=== PATIENT | male | born 1950 | race Caucasian/White ===

== ENCOUNTER 2022-09-16 09:51 | Outpatient (CLI) | payer MEDICARE, OTHER, SELFPAY ==
--- NOTE | ~2022-09-16 | CT_ITS ---
EXAMINATION: CT abdomen pelvis w con DATE: 09/16/2022 10:43 INDICATION: Abdominal pain. TECHNIQUE: Computed tomography (CT) of the abdomen and pelvis was performed with 100 mL Omnipaque 350 intravenous contrast. Automated exposure control and iterative reconstruction technique were employe d. The dose-length product was 586.18 mGy-cm. COMPARISON: None. FINDINGS: The visualized portions of the lung bases demonstrate mild atelectasis. There is mild eleva tion of right hemidiaphragm. No pleural effusion. The heart size is normal. No pericardial effusion. There are coronary artery calcifications. The liver demonstrates focal steatosis adjacent to the falc iform ligament. The gallbladder, spleen, pancreas, and adrenal glands are normal. There is cortical t hinning of the kidneys. There is a 9 mm cyst in right kidney. There is a 1 mm stone in right kidney. There is a 1 mm stone in left kidney. There is a cluster of stones in the bladder. The prostate is mo derately enlarged. There are no dilated loops of bowel. The appendix is normal. There are no patholog ically enlarged lymph nodes. There is no free intraperitoneal fluid. There is old fat necrosis in the inferior anterior peritoneum. There is a right inguinal hernia containing fat. There is severe lumba r spondylosis. There are changes of anterior fusion procedure from L4 to S1. Lumbar dextroscoliosis i s noted. IMPRESSION: 1. Stones in the kidneys and bladder. 2. Right inguinal hernia containing fat. Reviewed, dictated and finalized at location A. 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
[2022-09-16 10:35] LABS: Estimated Glomerular Filt Rate > 60
[2022-09-16 11:30] LABS: Basophils Percent Auto 0.5 % (0.2-1.2); Eosinophils Percent Auto 0.3 % (0-4.4); Hematocrit 50.1 % (42.0-52.0); Hemoglobin 16.7 g/dL (14.0-18.0); Immature Granulocyte Absolute 0.03 K/mm3 (0.00-0.031); Immature Granulocyte Percent A 0.5 % (0-0.5); Lymphocytes Absolute Auto 1.13 K/mm3 (0.9-3.2); Lymphocytes Percent Auto 18.9 % (18.3-44.2); Mean Corpuscular HGB Conc 33.3 g/dl (32-36); Mean Corpuscular Hemoglobin 30.1 pg (26-34); Mean Corpuscular Volume 90.4 fl (80-100); Mean Platelet Volume 9.8 fl (7.4-10.4); Monocytes Absolute Auto 0.6 K/mm3 (0.1-0.6); Monocytes Percent Auto 10.4 % (2.6-8.5); Neutrophils Absolute Auto 4.2 K/mm3 (1.3-6.7); Neutrophils Percent Auto 69.4 % (45.5-73.1); Platelet Count Result 200 k/mm3 (150-375); Red Blood Count 5.54 M/mm3 (4.6-6.20); Red Cell Distribution Width 16.3 % (11.5-14.5)
[2022-09-16 11:41] LABS: Alanine Aminotransferase 30 U/L (6-50); Albumin Level 4.6 g/dL (3.5-5.1); Alkaline Phosphatase 53 U/L (38-126); Amylase 70 U/L (30-110); Anion Gap 6 mmol/L (8-16); Aspartate Amino Transferase 31 U/L (17-59); Bilirubin,Total 0.8 mg/dL (0.2-1.3); Blood Urea Nitrogen 24 mg/dL (9-20); Calcium 10.4 mg/dL (8.4-10.2); Carbon Dioxide 32 mmol/L (22-30); Chloride 99 mmol/L (98-107); Estimated Glomerular Filt Rate > 60; Glucose 99 mg/dL (65-110); Lipase 63 U/L (23-300); Potassium 4.4 mmol/L (3.4-5.0); Sodium 137 mmol/L (137-145)
[2022-09-16 12:04] LABS: Appearance Urine Clear (Clear); Bilirubin Urine Negative (Negative); Blood Urine 1+ (Negative); Color Urine Yellow (Yellow); Glucose Urine UA Negative (Negative); Ketones Urine Negative (Negative); Leukocyte Esterase Ur Negative LEU/UL (Negative); Nitrate Urine Negative (Negative); Protein Urine Negative (Negative); Specific Grav Ur <= 1.005 (1.001-1.035); Urobilinogen Urine 0.2 mg/dL (<2.0)
[2022-09-16 13:57] LABS: Add Urine Microscopic? YES
== END 2022-09-16 09:52 | disposition home or self-care (01) ==
PROVIDERS: PCP Family Medicine; Visit Provider Family Medicine
DX: R10.9 Unspecified abdominal pain (principal); N20.0 Calculus of kidney; K40.90 Unilateral inguinal hernia, without obstruction or gangrene, not specified as recurrent
CPT/HCPCS: 74177; 80048; 80076; 81001; 82150; 83690; 85025; Q9967

== ENCOUNTER 2023-01-18 09:53 | Outpatient (CLI) | payer MEDICARE, OTHER, SELFPAY ==
--- NOTE | ~2023-01-18 | XR_ITS ---
EXAMINATION: XR abdomen/kub 1V DATE: 01/18/2023 10:10 INDICATION: Benign prostatic hypertrophy with urinary obstruction. TECHNIQUE: A supine view of the abdomen on 2 radiographs was obtained. COMPARISON: CT abdomen and pelvis 09/16/2020 FINDINGS: There are no dilated loops of bowel. There are phleboliths in the pelvis. There are stones in the bladder measuring up to 4 mm. IMPRESSION: 1. Small bladder stones. Reviewed, dictated and finalized at location A. IMPRESSION: 1. Small bladder stones.
== END 2023-01-18 09:54 | disposition home or self-care (01) ==
PROVIDERS: PCP Family Medicine; Visit Provider Urology
DX: N40.1 Benign prostatic hyperplasia with lower urinary tract symptoms (principal); N21.0 Calculus in bladder
CPT/HCPCS: 74018

== ENCOUNTER 2024-01-25 09:53 | Outpatient (CLI) | payer MEDICARE, OTHER, SELFPAY ==
--- NOTE | ~2024-01-25 | XR_ITS ---
EXAMINATION: XR abdomen/kub 1V DATE: 01/25/2024 10:07 INDICATION: Bilateral kidney stones. TECHNIQUE: A supine view of the abdomen on 2 radiographs was obtained. COMPARISON: None. FINDINGS: There are no dilated loops of bowel. The kidneys are obscured by bowel. There are calcifica tions overlying the pelvis measuring up to 5 mm. There are changes of anterior fusion procedure at L4 -L5 and L5-S1. There is a total left hip arthroplasty. IMPRESSION: 1. Calcifications measuring up to 5 mm overlying the pelvis, which may be phleboliths or bladder ston es. Reviewed, dictated and finalized at location E. IMPRESSION: 1. Calcifications measuring up to 5 mm overlying the pelvis, which may be phleb oliths or bladder stones.
== END 2024-01-25 09:54 | disposition home or self-care (01) ==
PROVIDERS: PCP Family Medicine; Visit Provider Urology
DX: N20.0 Calculus of kidney (principal)
CPT/HCPCS: 74018

== ENCOUNTER 2024-03-03 10:48 | Inpatient (IN) | payer MEDICARE, OTHER, SELFPAY ==
[2024-03-03] VITALS (19 sets, daily range): BP systolic 116–167; BP diastolic 96–130; PULSE 52–126; RESP 13–22; TEMP 35.6–36.6; O2SAT 95–98; BMI 29.8
--- NOTE | 2024-03-03 | ECHO_ITS ---
Patient Info Name: Marko Lyons Age: 73 years : 1950 Gender: Male Ht: 67 in Wt: 190 lbs BSA: 2.04 m2 HR: 112 bpm Technical Quality: Fair Exam Date: 03/03/2024 3:59 PM Exam Location: Echo Lab Patient Status: Outpatient Admit Date: 03/03/2024 Staff Ordering Physician: Lizbeth Cancino APRN Cyber Ops Planner: Sara Brumfield RDCS Attending Provider: Olga Carrillo MD Referring Physician: Julita CALHOUN; Exam Type: CA echo doppler color flow Study Info Indications I48.1 - Persistent atrial fibrillation Complete two-dimensional, color flow and Doppler transthoracic echocardiogram is performed. Summary 1. Complete two-dimensional, color flow and Doppler transthoracic echocardiogram is performed. 2. Left ventricular systolic function is severely reduced, estimated at 25-30%. 3. Right ventricular systolic function is reduced. 4. Left atrial chamber dimension is moderately enlarged. 5. Right atrial chamber dimension is moderately enlarged. 6. There is moderate mitral valve regurgitation. Left Ventricle Left ventricular chamber dimension is mildly enlarged. Left ventricular systolic function is severely reduced, estimated at 25-30%. There is no increased left ventricular wall thickness. Right Ventricle Right ventricular chamber dimension is mildly enlarged. Right ventricular systolic function is reduced. Left Atria Left atrial chamber dimension is moderately enlarged. Right Atria Right atrial chamber dimension is moderately enlarged. Aortic Valve The aortic valve is trileaflet. There is no aortic valve sclerosis. There is no aortic valve stenosis. There is no aortic valve regurgitation. Pulmonic Valve The pulmonic valve is not well visualized. Mitral Valve The mitral valve has normal leaflets. There is no mitral valve stenosis. There is moderate mitral valve regurgitation. Tricuspid Valve The tricuspid valve leaflets are normal. There is mild tricuspid valve stenosis. There is no tricuspid valve regurgitation. Mild pulmonary hypertension, estimated pulmonary arterial systolic pressure is 39 mmHg. Pericardium/Pleural The pericardium appears normal. There is no pericardial effusion. Inferior Vena Cava Inferior vena cava is not well visualized. Aorta The aortic root size at the sinus of Valsalva is normal. The prox ascending aorta size is normal. Left Ventricular Outflow Tract Name Value Normal LVOT 2D LVOT Diameter 2.0 cm LVOT Doppler LVOT Peak Gradient 2 mmHg LVOT Mean Gradient 1 mmHg LVOT VTI 11 cm LVOT VTI/AV VTI Ratio 0.7 LVOT Stroke Volume 36 ml LVOT CO 9.0 l/min LVOT CI 4.4 l/min/m2 Pulmonic Valve Name Value Normal RVOT Doppler RVOT Peak Gradient 0 mmHg PV Doppler
--- NOTE | ~2024-03-03 | XR_ITS ---
Portable chest x-ray Comparison: None Clinical History: Weakness Findings: Lungs are clear, without focal consolidation or pleural effusion. Cardiomediastinal silho uette is enlarged. Bones and soft tissues are unremarkable. Impression: Clear lungs. Cardiomegaly. Reviewed, dictated and finalized at location . Impression: Clear lungs. Cardiomegaly.
--- NOTE | 2024-03-03 11:12 | ECG_ITS ---
SEE SCANNED COPY FOR CONFIRMED REPORT MTDD
[2024-03-03 11:22] LABS: Basophils Absolute Auto 0.1 K/mm3 (0.0-0.1); Eosinophils Absolute Auto 0.1 K/mm3 (0-0.3); Eosinophils Percent Auto 1.8 % (0-4.4); Hematocrit 50.7 % (42.0-52.0); Hemoglobin 16.9 g/dL (14.0-18.0); Immature Granulocyte Absolute 0.03 K/mm3 (0.00-0.031); Immature Granulocyte Percent A 0.6 % (0-0.5); Lymphocytes Absolute Auto 1.27 K/mm3 (0.9-3.2); Lymphocytes Percent Auto 24.8 % (18.3-44.2); Mean Corpuscular HGB Conc 33.3 g/dl (32-36); Mean Corpuscular Hemoglobin 29.5 pg (26-34); Mean Corpuscular Volume 88.6 fl (80-100); Mean Platelet Volume 9.7 fl (7.4-10.4); Monocytes Absolute Auto 0.4 K/mm3 (0.1-0.6); Monocytes Percent Auto 7.2 % (2.6-8.5); Neutrophils Absolute Auto 3.3 K/mm3 (1.3-6.7); Neutrophils Percent Auto 64.6 % (45.5-73.1); Platelet Count Result 150 k/mm3 (150-375); Red Blood Count 5.72 M/mm3 (4.6-6.20); Red Cell Distribution Width 17.5 % (11.5-14.5); White Blood Count 5.1 K/mm3 (4.5-10.0)
[2024-03-03 11:32] LABS: Alanine Aminotransferase 30 U/L (6-50); Albumin Level 4.9 g/dL (3.5-5.1); Alkaline Phosphatase 59 U/L (38-126); Anion Gap 8 mmol/L (4-12); Aspartate Amino Transferase 41 U/L (17-59); Bilirubin,Total 1.1 mg/dL (0.2-1.3); Blood Urea Nitrogen 16 mg/dL (9-20); Calcium 10.5 mg/dL (8.4-10.2); Carbon Dioxide 26 mmol/L (22-30); Chloride 105 mmol/L (98-107); Estimated CRCL calculation 76 ml/min; Estimated Glomerular Filt Rate > 60; Glucose 101 mg/dL (65-110); Potassium 4.4 mmol/L (3.4-5.0); Sodium 139 mmol/L (137-145)
[2024-03-03] MEDS: MAGNESIUM SULF 2 GM/WATER 50ML 2 GM/50 ML BAG IVPB (11:33)
[2024-03-03] MEDS: LACTATED RINGERS 1,000 ML 999 ML IV CONT (11:33)
[2024-03-03 11:41] LABS: NT Pro B Type Natriuretic Pept 803 pg/mL (19.9-100)
[2024-03-03 11:46] LABS: D Dimer 0.44 ug/mL (<0.48)
[2024-03-03] MEDS: METOPROLOL TARTRATE 50 MG TAB 25 MG PO (11:50)
[2024-03-03] MEDS: METOPROLOL TARTRATE INJ 5 MG/5 ML VIAL IV PUSH (11:50)
[2024-03-03 12:57] LABS: Troponin I < 0.012 ng/mL (0.000-0.034)
--- NOTE | 2024-03-03 13:09 | ED.WEAKNESS ---
HPI - Weakness General Chief complaint: Weakness Stated complaint: weakness, htn Time Seen by Provider: 03/03/24 11:14 History of Present Illness HPI Narrative: Patient presenting with generalized weakness, ongoing for last 2 days, no nausea vomiting or diarrhea, no fevers or chills, did have a very slight cough about a week ago but none now, no dysuria. Has never had cardiac issues in the past and was told that he has strong heart by his doctor. Related Data Allergies Allergy/AdvReac Type Severity Reaction Status Date / Time No Known Allergies Allergy Verified 03/03/24 10:49 Review of Systems Review of Systems: All systems reviewed & are unremarkable except as noted in HPI and below Exam Narrative: EXAMINATION OF ORGAN SYSTEMS/BODY AREAS: Constitutional: Vital signs per nursing GENERAL:[No acute distress, non-toxic appearing.] Does appear tired. HEAD: Normal with no signs of head trauma. EYES: EOMI, conjunctiva normal ENT: Hearing grossly intact LUNGS: Nonlabored breathing. HEART: Irregularly irregular, tachycardic ABD: [Soft], [nontender to palpation] EXT: Normal range of motion, no lower extremity edema or tenderness, neg Sil's sign SKIN: [No rashes or lesions.] NEURO: [Alert and oriented x 3. No gross focal sensory or strength deficits.] PSYCH: Normal affect Course Vital Signs Vital signs: Vital Signs Temperature 97.6 F 03/03/24 11:02 Pulse Rate 86 03/03/24 11:02 Respiratory Rate 18 03/03/24 11:02 Blood Pressure 135/98 H 03/03/24 11:02 Pulse Oximetry 97 03/03/24 11:02 Oxygen Delivery Room Air 03/03/24 11:02 Temperature 97.6 F 03/03/24 11:02 Pulse Rate 92 03/03/24 13:59 Respiratory Rate 16 03/03/24 13:59 Blood Pressure 121/109 H 03/03/24 13:01 Pulse Oximetry 95 03/03/24 13:01 Oxygen Delivery Room Air 03/03/24 11:02 MDM - Weakness MDM Narrative Medical decision making narrative: 73M p/w generalized weakness, on exam has irregularly tachycardic rhythm, EKG on my independent interpretation showing afib with RVR and PVCs rate 121 and RBBB, QRS 146, [address] elevations or depressions. I a.m. concerned for possible new onset CHF, atrial fibrillation, possible PE, electrolyte abnormality. Labs and imaging obtained, he does have on my own independent interpretation enlarged cardiac silhouette, he does have elevated BNP, negative troponin and D-dimer. I did therefore give him a small dose of metoprolol and IV fluids and I do feel he warrants admission at this time for further workup. On re-evaluation I did clean the plan and findings with the patient and at bedside who are agreeable to this, he states that he is feeling better, his heart rate has improved to the 80s now, on telemetry does continue to be in atrial fibrillation. Discussed with developer relations manager Dr. Elliott who will consult, discussed with hospitalist to admit. Lab Data 03/03/24 11:15 03/03/24 11:15 Labs: Lab Results 03/03/24 03/03/24 03/03/24 Range/Units 11:13 11:15 13:43 WBC 5.1 (4.5-10.0) K/mm3 RBC 5.72 (4.6-6.20) M/mm3 Hgb 16.9 (14.0-18.0) g/dL Hct 50.7 (42.0-52.0) % MCV 88.6 (80-100) fl MCH 29.5 (26-34) pg MCHC 33.3 (32-36) g/dl RDW 17.5 H (11.5-14.5) % Plt Count 150 (150-375) k/mm3 MPV 9.7 (7.4-10.4) fl Immature Gran % (Auto) 0.6 H (0-0.5) % Neut % (Auto) 64.6 (45.5-73.1) % Lymph % (Auto) 24.8 (18.3-44.2) % Fajardo % (Auto) 7.2 (2.6-8.5) % Eos % (Auto) 1.8 (0-4.4) % Baso % (Auto) 1.0 (0.2-1.2) % Lymph # (Auto) 1.27 (0.9-3.2) K/mm3 Fajardo # (Auto) 0.4 (0.1-0.6) K/mm3 Eos # (Auto) 0.1 (0-0.3) K/mm3 Baso # (Auto) 0.1 (0.0-0.1) K/mm3 Abs Immat Gran (auto) 0.03 (0.00-0.031) K/mm3 Absolute Neuts (auto) 3.3 (1.3-6.7) K/mm3 Absolute Nucleated RBC 0.000 (0.0-0.012) K/mm3 Nucleated RBC % 0.0 (0.0-0.2) % D-Dimer 0.44 (<0.48) ug/mL Sod
[2024-03-03 13:57] LABS: Appearance Urine Clear (Clear); Bilirubin Urine Negative (Negative); Blood Urine Negative (Negative); Color Urine Yellow (Yellow); Glucose Urine UA Negative (Negative); Ketones Urine Negative (Negative); Leukocyte Esterase Ur Negative LEU/UL (Negative); Nitrate Urine Negative (Negative); Protein Urine Negative (Negative); Specific Grav Ur 1.009 (1.001-1.035); Urobilinogen Urine 0.2 mg/dL (<2.0); pH Urine 6.5 (5.0-9.0)
[2024-03-03 14:01] LABS: Add Urine Microscopic? NO
--- NOTE | 2024-03-03 15:00 | ADMGEN ---
This patient, Marko Lyons, was admitted to Medical Room 245-. Patient/family oriented to hospital policies and general routines including ID bracelet, bed and alarms, visiting hours, pain management, procedures, bathroom and other care routines, personal items, smoking policy, room service/diet, and visiting hours. Information on how to activate the Rapid Response Team has been discussed. Patient/Family are encouraged to report perceived risks to care and to ask questions if they do not understand what they are told or what they should do.
--- NOTE | 2024-03-03 15:25 | PM.CNCAR ---
Assessment and Plan Assessment and plan (1) Atrial fibrillation with rapid ventricular response: Code(s): I48.91 - Unspecified atrial fibrillation Status: Acute Assessment and Plan: New diagnosis of atrial fibrillation. By history, sounds like he has probably been in atrial fibrillation for about a month. I discussed the pathophysiology of atrial fibrillation as well as potential complications/risks and management strategies. For now, will proceed with rate control strategy. Give 1 dose of metoprolol 25 mg now and will order metoprolol 25 mg q.12 hours going forward. He has a CHADS2 Vasc score 3 for his age and hypertension. Anticoagulation is indicated. Will start Xarelto tonight. TSH ordered Will check an ApneaLink tonight Continue to monitor on telemetry Echo has been ordered and is pending (2) Hypertension: Code(s): I10 - Essential (primary) hypertension Status: Acute Assessment and Plan: Will see how his blood pressure response with metoprolol. History of Present Illness History of Present Illness Consult date/time: 03/03/24 15:25 Requesting physician: Gaby Dodson MD Consult reason: atrial fibrillation Reason For Visit: New Afib with RVR/New CHF Narrative: Marko Lyons is a 73-year-old male with no significant medical history. This is a patient who presented to the emergency department with a complaint of shortness of breath, weakness, and fatigue. He began experiencing the symptoms about 1 month ago. He denies any chest pain, palpitations, swelling, syncope, presyncope. The emergency department, he was found to be in atrial fibrillation with rapid ventricular response. He was given IV and oral metoprolol which transiently improved his heart rate. His symptoms also improved with heart rate control. Currently, he is resting comfortably in bed and does not have any complaints. Review of Systems Review of Systems: All systems reviewed & are unremarkable except as noted in HPI and below Meds Home Medications and Allergies Allergies Allergy/AdvReac Type Severity Reaction Status Date / Time No Known Allergies Allergy Verified 03/03/24 10:49 Vital Signs Vital Signs - 24 hr 03/03/24 11:02 03/03/24 11:16 03/03/24 11:32 Temperature 36.4 C Pulse Rate 86 126 H 122 H Respiratory Rate 18 20 14 Blood Pressure 135/98 H 141/104 H 167/130 H Pulse Oximetry 97 97 97 Oxygen Delivery Room Air 03/03/24 11:50 03/03/24 11:50 03/03/24 12:01 Temperature Pulse Rate 114 H 123 H 108 H Respiratory Rate 16 Blood Pressure 122/104 H Pulse Oximetry 96 Oxygen Delivery 03/03/24 12:31 03/03/24 13:01 03/03/24 13:59 Temperature Pulse Rate 87 112 H 92 Respiratory Rate 13 16 16 Blood Pressure 125/101 H 121/109 H Pulse Oximetry 98 95 Oxygen Delivery 03/03/24 13:31 03/03/24 14:01 03/03/24 15:10 Temperature 36.1 C L Pulse Rate 94 94 113 H Respiratory Rate 18 19 18 Blood Pressure 125/101 H 117/103 H 133/96 H Pulse Oximetry 97 97 97 Oxygen Delivery Exam Const: General: comfortable, no acute distress, alert and awake Orientation/consciousness: patient oriented x3 HENMT: Head: normal to inspection Eyes: General: appearance normal, both eyes and all related structures Pupils: Equal, round and reactive pupils present Neck: Neck: normal visual inspection, supple and no JVD Carotids: normal carotid upstroke Resp: Effort & Inspection: normal respiratory effort Auscultation: clear to auscultation bilaterally Cardio: Rate: tachycardic Rhythm: abnormal rhythm irregularly irregular Heart sounds: S1 normal heart sound present, S2 normal heart sound present and no murmurs GI: Auscultation: normal bowel sounds Skin: General skin exam: normal color Neuro: General: patient oriented x3 Cranial nerves: Yes Equal, round and reactive pupils present Extrem: General: normal to inspection Psych: Appearance: grossly normal Mental Status: menta
[2024-03-03 16:07] LABS: Troponin I < 0.012 ng/mL (0.000-0.034)
--- NOTE | 2024-03-03 17:34 | PM.IMHP ---
H&P: HPI History of Present Illness Date/Time: 03/03/24 23:29 Chief Complaint: Generalized Weakness Narrative: 73 y/o M presents here with generalized weakness with PMH of anxiety, DDD, kidney stones, and chronic pain. Patient presents here with generalized weakness, shortness of breath, and fatigue that has been ongoing for the past 2 weeks. Symptoms started intermittently but have progressed to constant. Denies any accompanied chest pain, chest tightness, palpitations, presyncope, syncope, lower extremity edema, or recent illness. Does report that he has been monitoring his blood pressure at home which has been elevated around 140/106 on average for the past week. Denies history of hypertension, dysrhythmia, or heart disease. Fatigue and weakness have improved since HR has decreased. Initial VS at presentation: 97.6? F, HR 86, RR 18, 135/98, and 97% on RA. ED workup showed: No leukocytosis, no anemia, D-dimer 0.44, no significant electrolyte derangements, creatinine 0.8 and GFR >60, BNP 803, troponin negative x2, and UA not suspicious for UTI. CXR shows clear lungs and cardiomegaly. EKG shows AFib RVR with rate of 121. Review of Systems Review of Systems: All systems reviewed & are unremarkable except as noted in HPI and below PMFSH Past Medical History Medical History (Updated 03/03/24 @ 17:42 by Lizbeth Cancino APRN) Anxiety Cataracts, bilateral Chronic pain DDD (degenerative disc disease) Eczema Kidney stones Skin cancer Surgical History Surgical History History of hernia repair History of spinal surgery Social History Social History Smoking packs per day: 0.25 Smoking cigarettes per day: 5.0 Years smoked: 4 Smoking pack-years: 1.00 Smoking status: Light tobacco smoker Tobacco type: cigarettes Second hand tobacco smoke exposure: Yes Alcohol intake: current Drinks per week: 12 Substance use: never Other substance usage details: 12 beers per week Do You Feel Safe in your Home?: Yes Lack of Transportation: No Lack of Food: Never True Current Housing: I Have Housing Concerned About Future Housing: No Difficulty Paying Gas/Electric Bills: No Difficulty Paying for Meds: No Currently Unemployed: No Education: Associate Degree Difficulty w/ Childcare or Family Care: No Spiritual care concerns: No Meds Home Medications and Allergies Home Medications Medication Instructions Recorded Confirmed Type alprazolam 0.5 mg tablet 0.5 mg PO TID 03/03/24 03/03/24 History finasteride 5 mg tablet 5 mg PO DAILY 03/03/24 03/03/24 History oxycodone-acetaminophen 10 mg-325 1 tablet PO BID 03/03/24 03/03/24 History mg tablet Allergies Allergy/AdvReac Type Severity Reaction Status Date / Time No Known Allergies Allergy Verified 03/03/24 10:49 Vital Signs Vital Signs - 24 hr 03/03/24 11:02 03/03/24 11:16 03/03/24 11:32 Temperature 97.6 F Pulse Rate 86 126 H 122 H Respiratory Rate 18 20 14 Blood Pressure 135/98 H 141/104 H 167/130 H Pulse Oximetry 97 97 97 Oxygen Delivery Room Air 03/03/24 11:50 03/03/24 11:50 03/03/24 12:01 Temperature Pulse Rate 114 H 123 H 108 H Respiratory Rate 16 Blood Pressure 122/104 H Pulse Oximetry 96 Oxygen Delivery 03/03/24 12:31 03/03/24 13:01 03/03/24 13:59 Temperature Pulse Rate 87 112 H 92 Respiratory Rate 13 16 16 Blood Pressure 125/101 H 121/109 H Pulse Oximetry 98 95 Oxygen Delivery 03/03/24 13:31 03/03/24 14:01 03/03/24 15:10 Temperature 97 F L Pulse Rate 94 94 113 H Respiratory Rate 18 19 18 Blood Pressure 125/101 H 117/103 H 133/96 H Pulse Oximetry 97 97 97 Oxygen Delivery Exam Const: General: comfortable and no acute distress Other: , male, nontoxic appearance HENMT: Face/Nose/Sinus: Normal nares present Mouth: Yes m
[2024-03-03] MEDS: RIVAROXABAN 20 MG TABLET PO (18:14)
[2024-03-03] MEDS: METOPROLOL TARTRATE 25 MG TABLET PO ×2 (18:14→22:19)
[2024-03-03] MEDS: ALPRAZolam (*CRX) 0.5 MG TABLET PO (18:15)
[2024-03-03] MEDS: oxyCODONE/ACETAMINOPHEN (*CRX) 10-325 MG TABLET 1 TAB PO (19:30)
[2024-03-03 19:37] LABS: Thyroid Stimulating Hormone Reflex 0.338 uIU/mL (0.465-4.68)
[2024-03-03 21:33] LABS: Free T4 Free Thyroxine Reflex 1.05 ng/dL (0.78-2.19)
[2024-03-03 22:26] LABS: Total Triiodothyronine (T3) 1.41 NG/ML (0.97-1.69)
[2024-03-04] VITALS (20 sets, daily range): BP systolic 107–141; BP diastolic 68–96; PULSE 70–151; RESP 16–22; TEMP 35.9–37; O2SAT 82–98
[2024-03-04 07:56] LABS: Hematocrit 51.6 % (42.0-52.0); Hemoglobin 17.1 g/dL (14.0-18.0); Mean Corpuscular HGB Conc 33.1 g/dl (32-36); Mean Corpuscular Hemoglobin 29.7 pg (26-34); Mean Corpuscular Volume 89.7 fl (80-100); Mean Platelet Volume 9.6 fl (7.4-10.4); Platelet Count Result 147 k/mm3 (150-375); Red Blood Count 5.75 M/mm3 (4.6-6.20); Red Cell Distribution Width 17.8 % (11.5-14.5); White Blood Count 5.7 K/mm3 (4.5-10.0)
[2024-03-04] MEDS: FINASTERIDE 5 MG TABLET PO (07:58)
[2024-03-04] MEDS: METOPROLOL TARTRATE 25 MG TABLET PO ×3 (07:58→21:39)
[2024-03-04] MEDS: oxyCODONE/ACETAMINOPHEN (*CRX) 10-325 MG TABLET 1 TAB PO ×2 (07:59→16:51)
[2024-03-04 08:08] LABS: Anion Gap 4 mmol/L (4-12); Blood Urea Nitrogen 15 mg/dL (9-20); Calcium 10.1 mg/dL (8.4-10.2); Carbon Dioxide 28 mmol/L (22-30); Chloride 106 mmol/L (98-107); Estimated CRCL calculation 86 ml/min; Estimated Glomerular Filt Rate > 60; Glucose 108 mg/dL (65-110); Magnesium 2.1 mg/dL (1.6-2.3); Potassium 4.2 mmol/L (3.4-5.0); Sodium 138 mmol/L (137-145)
[2024-03-04 09:04] LABS: INR 1.5; Prothrombin Time 19.2 Seconds (11.1-14.7)
[2024-03-04 09:05] LABS: Partial Thromboplastin Time 41.9 Seconds (22.3-36.8)
[2024-03-04] MEDS: ALPRAZolam (*CRX) 0.5 MG TABLET PO ×3 (10:35→18:42)
--- NOTE | 2024-03-04 10:50 | PM.IMPN ---
Progress Note: A&P Assessment and Plan (1) Atrial fibrillation with rapid ventricular response: Code(s): I48.91 - Unspecified atrial fibrillation Status: Acute Assessment and Plan: 03/03/24: - EKG, initial: Afib with RVR and PVCs, rate 121, RBBB, QRS 146, [address] QTc[address] elevations or depressions. - metoprolol 25 mg PO x1 and metoprolol 5 mg IVP given ED with great response, HR now in the 90s. - CXR: clear lungs and cardiomegaly - Troponin: <0.012 x2 - cardiology consulted, Tamra ALAMO Provided the following recs: start metoprolol 25 mg p.o. b.i.d. [id number] score 3 (age, new HTN) -> start Xarelto TSH and echo apnea link - check echo and TSH - telemetry monitoring 03/04/24: Currently rate controlled AFib Cardiology following Patient started on Xarelto and metoprolol 25 mg b.i.d. Continue tele monitoring Echo results pending ApneaLink showing an AHI of 25 with 34 minutes of his oxygen saturation below 88% 10 minutes where his oxygen saturation was below 85%, NAKUL is 28.1. He will need outpatient sleep study. Repeat ApneaLink on 2 L nasal cannula tonight Nursing reporting that his heart rate goes up into the 140s 150s with activity. He is currently on metoprolol 25 mg b.i.d. instructed nursing to call Cardiology for med adjustments. (2) Hypertension: Code(s): I10 - Essential (primary) hypertension Status: Acute Assessment and Plan: 03/03/24: - new, elevated BP vs HTN - monitor response with metoprolol - BP range since initial eval/admit: 133/96 - 167/130 03/04/24: Blood pressure ranging 116/96 to 147/96 Patient started on Spironolactone and Jardiance by Cardiology Time Spent With Patient Time with patient: 25 - 35 minutes Subjective Date/time seen: 03/04/24 10:50 Interval history: This is a 73-year-old male who presented to the hospital on 03/03/2024 with generalized weakness, shortness of breath, and fatigue which has been going on for the past 2 weeks.Patient also was monitoring his blood pressures at home which elevated to 140/106 without a history of hypertension or heart disease. Workup in the hospital included a chest x-ray which was negative for any cardiopulmonary disease, shown cardiomegaly. Initial labs showed a normal white blood cell count of 5.1, D-dimer 0.44, calcium 10.5, troponin negative x2, BNP 803, TSH 0.338, free T4 1.05, total T3 1.41. A UA was obtained and was negative. EKG shows AFib RVR with a rate of 121. Patient was given 2 g of Mag, 1 L of LR, and metoprolol while in the ED. Cardiology was consulted. On examination today patient is alert and oriented x3, lying in the bed. Family is at the bedside. Patient denies any fever, chills, nausea, vomiting, diarrhea, abdominal pain, chest pain, shortness a breath, lightheadedness, dizziness, headache. Labs today are unremarkable. His AFib is rate controlled in the 70s to 80s. Nursing reports whenever he gets up his heart rate goes to the 140s 150s and sustains. He also has had small runs of V-tach and multiple PVCs. His magnesium is 2.1, potassium was 4.2. He was started on metoprolol 25 mg b.i.d. and Xarelto 20 mg daily. Cardiology following. He will likely need adjustments to his metoprolol. They did talk to him about cardioversion on an outpatient basis. Review of Systems Review of Systems: All systems reviewed & are unremarkable except as noted in HPI and below Constitutional: Constitutional: Reports as per HPI and Reports no additional constitutional complaints Eyes: Eyes: Reports as per HPI and Reports no additional eye complaints ENT: Reports system reviewed and no additional complaints, except as documented and Reports as per HPI Cardiovascular: Cardiovascular: Reports as per HPI and Reports no additional cardiovascular complaints Respiratory: Respiratory: Reports as per HPI and Reports no additional respiratory complaints Gastrointestinal: Gastrointestinal: Reports as per HPI and Report
--- NOTE | 2024-03-04 13:17 | PM.PNCARD ---
Progress Note: A&P Assessment and Plan (1) Atrial fibrillation with rapid ventricular response: Code(s): I48.91 - Unspecified atrial fibrillation Status: Acute Plan Acute on chronic systolic heart failure New onset cardiomyopathy New diagnosis of atrial fibrillation persistent with RVR Plan Lasix 40 mg daily Start Entresto 24-26 p.o. b.i.d. Change metoprolol to 25 mg t.i.d. with a goal to change to metoprolol XL for discharge Start spironolactone 12.5 mg daily Start Jardiance 10 mg daily TSH Workup for cardiomyopathy Subjective Date/time seen: 03/04/24 13:17 Interval history: no acute events Cont to have SOB overnight Review of Systems Review of Systems: All systems reviewed & are unremarkable except as noted in HPI and below Exam Const: General: comfortable and no acute distress Other: Able to lie flat Resp: Auscultation: rales bilateral (basal) and lung sounds not diminished Other: No chest wall tenderness Cardio: Rate: regular rate Rhythm: regular rhythm Heart sounds: no gallops, no murmurs and no rubs GI: GI Palp: Yes Soft to palpation and No Tenderness to palpation present (GI) Auscultation: normal bowel sounds Objective Data Vital Signs Vital Signs: Vital Signs - 24 hr 03/03/24 13:59 03/03/24 13:31 03/03/24 14:01 Temperature Pulse Rate 92 94 94 Respiratory Rate 16 18 19 Blood Pressure 125/101 H 117/103 H Pulse Oximetry 97 97 Oxygen Delivery Oxygen Flow Rate Fraction of Inspired Oxygen 03/03/24 15:10 03/03/24 18:14 03/03/24 18:14 Temperature 36.1 C L 36.6 C Pulse Rate 113 H 98 98 Respiratory Rate 18 16 Blood Pressure 133/96 H 116/96 H Pulse Oximetry 97 Oxygen Delivery Oxygen Flow Rate Fraction of Inspired Oxygen 03/03/24 17:20 03/03/24 15:23 03/03/24 16:00 Temperature Pulse Rate 102 H 97 Respiratory Rate Blood Pressure Pulse Oximetry 95 Oxygen Delivery Room Air Oxygen Flow Rate Fraction of Inspired Oxygen 03/03/24 20:15 03/03/24 20:00 03/03/24 22:19 Temperature 35.6 C L Pulse Rate 52 L 88 90 Respiratory Rate 22 H Blood Pressure 147/96 H Pulse Oximetry 96 Oxygen Delivery Room Air Oxygen Flow Rate Fraction of Inspired Oxygen 05/17/24 23:41 03/04/24 04:00 03/04/24 06:00 Temperature 35.9 C L Pulse Rate 111 H 89 92 Respiratory Rate 20 Blood Pressure 120/96 H Pulse Oximetry 95 Oxygen Delivery Oxygen Flow Rate Fraction of Inspired Oxygen 03/04/24 07:03 03/04/24 07:05 03/04/24 07:07 Temperature 36.1 C L Pulse Rate 70 88 Respiratory Rate 18 Blood Pressure 141/79 H Pulse Oximetry 82 L 82 L 98 Oxygen Delivery Nasal Cannula Oxygen Flow Rate 2 Fraction of Inspired Oxygen 03/04/24 07:08 03/04/24 07:58 03/04/24 09:17 Temperature Pulse Rate 88 146 H Respiratory Rate 18 Blood Pressure Pulse Oximetry 98 98 Oxygen Delivery Nasal Cannula Nasal Cannula Oxygen Flow Rate 1 1 Fraction of Inspired Oxygen 03/04/24 08:00 Temperature Pulse Rate Respiratory Rate Blood Pressure Pulse Oximetry 98 Oxygen Delivery Oxygen Flow Rate 1 Fraction of Inspired Oxygen Intake/Output Intake/Output: Intake & Output 03/01/24 03/02/24 03/03/24 03/04/24 23:59 23:59 23:59 23:59 Intake Total 1370 90 Balance 1370 90 Meds/Results Medications: Active Medications Generic Name Dose Route Start Last Admin Trade Name Freq PRN Reason Stop Dose Admin Alprazolam 0.5 mg 03/03/24 18:05 03/04/24 10:35 Alprazolam (*Crx) 0.5 Mg Tablet PO 0.5 mg TID KATTY Administration Amlodipine Besylate 5 mg 03/05/24 09:00 Amlodipine Besylate 5 Mg Tablet PO QAM KATTY Finasteride 5 mg 03/04/24 09:00 03/04/24 07:58 Finasteride 5 Mg Tablet PO 5 mg DAILY KATTY Administration Metoprolol Tartrate 25 mg 03/03/24 21:00 03/04/24 07:58 Metoprolol Tartrate 25 Mg Tablet PO 25 mg Q12HR KATTY A
[2024-03-04] MEDS: FUROSEMIDE 40 MG TABLET PO (16:08)
[2024-03-04] MEDS: RIVAROXABAN 20 MG TABLET PO (16:51)
[2024-03-04] MEDS: SACUBITRIL/VALSARTAN 24-26 MG TABLET 1 TAB PO (21:40)
[2024-03-05] VITALS (12 sets, daily range): BP systolic 103–109; BP diastolic 63–88; PULSE 84–126; RESP 18–22; TEMP 36.2–37; O2SAT 94–101
[2024-03-05 05:18] LABS: Eosinophils Absolute Auto 0.1 K/mm3 (0-0.3); Eosinophils Percent Auto 3.1 % (0-4.4); Hematocrit 48.8 % (42.0-52.0); Hemoglobin 16.1 g/dL (14.0-18.0); Immature Granulocyte Absolute 0.02 K/mm3 (0.00-0.031); Immature Granulocyte Percent A 0.5 % (0-0.5); Immature Platelet Fraction Pct 5.5 % (0.9-11.2); Lymphocytes Absolute Auto 1.21 K/mm3 (0.9-3.2); Lymphocytes Percent Auto 31.3 % (18.3-44.2); Mean Corpuscular Hemoglobin 29.4 pg (26-34); Mean Corpuscular Volume 89.2 fl (80-100); Mean Platelet Volume 9.8 fl (7.4-10.4); Monocytes Absolute Auto 0.3 K/mm3 (0.1-0.6); Monocytes Percent Auto 8.5 % (2.6-8.5); Neutrophils Absolute Auto 2.2 K/mm3 (1.3-6.7); Neutrophils Percent Auto 55.6 % (45.5-73.1); Platelet Count Result 146 k/mm3 (150-375); Red Blood Count 5.47 M/mm3 (4.6-6.20); White Blood Count 3.9 K/mm3 (4.5-10.0)
[2024-03-05 06:16] LABS: Alanine Aminotransferase 38 U/L (6-50); Albumin Level 4.1 g/dL (3.5-5.1); Alkaline Phosphatase 49 U/L (38-126); Anion Gap 5 mmol/L (4-12); Aspartate Amino Transferase 40 U/L (17-59); Blood Urea Nitrogen 17 mg/dL (9-20); Calcium 9.7 mg/dL (8.4-10.2); Carbon Dioxide 29 mmol/L (22-30); Chloride 105 mmol/L (98-107); Estimated CRCL calculation 76 ml/min; Estimated Glomerular Filt Rate > 60; Glucose 104 mg/dL (65-110); Magnesium 2.1 mg/dL (1.6-2.3); Potassium 4.1 mmol/L (3.4-5.0); Sodium 139 mmol/L (137-145)
--- NOTE | 2024-03-05 08:14 | P.PNIM_ITS ---
Progress Note: A&P Assessment and Plan (1) Atrial fibrillation with rapid ventricular response: Code(s): I48.91 - Unspecified atrial fibrillation Status: Acute (2) Hypertension: Code(s): I10 - Essential (primary) hypertension Status: Acute (3) Cardiomyopathy: Code(s): I42.9 - Cardiomyopathy, unspecified Status: Acute (4) Acute on chronic systolic congestive heart failure: Code(s): I50.23 - Acute on chronic systolic (congestive) heart failure Status: Acute Plan AFIB w/RVR * EKG, initial: Afib with RVR and PVCs, rate 121, RBBB, QRS 146, [address] elevations or depressions. * metoprolol 25 mg PO x1 and metoprolol 5 mg IVP given ED with great response, HR now in the 90s. * CXR: clear lungs and cardiomegaly * Troponin: <0.012 x2 * cardiology consulted * start metoprolol 25 mg p.o. b.i.d. * [id number] score 3 (age, new HTN) * Xarelto started * TSH and echo * apnea link * Echo pending * telemetry monitoring 03/04/24: * Currently rate controlled AFib * Cardiology following * Patient started on Xarelto and metoprolol 25 mg b.i.d. * Continue tele monitoring * Echo results pending * ApneaLink showing an AHI of 25 with 34 minutes of his oxygen saturation below 88% 10 minutes where his oxygen saturation was below 85%, NAKUL is 28.1.? He will need outpatient sleep study. * Repeat ApneaLink on 2 L nasal cannula tonight 03/05/24: * Echo shows systolic dysfunction LVEF 25-30 * HR in the low 100's * cardiology adjusting medications as BP tolerates BP 109/88 today * Metoprolol changed to 100 mg XL * NPO * Possible cardioversion 03/06 Acute chronic systolic heart failure * cardiology consulted * PO Lasix daily, spironolactone 12.5 * monitor renal function during diuresis * echocardiogram: Echo shows systolic dysfunction LVEF 25-30 * EKG: AFIB RVR POA * chest x-ray: Cardiomegaly * Lipid panel, TSH, liver function test. * Optimize Tirso inhibitors, beta-blockers, ARNI * Antiplatelet therapy, statin therapy, loop diuretics as indicated,. * Optimize blood pressure less than 130/80. New onset cardiomyopathy * Echo reviewed LVEF 25-30 * Cardiology consulted * started on entresto 24-26 PO BID * Per Cardiology: Change metoprolol to 25 mg t.i.d. with a goal to change to metoprolol XL for discharge HTN * new, elevated BP vs HTN * monitor response with metoprolol * BP range since initial eval/admit: 133/96 - 167/130 03/04/24: * Blood pressure ranging 116/96 to 147/96 * Patient started on Spironolactone and Jardiance by Cardiology 03/05: * BP well controlled 109/88 * BB changed to 100MG XL, entresto increased and stopped amlodipine HX BPH: Resumed finasteride Code status: Full code per patient DVT prophylaxis: Xarelto Stress ulcer prophylaxis: Protonix 40 daily PT/OT notes: Ambulatory Disposition: Patient was admitted to the cardiac unit due to new onset AFib RVR, acute on chronic systolic heart failure, new onset cardiomyopathy. Patient's heart rate continues to be in the low 100s is following and adjusting meds as BP tolerates possible cardioversion tomorrow HR as high as 160's with activity may need lifevest at discharge. Time Spent With Patient Time with patient: 15 - 25 minutes Subjective Date/time seen: 03/05/24 08:14 Interval history: Admission: MEDICAL CHART This is a 73-year-old male who presented to the hospital on 03/03/2024 with generali
--- NOTE | 2024-03-05 08:14 | PM.IMPN ---
Progress Note: A&P Assessment and Plan (1) Atrial fibrillation with rapid ventricular response: Code(s): I48.91 - Unspecified atrial fibrillation Status: Acute (2) Hypertension: Code(s): I10 - Essential (primary) hypertension Status: Acute (3) Cardiomyopathy: Code(s): I42.9 - Cardiomyopathy, unspecified Status: Acute (4) Acute on chronic systolic congestive heart failure: Code(s): I50.23 - Acute on chronic systolic (congestive) heart failure Status: Acute Plan AFIB w/RVR EKG, initial: Afib with RVR and PVCs, rate 121, RBBB, QRS 146, [address] elevations or depressions. metoprolol 25 mg PO x1 and metoprolol 5 mg IVP given ED with great response, HR now in the 90s. CXR: clear lungs and cardiomegaly Troponin: <0.012 x2 cardiology consulted start metoprolol 25 mg p.o. b.i.d. [id number] score 3 (age, new HTN) Xarelto started TSH and echo apnea link Echo pending telemetry monitoring 03/04/24: Currently rate controlled AFib Cardiology following Patient started on Xarelto and metoprolol 25 mg b.i.d. Continue tele monitoring Echo results pending ApneaLink showing an AHI of 25 with 34 minutes of his oxygen saturation below 88% 10 minutes where his oxygen saturation was below 85%, NAKUL is 28.1.? He will need outpatient sleep study. Repeat ApneaLink on 2 L nasal cannula tonight 03/05/24: Echo shows systolic dysfunction LVEF 25-30 HR in the low 100's cardiology adjusting medications as BP tolerates BP 109/88 today Metoprolol changed to 100 mg XL NPO Possible cardioversion 03/06 Acute chronic systolic heart failure cardiology consulted PO Lasix daily, spironolactone 12.5 monitor renal function during diuresis echocardiogram: Echo shows systolic dysfunction LVEF 25-30 EKG: AFIB RVR POA chest x-ray: Cardiomegaly Lipid panel, TSH, liver function test. Optimize Tirso inhibitors, beta-blockers, ARNI Antiplatelet therapy, statin therapy, loop diuretics as indicated,. Optimize blood pressure less than 130/80. New onset cardiomyopathy Echo reviewed LVEF 25-30 Cardiology consulted started on entresto 24-26 PO BID Per Cardiology: Change metoprolol to 25 mg t.i.d. with a goal to change to metoprolol XL for discharge HTN new, elevated BP vs HTN monitor response with metoprolol BP range since initial eval/admit: 133/96 - 167/130 03/04/24: Blood pressure ranging 116/96 to 147/96 Patient started on Spironolactone and Jardiance by Cardiology 03/05: BP well controlled 109/88 BB changed to 100MG XL, entresto increased and stopped amlodipine HX BPH: Resumed finasteride Code status: Full code per patient DVT prophylaxis: Xarelto Stress ulcer prophylaxis: Protonix 40 daily PT/OT notes: Ambulatory Disposition: Patient was admitted to the cardiac unit due to new onset AFib RVR, acute on chronic systolic heart failure, new onset cardiomyopathy. Patient's heart rate continues to be in the low 100s is following and adjusting meds as BP tolerates possible cardioversion tomorrow HR as high as 160's with activity may need lifevest at discharge. Time Spent With Patient Time with patient: 15 - 25 minutes Subjective Date/time seen: 03/05/24 08:14 Interval history: Admission: MEDICAL CHART This is a 73-year-old male who presented to the hospital on 03/03/2024 with generalized weakness, shortness of breath, and fatigue which has been going on for the past 2 weeks.Patient also was monitoring his blood pressures at home which elevated to 140/106 without a history of hypertension or heart disease. Workup in the hospital included a chest x-ray which was negative for any cardiopulmonary disease, shown cardiomegaly. Initial labs showed a normal white blood cell count of 5.1, D-dimer 0.44, calcium 10.5, troponin negative x2, BNP 803, TSH 0.338, free T4 1.05, total T3 1.41. A UA was obtained and was negative. EK
[2024-03-05] MEDS: FINASTERIDE 5 MG TABLET PO (08:22)
[2024-03-05] MEDS: SACUBITRIL/VALSARTAN 24-26 MG TABLET 1 TAB PO ×2 (08:22→21:07)
[2024-03-05] MEDS: ALPRAZolam (*CRX) 0.5 MG TABLET PO ×3 (08:22→16:45)
[2024-03-05] MEDS: SPIRONOLACTONE 12.5 MG TABLET PO (08:23)
[2024-03-05] MEDS: oxyCODONE/ACETAMINOPHEN (*CRX) 10-325 MG TABLET 1 TAB PO ×2 (08:23→16:45)
[2024-03-05] MEDS: FUROSEMIDE 40 MG TABLET PO (08:23)
[2024-03-05] MEDS: METOPROLOL TARTRATE 25 MG TABLET PO (08:23)
[2024-03-05 09:02] LABS: Cholesterol 151 mg/dL (0-200); HDL Direct 43 mg/dL; Triglycerides 67 mg/dL (<150)
[2024-03-05 09:18] LABS: LDL Cholesterol Direct 103 mg/dL
--- NOTE | 2024-03-05 12:07 | PM.PNCARD ---
Progress Note: A&P Assessment and Plan (1) Cardiomyopathy: Code(s): I42.9 - Cardiomyopathy, unspecified Status: Acute Plan Cardiomyopathy ejection fraction 25-30%, continue Lasix, change beta-munir metoprolol to XL, continue Entresto and add Jardiance may need a LifeVest on discharge Atrial fibrillation with intermittent RVR, changed to metoprolol XL 100 mg daily, keep NPO for possible EDWIN cardioversion and continue Xarelto Hypertension controlled, replace amlodipine with higher doses of Entresto and beta-blockers Subjective Date/time seen: 03/05/24 12:07 Interval history: no acute events Tele: AF rate controlled most of time and intermittently > 140 with activity Review of Systems Review of Systems: All systems reviewed & are unremarkable except as noted in HPI and below Exam Const: General: comfortable and no acute distress Other: Able to lie flat Resp: Auscultation: clear to auscultation bilaterally and lung sounds not diminished Other: No chest wall tenderness Cardio: Rate: regular rate Rhythm: regular rhythm Heart sounds: no gallops, no murmurs and no rubs GI: GI Palp: Yes Soft to palpation and No Tenderness to palpation present (GI) Auscultation: normal bowel sounds Skin: General skin exam: normal color, rashes and/or lesions noted and no erythema Other: Warm Objective Data Vital Signs Vital Signs: Vital Signs - 24 hr 03/04/24 13:56 03/04/24 13:57 03/04/24 13:59 Temperature 36.6 C Pulse Rate 99 98 Respiratory Rate 16 Blood Pressure 109/68 Pulse Oximetry 95 96 Oxygen Delivery Room Air Oxygen Flow Rate Fraction of Inspired Oxygen 03/04/24 16:07 03/04/24 16:00 03/04/24 20:27 Temperature 37.0 C Pulse Rate 95 89 Respiratory Rate 22 H Blood Pressure 115/73 107/79 Pulse Oximetry 95 Oxygen Delivery Oxygen Flow Rate Fraction of Inspired Oxygen 03/04/24 21:26 03/04/24 21:39 03/04/24 20:00 Temperature Pulse Rate 108 H 108 H Respiratory Rate Blood Pressure Pulse Oximetry 95 95 Oxygen Delivery Nasal Cannula Nasal Cannula Oxygen Flow Rate 1 2 Fraction of Inspired Oxygen 03/04/24 20:00 03/05/24 00:00 03/05/24 05:01 Temperature 36.2 C L Pulse Rate 85 108 H 96 Respiratory Rate 20 Blood Pressure 109/88 Pulse Oximetry 101 H Oxygen Delivery Oxygen Flow Rate Fraction of Inspired Oxygen 03/05/24 04:00 03/05/24 08:23 03/05/24 08:00 Temperature Pulse Rate 95 110 H 122 H Respiratory Rate Blood Pressure Pulse Oximetry Oxygen Delivery Oxygen Flow Rate Fraction of Inspired Oxygen Intake/Output Intake/Output: Intake & Output 03/02/24 03/03/24 03/04/24 03/05/24 23:59 23:59 23:59 23:59 Intake Total 1370 880 120 Balance 1370 880 120 Meds/Results Medications: Active Medications Generic Name Dose Route Start Last Admin Trade Name Freq PRN Reason Stop Dose Admin Alprazolam 0.5 mg 03/03/24 18:05 03/05/24 08:22 Alprazolam (*Crx) 0.5 Mg Tablet PO 0.5 mg TID KATTY Administration Finasteride 5 mg 03/04/24 09:00 03/05/24 08:22 Finasteride 5 Mg Tablet PO 5 mg DAILY AKTTY Administration Furosemide 40 mg 03/04/24 14:40 03/05/24 08:23 Furosemide 40 Mg Tablet PO 40 mg DAILY KATTY Administration Metoprolol Tartrate 25 mg 03/05/24 09:00 03/05/24 08:23 Metoprolol Tartrate 25 Mg Tablet PO 25 mg TID KATTY Administration Oxycodone/Acetaminophen 1 tab 03/03/24 18:05 03/05/24 08:23 Oxycodone/Acetaminophen (*Crx) 10-325 Mg Tablet PO 1 tab BID KATTY Administration Perflutren Lipid Microsphere 0 ml 03/03/24 13:26 Perflutren Lipid Microspheres 1.5 Ml Vial Diluted To 10 Ml Total Volume IV PUSH 03/06/24 13:26 ONCE PRN adequate visualization Protocol Rivaroxaban 20 mg 03/03/24 17:00 03/04/24 16:51 Rivaroxaban 20 Mg Tablet PO 20 mg DAILY@1700 KATTY Administration Sacubitril/Valsartan
[2024-03-05] MEDS: METOPROLOL SUCCINATE EXT REL 100 MG TABCR PO (13:13)
[2024-03-05] MEDS: RIVAROXABAN 20 MG TABLET PO (16:45)
[2024-03-06] VITALS (17 sets, daily range): BP systolic 95–152; BP diastolic 62–98; PULSE 51–142; RESP 16–20; TEMP 36.4–36.7; O2SAT 96–99
--- NOTE | 2024-03-06 | ECHO_ITS ---
Patient Info Name: Mrako Lyons Age: 73 years : 1950 Gender: Male Ht: 67 in Wt: 190 lbs BSA: 2.04 m2 Heart Rhythm: Atrial Fibrillation Exam Date: 03/06/2024 10:48 AM Exam Location: Echo Lab Patient Status: Inpatient Admit Date: 03/03/2024 Staff Ordering Physician: Aura Barboza Patrol Agent: RON Attending Provider: Olga Carrillo MD Referring Physician: Tamra FLORIAN; Exam Type: CA echo transesophageal Study Info Indications - cv Complete two-dimensional, color flow and Doppler transesophageal study is performed. Summary 1. Esophageal ECHO done prior to cardioversion demonstrating no evidence of left atrial thrombus. 2. Severe left ventricular systolic dysfunction. 3. Moderate MR. 4. Atrial fib. Left Ventricle Left ventricular chamber dimension is moderately enlarged. Left ventricular systolic function is severely reduced with an ejection fraction by Biplane Method of Discs of Empty. Right Ventricle Right ventricular chamber dimension is normal. Right ventricular systolic function is reduced. Left Atria Left atrial chamber dimension is moderately enlarged. Right Atria Right atrial chamber dimension is mildly enlarged. Atrial Appendage There is no thrombus visualized in the left atrial appendage. Aortic Valve The aortic valve is normal. Pulmonic Valve The pulmonic valve is not well visualized. Mitral Valve The mitral valve has normal leaflets. There is moderate mitral valve regurgitation. Pericardium/Pleural The pericardium appears normal. Inferior Vena Cava Not well visualized inferior vena cava with Empty collapse upon inspiration consistent with Empty right atrial pressure, Empty. Aorta The aortic root size at the sinus of Valsalva is not well visualized. Report Signatures
[2024-03-06 05:56] LABS: Basophils Absolute Auto 0.1 K/mm3 (0.0-0.1); Basophils Percent Auto 1.1 % (0.2-1.2); Eosinophils Absolute Auto 0.1 K/mm3 (0-0.3); Eosinophils Percent Auto 2.4 % (0-4.4); Hematocrit 53.8 % (42.0-52.0); Hemoglobin 18.2 g/dL (14.0-18.0); Immature Granulocyte Absolute 0.02 K/mm3 (0.00-0.031); Immature Granulocyte Percent A 0.4 % (0-0.5); Immature Platelet Fraction Pct 6.2 % (0.9-11.2); Lymphocytes Absolute Auto 1.23 K/mm3 (0.9-3.2); Lymphocytes Percent Auto 26.5 % (18.3-44.2); Mean Corpuscular HGB Conc 33.8 g/dl (32-36); Mean Corpuscular Hemoglobin 29.8 pg (26-34); Mean Corpuscular Volume 88.2 fl (80-100); Mean Platelet Volume 9.8 fl (7.4-10.4); Monocytes Absolute Auto 0.4 K/mm3 (0.1-0.6); Neutrophils Absolute Auto 2.8 K/mm3 (1.3-6.7); Neutrophils Percent Auto 60.6 % (45.5-73.1); Platelet Count Result 140 k/mm3 (150-375); Red Cell Distribution Width 17.7 % (11.5-14.5); White Blood Count 4.7 K/mm3 (4.5-10.0)
[2024-03-06 06:12] LABS: Alanine Aminotransferase 37 U/L (6-50); Albumin Level 4.5 g/dL (3.5-5.1); Alkaline Phosphatase 55 U/L (38-126); Anion Gap 7 mmol/L (4-12); Aspartate Amino Transferase 34 U/L (17-59); Bilirubin,Total 1.1 mg/dL (0.2-1.3); Blood Urea Nitrogen 14 mg/dL (9-20); Calcium 9.9 mg/dL (8.4-10.2); Carbon Dioxide 26 mmol/L (22-30); Chloride 105 mmol/L (98-107); Estimated CRCL calculation 86 ml/min; Estimated Glomerular Filt Rate > 60; Glucose 111 mg/dL (65-110); Sodium 138 mmol/L (137-145)
--- NOTE | 2024-03-06 09:15 | PM.PNCARD ---
Progress Note: A&P Assessment and Plan (1) Atrial fibrillation with rapid ventricular response: Code(s): I48.91 - Unspecified atrial fibrillation Status: Acute (2) Cardiomyopathy: Code(s): I42.9 - Cardiomyopathy, unspecified Status: Acute Plan continue current guideline directed medical therapy for his cardiomyopathy and AFib. The patient is having a difficult time making a decision whether he would desire /choose EDWIN cardioversion at this time verses dealing this for 4-6 weeks to ensure adequate anticoagulation. Will come back and see him again later today to see what he decides regarding this. Indicated to the patient that the safest option of course is to cardiovert him after he has been anticoagulated for 4-6 weeks. He is used to being very active and is not happy about the prospect of being limited regarding his activities for that long. Gonzalez Santizo MD [facility] Subjective Date/time seen: Date of service:03/06/24 09:15 Interval history: no acute events Tele: AF rate controlled most of time and intermittently > 140 with activity 03/06/2024: Patient is resting comfortably in bed heart rate in the 90s at rest. He does accelerate with modest activity. No symptomatic heart failure at this time. Long conversation with the patient and his about the strategy of EDWIN/cardioversion today verses delaying that procedure until he has been anticoagulated for 4-6 weeks. Exam Const: General: comfortable, no acute distress, alert and awake Orientation/consciousness: patient oriented x3 Other: Able to lie flat HENMT: Head: normal to inspection Eyes: General: appearance normal, both eyes and all related structures Pupils: Equal, round and reactive pupils present Neck: Neck: normal visual inspection, supple and no JVD Carotids: normal carotid upstroke Resp: Effort & Inspection: normal respiratory effort Auscultation: clear to auscultation bilaterally, rales bilateral (basal) and lung sounds not diminished Other: No chest wall tenderness Cardio: Rate: regular rate and tachycardic Rhythm: regular rhythm and abnormal rhythm irregularly irregular Heart sounds: S1 normal heart sound present, S2 normal heart sound present, no gallops, no murmurs and no rubs GI: Auscultation: normal bowel sounds Skin: General skin exam: normal color, rashes and/or lesions noted and no erythema Other: Warm Neuro: General: patient oriented x3 Cranial nerves: Yes Equal, round and reactive pupils present Extrem: General: normal to inspection Psych: Appearance: grossly normal Mental Status: mental status grossly normal Objective Data Vital Signs Vital Signs: Vital Signs - 24 hr 03/05/24 12:00 03/05/24 10:00 03/05/24 13:12 Temperature 36.2 C L Pulse Rate 126 H 97 Respiratory Rate 18 Blood Pressure 103/67 Pulse Oximetry 94 95 Oxygen Delivery Room Air Oxygen Flow Rate 03/05/24 13:13 03/05/24 16:00 03/05/24 20:13 Temperature 37.0 C Pulse Rate 98 85 84 Respiratory Rate 22 H Blood Pressure 107/63 Pulse Oximetry 98 Oxygen Delivery Oxygen Flow Rate 03/05/24 20:00 03/05/24 20:00 03/06/24 00:00 Temperature Pulse Rate 107 H 107 H 86 Respiratory Rate Blood Pressure Pulse Oximetry 98 Oxygen Delivery Nasal Cannula Oxygen Flow Rate 2 03/06/24 04:00 03/06/24 05:23 03/06/24 08:00 Temperature 36.4 C L Pulse Rate 86 51 L 90 Respiratory Rate 18 Blood Pressure 115/88 Pulse Oximetry 98 Oxygen Delivery Oxygen Flow Rate Intake/Output Intake/Output: Intake & Output 03/03/24 03/04/24 03/05/24 03/06/24 23:59 23:59 23:59 23:59 Intake Total 1370 880 360 0 Output Total 1 Balance 1370 880 360 -1 Meds/Results Medications: Active Medications Generic Name Dose Route Start Last Admin Trade Name Freq PRN Reason Stop Dose Admin Alprazolam 0.5 mg 03/03/24 18:05 03/05/24 16:45 Alprazolam (
[2024-03-06] MEDS: FINASTERIDE 5 MG TABLET PO (09:53)
[2024-03-06] MEDS: ALPRAZolam (*CRX) 0.5 MG TABLET PO (09:53)
[2024-03-06] MEDS: SACUBITRIL/VALSARTAN 24-26 MG TABLET 1 TAB PO ×2 (09:53→20:39)
[2024-03-06] MEDS: SPIRONOLACTONE 12.5 MG TABLET PO (09:53)
[2024-03-06] MEDS: oxyCODONE/ACETAMINOPHEN (*CRX) 10-325 MG TABLET 1 TAB PO (09:53)
[2024-03-06] MEDS: FUROSEMIDE 40 MG TABLET PO (09:53)
[2024-03-06] MEDS: METOPROLOL SUCCINATE EXT REL 100 MG TABCR PO (09:53)
--- NOTE | 2024-03-06 10:00 | ECG_ITS ---
SEE SCANNED COPY FOR CONFIRMED REPORT. MTDD
--- NOTE | 2024-03-06 10:36 | PC.NURSE ---
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
--- NOTE | 2024-03-06 10:57 | WPDMODSED ---
Moderate Sedation Note-Pt Data Patient Data Diagnosis: atrial fibrillation cardiomyopathy Present Complaint: this is a 73-year-old man who presented to the hospital several days ago with complaints of dyspnea was found to have atrial fibrillation felt to be of about 3-4 weeks in duration also found to have significant left ventricular systolic dysfunction. An attempt at ARIEL/ cardioversion is now being performed to consider restoring sinus rhythm earlier Procedure to be performed/Plan: ariel/cardioversion Allergies Allergy/AdvReac Type Severity Reaction Status Date / Time No Known Allergies Allergy Verified 03/03/24 10:49 Home Medications Medication Instructions Recorded Confirmed Type alprazolam 0.5 mg tablet 0.5 mg PO TID 03/03/24 03/03/24 History finasteride 5 mg tablet 5 mg PO DAILY 03/03/24 03/03/24 History oxycodone-acetaminophen 10 mg-325 1 tablet PO BID 03/03/24 03/03/24 History mg tablet Current Medications: Active Medications Alprazolam (Alprazolam (*Crx) 0.5 Mg Tablet) 0.5 mg PO TID [facility] Last Admin: 03/06/24 09:53 Dose: 0.5 mg Finasteride (Finasteride 5 Mg Tablet) 5 mg PO DAILY [facility] Last Admin: 03/06/24 09:53 Dose: 5 mg Furosemide (Furosemide 40 Mg Tablet) 40 mg PO DAILY [facility] Last Admin: 03/06/24 09:53 Dose: 40 mg Metoprolol Succinate (Metoprolol Succinate Ext Rel 100 Mg Tabcr) 100 mg PO QAM [facility] Last Admin: 03/06/24 09:53 Dose: 100 mg Oxycodone/Acetaminophen (Oxycodone/Acetaminophen (*Crx) 10-325 Mg Tablet) 1 tab PO BID [facility] Last Admin: 03/06/24 09:53 Dose: 1 tab Perflutren Lipid Microsphere (Perflutren Lipid Microspheres 1.5 Ml Vial Diluted To 10 Ml Total Volume) 0 ml IV PUSH ONCE PRN; Protocol PRN Reason: adequate visualization Stop: 03/06/24 13:26 Rivaroxaban (Rivaroxaban 20 Mg Tablet) 20 mg PO DAILY@1700 [facility] Last Admin: 03/05/24 16:45 Dose: 20 mg Sacubitril/Valsartan (Sacubitril/Valsartan 24-26 Mg Tablet) 1 tab PO Q12HR [facility] Last Admin: 03/06/24 09:53 Dose: 1 tab Spironolactone (Spironolactone 12.5 Mg Tablet) 12.5 mg PO QAM [facility] Last Admin: 03/06/24 09:53 Dose: 12.5 mg Sedation/Anesthesia: No previous sedation/anesthesia problems (including family history). [facility] Past Medical History Medical History (Updated 03/05/24 @ 08:25 by Maria Eugenia Cruz APRN) Anxiety Cataracts, bilateral Chronic pain DDD (degenerative disc disease) Eczema Kidney stones Skin cancer Surgical History Surgical History History of hernia repair History of spinal surgery Social History Social History Smoking packs per day: 0.25 Smoking cigarettes per day: 5.0 Years smoked: 4 Smoking pack-years: 1.00 Smoking status: Light tobacco smoker Tobacco type: cigarettes Second hand tobacco smoke exposure: Yes Alcohol intake: current Drinks per week: 12 Substance use: never Other substance usage details: 12 beers per week Do You Feel Safe in your Home?: Yes Lack of Transportation: No Lack of Food: Never True Current Housing: I Have Housing Concerned About Future Housing: No Difficulty Paying Gas/Electric Bills: No Difficulty Paying for Meds: No Currently Unemployed: No Education: Associate Degree Difficulty w/ Childcare or Family Care: No Spiritual care concerns: No Mod Sed Physical Exam Physical Exam Pre Procedural Exam: Normal: Appearance, Neck, Throat, Airway, Lungs, Heart Rate, Neuro Exam and Extremities and Variation: Heart Size ( PMI laterally displaced) and Heart Rhythm ( irregularly irregular) Hours since solid foods: 12 Hours since liquid intake: 12 Mallampati Classification: class II Internal Medicine - PN: Obj Da Vital Signs Vital Signs: Vital Signs - 24 hr 03/05/24 12:00 03/05/24 13:12 03/05/24 13:13 Temperature 36.2 C L Pulse Rate 126 H 97 98 Respiratory Rate 18 Blood Pressure 103/6
--- NOTE | 2024-03-06 11:21 | WPDCARDPROC ---
Cardiac Cath Procedure Note Date of procedure:: 03/06/24 Performing physician:: Gonzalez Santizo MD Indication:: Recently diagnosed atrial fibrillation Newly diagnosed cardiomyopathy Brief clinical history:: This is a 73-year-old man who presented to the hospital several days ago with shortness of breath he was found to be in AF with RVR. He was also found by echo to have poor left ventricular systolic function. He has been placed on guideline directed medical therapy. An attempt at restoring sinus rhythm during this admission has been recommended and is scheduled for this morning. Procedure Procedure performed:: Too/cardioversion Sedation/Medication given:: Intravenous propofol in aliquots total dosage of 60 mg Estimated blood loss:: 0 Procedure note:: Patient was brought to the cardiac photographic laboratory technician holding area for sedation he was in the supine position with defibrillator patches in the AP position defibrillator was set at 200 joule output synchronized mode. He was then given 40 mg of IV propofol which provided good sedation for TOO. The TOO probe was advanced into the hypopharynx and into the esophagus easily with the left atrium was visualized in detail. There was no visible clot in the left atrium or the left atrial appendage. The TOO probe was then removed. He was given an additional 20 mg of propofol and then cardioverted with 200 joules in synchronized fashion restoring normal sinus rhythm. Findings:: As above Conclusion:: Successful too/cardioversion terminating atrial fib, restoring sinus rhythm using 200 joules x1 shock after TOO demonstrated no evidence of thrombus in the left atrial appendage Gonzalez Santizo MD [facility]
--- NOTE | 2024-03-06 11:50 | PC.NURSE ---
Patient returned from label drier report received from Aruna BYRNE
[2024-03-06] MEDS: AMIODARONE HCL 200 MG TABLET 400 MG PO (12:03)
--- NOTE | 2024-03-06 16:31 | PM.IMPN ---
Progress Note: A&P Assessment and Plan (1) Atrial fibrillation with rapid ventricular response: Code(s): I48.91 - Unspecified atrial fibrillation Status: Acute Assessment and Plan: Cardioverted today to NSR Continue Amiodarone and Xarelto (2) Hypertension: Code(s): I10 - Essential (primary) hypertension Status: Acute Assessment and Plan: continue home medications (3) Cardiomyopathy: Code(s): I42.9 - Cardiomyopathy, unspecified Status: Acute Assessment and Plan: Cardiology following Continue Entresto, Metoprolol, Spironolactone, Lasix (4) Acute on chronic systolic congestive heart failure: Code(s): I50.23 - Acute on chronic systolic (congestive) heart failure Status: Acute Assessment and Plan: see above (5) Hypoxia: Code(s): R09.02 - Hypoxemia Status: Acute Assessment and Plan: hypoxia at night on room air with desaturation less than 88% Will do Nocturnal apnealink with oximetry only to determine if there is a nocturnal O2 need Time Spent With Patient Time with patient: 25 - 35 minutes Subjective Date/time seen: 03/06/24 16:31 Interval history: Patient denies any new complaints today. Cardiology took patient to the solar lab technician today for cardioversion which was successful in terminating the AFib. He is now in a normal sinus rhythm with rate in the 70s to 80s. He states he feels much better. Plan is to do a nocturnal oximetry to assess for nocturnal O2 needs. Plan is to discharge him in the morning following this test. Review of Systems Review of Systems: All systems reviewed & are unremarkable except as noted in HPI and below Constitutional: Constitutional: Reports as per HPI and Reports no additional constitutional complaints Eyes: Eyes: Reports as per HPI and Reports no additional eye complaints ENT: Reports system reviewed and no additional complaints, except as documented and Reports as per HPI Cardiovascular: Cardiovascular: Reports as per HPI and Reports no additional cardiovascular complaints Respiratory: Respiratory: Reports as per HPI and Reports no additional respiratory complaints Gastrointestinal: Gastrointestinal: Reports as per HPI and Reports no additional gastrointestinal complaints Genitourinary: Genitourinary: Reports no additional male genitourinary complaints and Reports as per HPI Musculoskeletal: Musculoskeletal: Reports no additional musculoskeletal complaints and Reports as per HPI Integumentary/Breasts: Skin/Breast: Reports system reviewed and no additional complaints, except as docu and Reports as per HPI Neurologic: Reports system reviewed and no additional complaints, except as documented and Reports as per HPI Psychiatric: Psychiatric: Reports no additional psychiatric complaints and Reports as per HPI Exam Narrative: General: In no acute distress, well nourished Head: atraumatic, no encephalopathy Eyes: EOMI, PERRLA, sclera clear ENT: moist mucous membranes, nasal passages clear Neck: supple, no JVD, no adenopathy, trachea midline Cardiac: Normal S1 and S2. RRR, No murmur, gallops or friction rubs, peripheral pulses intact. Respiratory: Lungs clear to auscultation, no adventitious lung sounds, currently on room air Gastrointestinal: soft, non-distended, non-tender, normoactive bowel sounds. : voiding without difficulty. Extremities: moves all extremities well, no edema, good ROM, strength 5/5 Skin: clean, dry, intact. No wounds or lesions. Neuro: Alert and oriented x4, cranial nerves intact, no neuro deficits. Psych: normal mood, normal affect, interactive, agitated today Objective Data Vital Signs Vital Signs: Vital Signs - 24 hr 03/05/24 20:13 03/05/24 20:00 03/05/24 20:00 Temperature 98.6 F Pulse Rate 84 107 H 107 H Respiratory Rate 22 H Blood Pressure 107/63 Pulse Oximetry 98 98 Oxygen Delivery Nasal Cannula Oxygen Flow Rate 2
[2024-03-06] MEDS: RIVAROXABAN 20 MG TABLET PO (17:50)
[2024-03-07 00:01] VITALS: PULSE 63
[2024-03-07 00:08] VITALS: O2SAT 98
[2024-03-07 04:00] VITALS: BP 110/78; PULSE 64; RESP 22; TEMP 36.7; O2SAT 98
[2024-03-07 04:03] VITALS: PULSE 63
[2024-03-07 05:50] LABS: Basophils Percent Auto 0.8 % (0.2-1.2); Eosinophils Absolute Auto 0.1 K/mm3 (0-0.3); Eosinophils Percent Auto 1.8 % (0-4.4); Hematocrit 49.2 % (42.0-52.0); Hemoglobin 16.6 g/dL (14.0-18.0); Immature Granulocyte Absolute 0.04 K/mm3 (0.00-0.031); Immature Granulocyte Percent A 0.8 % (0-0.5); Lymphocytes Absolute Auto 1.37 K/mm3 (0.9-3.2); Lymphocytes Percent Auto 26.9 % (18.3-44.2); Mean Corpuscular HGB Conc 33.7 g/dl (32-36); Mean Corpuscular Hemoglobin 29.8 pg (26-34); Mean Corpuscular Volume 88.3 fl (80-100); Mean Platelet Volume 9.7 fl (7.4-10.4); Monocytes Absolute Auto 0.5 K/mm3 (0.1-0.6); Neutrophils Absolute Auto 3.1 K/mm3 (1.3-6.7); Neutrophils Percent Auto 60.7 % (45.5-73.1); Platelet Count Result 141 k/mm3 (150-375); Red Blood Count 5.57 M/mm3 (4.6-6.20); Red Cell Distribution Width 17.2 % (11.5-14.5); White Blood Count 5.1 K/mm3 (4.5-10.0)
[2024-03-07 05:55] LABS: Alanine Aminotransferase 33 U/L (6-50); Albumin Level 4.2 g/dL (3.5-5.1); Alkaline Phosphatase 50 U/L (38-126); Anion Gap 4 mmol/L (4-12); Aspartate Amino Transferase 32 U/L (17-59); Bilirubin,Total 1.1 mg/dL (0.2-1.3); Blood Urea Nitrogen 18 mg/dL (9-20); Calcium 9.6 mg/dL (8.4-10.2); Carbon Dioxide 27 mmol/L (22-30); Chloride 105 mmol/L (98-107); Estimated CRCL calculation 86 ml/min; Estimated Glomerular Filt Rate > 60; Glucose 106 mg/dL (65-110); Potassium 3.9 mmol/L (3.4-5.0); Sodium 136 mmol/L (137-145)
[2024-03-07 08:00] VITALS: PULSE 60
--- NOTE | 2024-03-07 08:48 | PM.DS ---
DS: Admitting Diagnosis Discharge Date 03/07/24 Admitting Diagnosis AFib with RVR Hypertension DS: Discharge Diagnosis Discharge Diagnosis (1) Atrial fibrillation with rapid ventricular response: Code(s): I48.91 - Unspecified atrial fibrillation Status: Acute (2) Hypertension: Code(s): I10 - Essential (primary) hypertension Status: Acute (3) Cardiomyopathy: Code(s): I42.9 - Cardiomyopathy, unspecified Status: Acute (4) Acute on chronic systolic congestive heart failure: Code(s): I50.23 - Acute on chronic systolic (congestive) heart failure Status: Acute (5) Hypoxia: Code(s): R09.02 - Hypoxemia Status: Acute DS: Summary Hospital Course Reason for hospitalization: AFib with RVR Hypertension Hospital Course: Admission: MEDICAL CHART This is a 73-year-old male who presented to the hospital on 03/03/2024 with generalized weakness, shortness of breath, and fatigue which has been going on for the past 2 weeks.Patient also was monitoring his blood pressures at home which elevated to 140/106 without a history of hypertension or heart disease.? Workup in the hospital included a chest x-ray which was negative for any cardiopulmonary disease, shown cardiomegaly.? Initial labs showed a normal white blood cell count of 5.1, D-dimer 0.44, calcium 10.5, troponin negative x2, BNP 803, TSH 0.338, free T4 1.05, total T3 1.41.? A UA was obtained and was negative.? EKG shows AFib RVR with a rate of 121.? Patient was given 2 g of Mag, 1 L of LR, and metoprolol while in the ED.? Cardiology was consulted. On examination today patient is alert and oriented x3, lying in the bed.? Family is at the bedside.? Patient denies any fever, chills, nausea, vomiting, diarrhea, abdominal pain, chest pain, shortness a breath, lightheadedness, dizziness, headache.? Labs today are unremarkable.? His AFib is rate controlled in the 70s to 80s.? Nursing reports whenever he gets up his heart rate goes to the 140s 150s and sustains.? He also has had small runs of V-tach and multiple PVCs.? His magnesium is 2.1, potassium was 4.2.? He was started on metoprolol 25 mg b.i.d. and Xarelto 20 mg daily.? Cardiology following.? He will likely need adjustments to his metoprolol.? They did talk to him about cardioversion on an outpatient basis. 03/05: ASSUMED CARE HR 100's cardiology is adjusting medications as BP tolerates 109/88.? Patient denied SP but continues to have dyspnea and activity intolerance HR as high as 160's with activity.? Plan to adjust medications per cardiology recommendations and keep NPO for possible cardioversion in the am. 03/06: Patient denies any new complaints today.? Cardiology took patient to the cathode builder today for cardioversion which was successful in terminating the AFib.? He is now in a normal sinus rhythm with rate in the 70s to 80s.? He states he feels much better.? Plan is to do a nocturnal oximetry to assess for nocturnal O2 needs.? Plan is to discharge him in the morning following this test. 03/07: No events overnight. Patient had an apnea link done last night however this was not long enough to have a good read. I spoke with the respiratory therapist department operations manager who will work on getting him an auto Pap for use at home. This is actually going to be better for him as he was shown to have obstructive sleep apnea on his 1st and 2nd ApneaLink. His AHI was 25 with an NAKUL of 28.1 on his 1st ApneaLink. I also spoke with Cardiology about his low normal blood pressures and heart rate in the 60s to 70s. They recommend discontinuing the metoprolol in keeping the amiodarone for rate control. Patient is stable for discharge at this time. He will need to follow up with his primary care doctor in 1 week. He will also follow-up with Cardiology as already scheduled. Final diagnosis: AFib with RVR, obstructive sleep apnea Status at Discharge Cognitive/behavioral status at discharge: Alert oriented x4 Functional s
[2024-03-07 09:25] VITALS: PULSE 85
[2024-03-07] MEDS: SACUBITRIL/VALSARTAN 24-26 MG TABLET 1 TAB PO (09:25)
[2024-03-07] MEDS: FUROSEMIDE 40 MG TABLET PO (09:25)
[2024-03-07] MEDS: oxyCODONE/ACETAMINOPHEN (*CRX) 10-325 MG TABLET 1 TAB PO (09:25)
[2024-03-07] MEDS: ALPRAZolam (*CRX) 0.5 MG TABLET PO (09:25)
[2024-03-07] MEDS: AMIODARONE HCL 200 MG TABLET 400 MG PO (09:25)
[2024-03-07] MEDS: SPIRONOLACTONE 12.5 MG TABLET PO (09:25)
[2024-03-07] MEDS: FINASTERIDE 5 MG TABLET PO (09:26)
--- NOTE | 2024-03-07 09:32 | PCRCNOTE ---
Home auto-pap device arranged with [employer] [place]. .
== END 2024-03-07 10:47 | disposition home or self-care (01) | DRG 308 ==
LOC: ANHED 13:27 → ANH2MED 15:06
PROVIDERS: Nurse Practitioner Family; Physician Assistant; Specialist; Student in an Organized Health Care Education/Training Program; Admitting Provider General Practice; Emergency Provider Emergency Medicine; PCP Family Medicine; Visit Provider Nurse Practitioner Acute Care
PROC: 5A2204Z Restoration of Cardiac Rhythm, Single (ICD-10-PCS; CPT 93312; principal; 2024-03-06 11:00)
PROC: 5A2204Z Restoration of Cardiac Rhythm, Single (ICD-10-PCS; 2024-03-06 11:00)
DX: I48.91 Unspecified atrial fibrillation (principal); I50.23 Acute on chronic systolic (congestive) heart failure; I11.0 Hypertensive heart disease with heart failure; I42.9 Cardiomyopathy, unspecified; R09.02 Hypoxemia; G47.33 Obstructive sleep apnea (adult) (pediatric); G89.29 Other chronic pain; F41.9 Anxiety disorder, unspecified; Z87.442 Personal history of urinary calculi
CPT/HCPCS: 36415; 71045; 80048; 80053; 80061; 81003; 83735; 83880; 84100; 84439; 84443; 84480; 84484; 85025; 85027; 85055; 85380; 85610; 85730; 92960; 93005; 93306; 93312; 93320; 93325; 94762; 96365; 96366; 96375; 99285; A9270; J2704; J3475; J7040; J7120

== ENCOUNTER 2024-05-31 08:50 | Outpatient (CLI) | payer MEDICARE, OTHER, SELFPAY ==
[2024-05-31 09:20] LABS: Anion Gap 7 mmol/L (4-12); Blood Urea Nitrogen 10 mg/dL (9-20); Calcium 10.4 mg/dL (8.4-10.2); Carbon Dioxide 31 mmol/L (22-30); Chloride 100 mmol/L (98-107); Estimated Glomerular Filt Rate > 60; Glucose 112 mg/dL (65-110); Potassium 4.1 mmol/L (3.4-5.0); Sodium 138 mmol/L (137-145)
== END 2024-05-31 08:51 | disposition home or self-care (01) ==
LOC: ANHLAB 08:52
PROVIDERS: PCP Nurse Practitioner Family; Visit Provider Nurse Practitioner
DX: I42.0 Dilated cardiomyopathy (principal)
CPT/HCPCS: 36415; 80048

== ENCOUNTER 2024-07-18 10:13 | Outpatient (CLI) | payer MEDICARE, OTHER, SELFPAY ==
--- NOTE | 2024-07-18 11:00 | NEURO_ITS ---
Impression: # Complains of left hand numbness and pain in 5th finger. # Left ulnar neuropathy around the elbow. # Left severe Carpal Tunnel Syndrome. # Needle/EMG exam not requested. Nerve Conduction Studies Anti Sensory Summary Table Stim Site NR Peak (ms) P-T Amp (?V) Site1 Site2 Delta-P (ms) Dist (cm) Nehemiah (m/s) Left Median Anti Sensory (2-3nd Digit) Wrist 5.3 28.7 Wrist 2-3nd Digit 5.3 14.0 26 Wrist 5.7 18.0 Wrist 2-3nd Digit 5.3 14.0 26 Left Radial Anti Sensory (Base 1st Digit) Wrist 2.5 22.4 Wrist Base 1st Digit 2.5 0.0 Left Ulnar Anti Sensory (5th Digit) NO RESPONSE Wrist NR Wrist 5th Digit 14.0 Motor Summary Table Stim Site NR Onset (ms) O-P Amp (mV) Site1 Site2 Delta-0 (ms) Dist (cm) Nehemiah (m/s) Left Median Motor (Abd Poll Brev) Wrist 6.3 2.2 Elbow Wrist 6.2 28.0 45 Elbow 12.5 2.7 Left Ulnar Motor (Abd Dig Minimi) Wrist 4.5 0.6 A Elbow Wrist 7.9 30.0 38 A Elbow 12.4 0.2 B Elbow Wrist 4.6 20.0 43 B Elbow 9.1 0.1 F Wave Studies NR F-Lat (ms) L-R F-Lat (ms) Left Median (Mrkrs) (Abd Poll Brev) 30.67 Left Ulnar (Mrkrs) (Abd Dig Min) 29.06 MTDD
== END 2024-07-18 10:14 | disposition home or self-care (01) ==
LOC: ANHNEURO 10:15
PROVIDERS: PCP Nurse Practitioner Family; Visit Provider Family Medicine Adolescent Medicine
DX: G56.20 Lesion of ulnar nerve, unspecified upper limb (principal); G56.02 Carpal tunnel syndrome, left upper limb; G56.22 Lesion of ulnar nerve, left upper limb
CPT/HCPCS: 95909

== ENCOUNTER 2025-03-03 08:55 | Outpatient (CLI) | payer MEDICARE, OTHER, SELFPAY ==
--- NOTE | ~2025-03-03 | XR_ITS ---
XR shoulder RT min 2V Ordering provider: Mariely Gold APRN History: . M25.511 - Pain in right shoulder . Comparison: None. FINDINGS: BONES: No acute fracture or dislocation. Degenerative changes seen in the area of the greater tuberosity which may indicate rotator cuff disea se. JOINT SPACES: The acromioclavicular joint shows moderate osteoarthritic changes.. The glenohumeral juno int shows mild osteoarthritic changes. Degenerative changes of the cervical and thoracic spine are also noted. SOFT TISSUES: Normal. IMPRESSION: No acute osseous abnormality right shoulder. Osteoarthritic changes of the acromioclavicular and glenohumeral joints. Reviewed, dictated and finalized at location A.
--- OUTSIDE RECORDS SUMMARY | 2025-03-03 09:00 | XMS_ITS | Encounter Summary ---
Author Organization [facility] Address [address] [place] [address] Care Team Providers Care Outbound Telemarketing Representative Name Role Phone Anuj Richter MD Primary Care Provider [phone] Pérez Levy NP Primary Care Provider [phone] Mariely Gold NP Primary Care Provider [phone] Encounter Details Date Type Department Care Team (Late st Contact Info) Description 03/06/2024 Orders Only [facility] Health Information Management [address] [place] [id number] Scanning, Provider Social History Tobacco Use Types Packs/Day Years Used Date Smoking Tobacco: Former Smokeless Tobacco: Former AUDIT-C Answer Date Recorded Q1: How often do you have a drink containing alcohol? 4 or more times a week 07/02/2021 Q2: How many drinks containi ng alcohol do you have on a typical day when you are drinking? 1 or 2 Q3: How often do you have si x or more drinks on one occasion? 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 Gender Identity Not on file Sexual Orientation Not on file documented as of this encounter Plan of Treatment Not on file documented as of this encounter Procedures Procedure Name Priority Date/Time Associated Diagnosis Comments CARDIOLOGY DOCUMENT SCAN 03/06/2024 documented in this encounter Results * Cardiology Document Scan (03/06/2024) Anatomical Region Laterality Modality Other us Provider Scanning CV CARDIAC SERVICES PROCEDURES Final Result documented in this encounter Visit Diagnoses Not on filedocumented in this encounter Care Teams Outbound Telemarketing Representative Relationship Specialty Start Date End Date Anuj Richter MD PCP - General 02/10/17 04/04/24 Pérez Levy NP [address] [place] [address] PCP - General Family Medicine 04/05/24 08/30/24 Mariely Gold NP [address] [place] [address] [place] [address] PCP - General Family Practice 08/31/24 documented as of this encounter
--- OUTSIDE RECORDS SUMMARY | 2025-03-03 09:00 | XMS_ITS | Clinical Summary ---
Author Organization [facility] Address [address] [place] [address] Phone Care Team Providers Care Mechanical Oxidizer Name Role Phone Anuj Richter MD Primary Care Provider [phone] Allergies No known active allergies Medications ALPRAZolam (XANAX) 0.5 mg Oral tablet Take 0.5 mg by mouth 2 times daily as needed. 06/12/2011 Active zolpidem (AMBIEN) 10 mg Oral tablet Take 10 mg by mouth nightly as needed. Active pantoprazole (PROTONIX) 40 mg Oral TbEC Take 40 mg by mouth daily. Active DULoxetine (CYMBALTA) 30 mg Oral CpDR Take 60 mg by mouth daily. Active valsartan-[place] chlorothiazide (DIOVAN HCT) 320-25 mg Oral tablet Take 1 Tab by mouth daily. Active multivitamin, stress formula (STRESSTABS) Oral Tab Take 1 Tab by mouth daily. Active ferrous sulfate (FEOSOL) 325 mg (65 mg iron) Oral tablet Take 1 Tab by mouth daily after breakfast. 30 Tab 0 06/18/2011 Active diazepam (VALIUM) 5 mg Oral tablet Take 1 Tab by mouth every 8 hours as needed for Anxiety. 10 Tab 0 09/01/2011 Active Active Problems Problem Noted Date Diagnosed Date DJD (degenerative joint disease) of hip 06/16/20 11 Encounters Date Type Department Care Team Description 01/30/2025 External Device Data ST[facility] ABSTRACTION Provider, Abstract 01/23/2025 External Device Data [facility] ABSTRACTION Provider, Abstract 01/03/2025 External Device Data [facility] ABSTRACTION Provider, Abstract 12/25/2024 External Device Data [facility] ABSTRACTION Provider, Abstract 12/12/2024 External Device Data [facility] ABSTRACTION Provider, Abstract from Last 3 Months Social History Tobacco Use Types Packs/Day Years Used Date Smoking Tobacco: Former Cigarettes Q uit: 06/12/1981 Alcohol Use Standard Drinks/Week Comments Yes 3.3 (1 standard drink = 0.6 oz p ure alcohol) Sex and Gender Information Value Date Recorded Sex Assigned at Not on file Legal Sex Male 3:45 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 Gender Identity Not on file Sexual Orientation Not on file Last Filed Vital Signs Vital Sign Reading Time Taken Comments Blood Pressure 130/81 09/01/2011 9:27 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 Pulse 90 09/01/2011 5:10 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 Temperature 37.1 C (98.7 F) 09/01/2011 5:10 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 Respiratory Rate 16 09/01/2011 5:10 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 Oxygen Saturation 94% 09/01/2011 5:10 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 Inhaled Oxygen Concentration - - Weight 82.7 kg (182 lb 6 oz) 08/27/2011 5:40 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 Height 172.7 cm (5' 8 ) 08/18/2011 10:04 AM CDT Body Mass Index 27.73 08/18/2011 10:04 AM CDT Plan of Treatment Health Maintenance Due Date Last Done Comments DTAP/TDAP/TD VACCINES (1 - Tdap) 1970 COLORECTAL SCREENING 1996 Colorectal Cancer Screening 1996 FIT-DNA Q 3 years 1996 FIT/FOBT Q 1 year 1996 Flex Sig/CT Colonography Q 5 years 1996 PNEUMOCOCCAL VACCINE 50+ YEARS (1 of 1 - PCV) 04/30/20 01 ZOSTER VACCINE (1 of 2) 2001 INFLUENZA VACCINE (#1) 2024 RSV VACCINE (60+ or ) (1 - 1-dose 75+ series) 2026 Medical Devices Implanted Type Area Vice President Integrated Device Identifier Shelf Expiration Date Model / Serial / Lot Log [id number] - Bone [employer] Biologicals - 1 - Infuse Protein Kit [id number] Implanted:Qty: 1 on 08/27/2011 at [facility] Biological N/A: Spine Lumbar [employer]- SOFAMOR DANEK 02/15/2014 [id number] / N/A / [id number] S Log [id number] - Bone & Biologicals - 1 - Infuse Protein Kit Lg [id number] Implanted:Qty: 1 on 08/27/2011 at [facility] Biological Spine Lumbar [employer]- [employer]FAMOR [employer]ANEK 04/17/2013 [id number] / / [id number] N Log [id number] - Bone & Biologicals - 1 - Allgrft Spcr Lmnry Alif 9mm [id number] Implanted:Qty: 1 on 08/27/2011 at [facility] Bone Spine Lumbar MUSC[employer]KELETAL TRANSPLANT FOU 06/06/2014 [id number] / [id number] / Log [id number] - Bone [employer] Biologicals - 1 - Allgrft Spcr Lmnry Alif 11mm [id number] Implanted:Qty: 1 on 08/27/2011 at [facility] Bone N/A: Spine Lumbar MUSCULOSKELETAL TRANSPLANT FOU 08/23/2015 [id number] / [id number] / Log [id number] - Biomet Hip Primary Acetabular Components - 1 - Screw Canc Lopro 6.5x35mm [id number] Implanted:Qty: 1 on 06/16/2011 at [facility] Hip Left: Hip [employer] 01/15/2021 [id number] / / [id number] Log [id number] - Biomet Hip Primary Acetabular Components - 1 - Shell Ringloc Acet 54mm Sz 24 [id number] Implanted:Qty: 1 on 06/16/2011 at [facility] Hip Left: Hip [employer] 04/16/2021 [id number] / / [id number] Log [id number] - Biomet Hip Primary Acetabular Components - 1 - Liner Acet Ringloc 40mm Sz 24 [id number] Implanted:Qty: 1 on 06/16/2011 at [facility] Hip Left: Hip [employer] 03/17/2016 [id number] / / [id number] Description:Epoly liner is n ot part of total hip cap pricing,will be charged separately. Log [id number] - Biomet Hip Primary Femoral Components - 1 - Head Biolox Delta Optn 40mm [id number] Implanted:Qty: 1 on 06/16/2011 at [facility] Hip Left: Hip [employer] 04/16/2021 [id number] / / [id number] Log [id number] - Biomet Hip Primary Femoral Components - 1 - Head Fem Biolox Option Minus 6 [id number] Implanted:Qty: 1 on 06/16/2011 at [facility] Hip Left: Hip [employer] 07/17/2020 [id number] / / [id number] Description:Option sleeve is not part of total hip cap pricing,will be charged separately. Pin Fixation Temp 03.161.057 Implanted:Qty: 2 on 08/27/2011 at [facility] Pin SYNTHES-STRATEC- SPINAL 03.161.05 7 / / Log [id number] - Synthes Spine Antegra System - 1 - Plate Lumbar Antegra 41mm 04.102.141 Implanted:Qty: 1 on 08/27/2011 at [facility] Plate Spine Lumbar SYNTHES-STRATEC- SPINAL 04.102.14 1 / / Description:load 36sterilize d aug Log [id number] - Synthes Spine Antegra System - 1 - Plate Antegra Sacral 1lvl 04.103.137 Implanted:Qty: 1 on 08/27/2011 at [facility] Plate Spine Lumbar SYNTHES-STRATEC- SPINAL 04.103.13 7 / / Description:load 36sterilize d aug Log [id number] - Synthes Spine Antegra System - 1 - Screw Canc Loc 6.5x28mm 04.202.028 Implanted:Qty: 8 on 08/27/2011 at [facility] Screw Spine Lumbar SYNTHES-STRATEC- SPINAL 04.202.02 8 / / Description:load 36sterilize d aug Femur Implanted:Qty: 1 on 06/16/2011 at [facility] Left: Hip [employer] 09/16/2020 [id number] / / [id number] Description:Taperloc complet e primary, standard offset Insurance BCBS BLUE ACCESS/TRUE BLUE PPO Advance Directives For more information, please contact: [phone] * Full Code (Latest Code Status on File) Date Activated Date Inactivated Comments 08/27/2011 7:01 PM 09/01/2011 2:46 PM * Full Code Date Activated Date Inactivated Comments 08/27/2011 6:02 AM 08/27/2011 7:01 PM * Full Code Date Activated Date Inactivated Comments 06/16/2011 5:31 PM 06/18/2011 6:28 PM * Full Code Date Activated Date Inactivated Comments 06/16/2011 12:34 PM 06/16/2011 5:31 PM Care Teams Mechanical Oxidizer Relationship Specialty Start Date End Date Anuj Richter MD PCP - General Family Practice 06/12/11
--- OUTSIDE RECORDS SUMMARY | 2025-03-03 09:00 | XMS_ITS | Data Portability ---
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 Not available 03/09/2024 10:33:54 04/03/2024 04/03/2024 Assessment: Moderate OSAHS, AHI = 20 CSA from oxycodone PLMD Plan: The following were reviewed and explained to the patient: primary care/referral note [facility] home sleep study 03/23/24 AHI = 20, supine AHI = 21 General information on sleep disordered breathing, evaluation of sleep disordered breathing, treatment with PAP therapy, and living with PAP therapy were covered. PSG is medically necessary to determine the management of sleep apnea. We discussed with the patient the impact of weight on: Sleep disordered breathing CHF Hypertension Hepatic steatosis Right inguinal hernia Lumbar spondylosis We discussed with the patient the benefit of PAP therapy on: Sleep disordered breathing Anxiety Elevated right hemidiaphragm Mild KUSHAL Atrial fibrillation CHF Hypertension Educated the patient on sleep hygiene measures. Relaxing rituals to rest easy, understanding foods with positive and negative impact on sleep, creating a peaceful sleep environment, timing of exercise, using herbal sleep aids, and practicing sleep-friendly meditation were covered. To determine how much sleep is needed, the patient will assess where he falls on the spectrum, examine what lifestyle factors such as work schedules and stress are affecting the quality and quantity of sleep. In general, adults need 7-9 hours of sleep. Educated the patient regarding foods that promote sleep. These include but are not limited to cherries, bananas, toast, oatmeal, and warm milk. Educated the patient regarding foods and drinks to avoid before bedtime. These include but are not limited to aged cheese, chocolate, spicy foods, tomato-based sauces, soy, ginseng tea and processed meat. Advocated influenza vaccination annually and pneumonia vaccination ENEDINA. Advocated weight loss through diet and exercise. Patient's ideal body weight according to height and gender is up to 160 lbs. Encouraged patient to adjust caloric intake to maintain/achieve ideal body weight, emphasizing on fruits, vegetables, whole grains, and fat-free or low-fat products. These include lean meats, poultry, fish, beans, eggs, and nuts and foods that are low in saturated fats, trans-fats, cholesterol, salt (sodium), and glycemic index. Stressed the importance of regular exercise up to the patient's capacity limits. In this case, we recommend 20 min daily walking, 2 days a week of resistance training. Patient to monitor BP daily and bring records to PCP for further management. Follow-up: 1 week after titration sleep study [facility] Not available 04/03/2024 10:35:17 04/10/2024 04/10/2024 Assessment: Moderate OSAHS, AHI = 20 CSA from oxycodone/CHF PLMD Plan: The following were reviewed and explained to the patient: [facility] home sleep study 03/23/24 AHI = 20, supine AHI = 21 PAP compliance downloaded and interpreted x 20 minutes. Data reviewed and explained to the patient. Average apnea/hypopnea index (AHI) is 7.4 (central apnea index 3.5) Patient used PAP > 4 hours 39% of the time. PAP is set at 4-15 cmH2O. PAP will be reset at 8-14 cmH2O. Oxygen supplementation: none Increase humidity from 6 to 7. Set tube temperature to [address] ramp on at 8 cmH2O. Keep EPR + 3. Patient is benefiting from PAP therapy. Encouraged patient to maintain PAP use more than 70% of the time. Statement of PAP use and benefits will be sent to the home care store. Patient will place a humidifier in his bedroom as well. He may need BPAP, BPAP S/T or BPAP ASV if central apneas persist. Educated the patient on problems and solutions associated with positive airway pressure (PAP) use. Difficulty tolerating pressure, mask leaks, intolerance of interface, nasal congestion, claustrophobic response, dry mouth, and unintentional mask removal during sleep were covered. Dry mouth is a normal occurrence for people who just start out on PAP therapy because they are not used to air blowing in to the throat to hold open. Dry mouth is exacerbated for people who wear nasal PAP mask and whose jaw drops open during sleep. Not only does this create a much less efficient therapy because of leakage, it also causes dry mouth. There are a couple solutions to help prevent this type of problem. A simple solution would be to wear a chinstrap which essentially holds the jaw in place. A second solution would be a switch to a full face mask which covers both the nose and mouth. Although this is another easy solution, using a full face mask for some could seem claustrophobic or confining. There is no silver bullet solution as no single mask is right for everybody. Sometimes it takes a bit of experimentation to find a PAP mask which best meets the patient's needs as well as fits comfortably. Another tactic is to use a humidifier on your PAP machine. Most new PAP machines have integrated humidifiers. Humidification is narvaez when dealing with symptoms of dry mouth because the humidifier can supply both warm and room temperate air. Even a small amount of humidity in the airflow will help nasal passages to stay hydrated. If a person is using both a full face mask and a PAP machine with a heated humidifier and is still experiencing dry mouth, an ill-fitted PAP mask might be causing the problem. Leakage can be caused by a mask that is to large or small, the wrong style mask, the cushion is degraded or simply because the mask's straps aren't adjusted correctly. If leakage occurs, dry air from the room can leak in while humidification escapes. The result is reduced humidification within the circuit and resulting in dry throat and mouth. Finally, beyond factors involving the PAP machine and mask, dry mouth can also be caused or worsened by dehydration. The general recommendation to during eight 8 oz. glasses of water a day might be too little for many people. When people drink large amounts of coffee or other caffeine beverages, or sweat a lot during the day, making sure to rehydrate is an important part of PAP therapy. Provided the patient with a list of local home care stores where positive airway pressure (PAP) units, accoutrement, and services are available. Home care store selection is based on patient's insurance carrier. Patient will setup an appointment with [facility] for supplies and pressure adjustments. A major predictor of success with use of PAP is follow-up with both the respiratory supplier and the treating physician. The respiratory supplier optimally will follow-up within two weeks after starting use while the treating physician optimally will follow-up within 90 days after starting therapy to assess adherence and effectiveness of treatment. The download results can show the treating physician information about adherence to treatment, residual AHI while on treatment and presence of large mask leakage. This information is especially helpful if the patient has residual sleepiness despite treatment. General information on sleep disordered breathing, evaluation of sleep disordered breathing, treatment with PAP therapy, and living with PAP therapy were covered. We discussed with the patient the impact of weight on: Sleep disordered breathing CHF Hypertension Hepatic steatosis Right inguinal hernia Lumbar spondylosis We discussed with the patient the benefit of PAP therapy on: Sleep disordered breathing Anxiety Elevated right hemidiaphragm Mild KUSHAL Atrial fibrillation CHF Hypertension Educated the patient on sleep hygiene measures. Relaxing rituals to rest easy, understanding foods with positive and negative impact on sleep, creating a peaceful sleep environment, timing of exercise, using herbal sleep aids, and practicing sleep-friendly meditation were covered. To determine how much sleep is needed, the patient will assess where he falls on the spectrum, examine what lifestyle factors such as work schedules and stress are affecting the quality and quantity of sleep. In general, adults need 7-9 hours of sleep. Educated the patient regarding foods that promote sleep. These include but are not limited to cherries, bananas, toast, oatmeal, and warm milk. Educated the patient regarding foods and drinks to avoid before bedtime. These include but are not limited to aged cheese, chocolate, spicy foods, tomato-based sauces, soy, ginseng tea and processed meat. Advocated influenza vaccination annually and pneumonia vaccination ENEDINA. Advocated weight loss through diet and exercise. Patient's ideal body weight according to height and gender is up to 160 lbs. Encouraged patient to adjust caloric intake to maintain/achieve ideal body weight, emphasizing on fruits, vegetables, whole grains, and fat-free or low-fat products. These include lean meats, poultry, fish, beans, eggs, and nuts and foods that are low in saturated fats, trans-fats, cholesterol, salt (sodium), and glycemic index. Stressed the importance of regular exercise up to the patient's capacity limits. In this case, we recommend 20 min daily walking, 2 days a week of resistance training. Patient to monitor BP daily and bring records to PCP for further management. Follow-up: 3 months, June 2024 Not available 04/10/2024 11:49:03 07/11/2024 07/11/2024 Assessment: Moderate OSAHS, AHI = 20 CSA from oxycodone/CHF PLMD Plan: The following were reviewed and explained to the patient: [facility] home sleep study 03/23/24 AHI = 20, supine AHI = 21 PAP compliance downloaded and interpreted x 20 minutes. Data reviewed and explained to the patient. Average apnea/hypopnea index (AHI) is 3.5 (central apnea index 0.6) Patient used PAP > 4 hours 77% of the time. PAP is set at 8-14 cmH2O. PAP will be reset at 9-14 cmH2O. Oxygen supplementation: none Keep humidity at 4. Keep tube temperature to 68 F. Keep ramp start at 8 cmH2O. Keep ramp duration at 20 minutes. Keep EPR + 3 manager business continuity. Patient is benefiting from PAP therapy. Encouraged patient to maintain PAP use more than 70% of the time. Statement of PAP use and benefits will be sent to the home care store. Patient will place a humidifier in his bedroom as well. He may need BPAP, BPAP S/T or BPAP ASV if central apneas are prominent. Educated the patient on problems and solutions associated with positive airway pressure (PAP) use. Difficulty tolerating pressure, mask leaks, intolerance of interface, nasal congestion, claustrophobic response, dry mouth, and unintentional mask removal during sleep were covered. Dry mouth is a normal occurrence for people who just start out on PAP therapy because they are not used to air blowing in to the throat to hold open. Dry mouth is exacerbated for people who wear nasal PAP mask and whose jaw drops open during sleep. Not only does this create a much less efficient therapy because of leakage, it also causes dry mouth. There are a couple solutions to help prevent this type of problem. A simple solution would be to wear a chinstrap which essentially holds the jaw in place. A second solution would be a switch to a full face mask which covers both the nose and mouth. Although this is another easy solution, using a full face mask for some could seem claustrophobic or confining. There is no silver bullet solution as no single mask is right for everybody. Sometimes it takes a bit of experimentation to find a PAP mask which best meets the patient's needs as well as fits comfortably. Another tactic is to use a humidifier on your PAP machine. Most new PAP machines have integrated humidifiers. Humidification is narvaez when dealing with symptoms of dry mouth because the humidifier can supply both warm and room temperate air. Even a small amount of humidity in the airflow will help nasal passages to stay hydrated. If a person is using both a full face mask and a PAP machine with a heated humidifier and is still experiencing dry mouth, an ill-fitted PAP mask might be causing the problem. Leakage can be caused by a mask that is to large or small, the wrong style mask, the cushion is degraded or simply because the mask's straps aren't adjusted correctly. If leakage occurs, dry air from the room can leak in while humidification escapes. The result is reduced humidification within the circuit and resulting in dry throat and mouth. Finally, beyond factors involving the PAP machine and mask, dry mouth can also be caused or worsened by dehydration. The general recommendation to during eight 8 oz. glasses of water a day might be too little for many people. When people drink large amounts of coffee or other caffeine beverages, or sweat a lot during the day, making sure to rehydrate is an important part of PAP therapy. Provided the patient with a list of local home care stores where positive airway pressure (PAP) units, accoutrement, and services are available. Home care store selection is based on patient's insurance carrier. Patient will setup an appointment with [facility] for supplies and pressure adjustments. A major predictor of success with use of PAP is follow-up with both the respiratory supplier and the treating physician. The respiratory supplier optimally will follow-up within two weeks after starting use while the treating physician optimally will follow-up within 90 days after starting therapy to assess adherence and effectiveness of treatment. The download results can show the treating physician information about adherence to treatment, residual AHI while on treatment and presence of large mask leakage. This information is especially helpful if the patient has residual sleepiness despite treatment. General information on sleep disordered breathing, evaluation of sleep disordered breathing, treatment with PAP therapy, and living with PAP therapy were covered. We discussed with the patient the impact of weight on: Sleep disordered breathing CHF Hypertension Hepatic steatosis Right inguinal hernia Lumbar spondylosis We discussed with the patient the benefit of PAP therapy on: Sleep disordered breathing Anxiety Elevated right hemidiaphragm Mild KUSHAL Atrial fibrillation CHF Hypertension Educated the patient on sleep hygiene measures. Relaxing rituals to rest easy, understanding foods with positive and negative impact on sleep, creating a peaceful sleep environment, timing of exercise, using herbal sleep aids, and practicing sleep-friendly meditation were covered. To determine how much sleep is needed, the patient will assess where he falls on the spectrum, examine what lifestyle factors such as work schedules and stress are affecting the quality and quantity of sleep. In general, adults need 7-9 hours of sleep. Educated the patient regarding foods that promote sleep. These include but are not limited to cherries, bananas, toast, oatmeal, and warm milk. Educated the patient regarding foods and drinks to avoid before bedtime. These include but are not limited to aged cheese, chocolate, spicy foods, tomato-based sauces, soy, ginseng tea and processed meat. Advocated influenza vaccination annually and pneumonia vaccination ENEDINA. Advocated weight loss through diet and exercise. Patient's ideal body weight according to height and gender is up to 160 lbs. Encouraged patient to adjust caloric intake to maintain/achieve ideal body weight, emphasizing on fruits, vegetables, whole grains, and fat-free or low-fat products. These include lean meats, poultry, fish, beans, eggs, and nuts and foods that are low in saturated fats, trans-fats, cholesterol, salt (sodium), and glycemic index. Stressed the importance of regular exercise up to the patient's capacity limits. In this case, we recommend 20 min daily walking, 2 days a week of resistance training. Patient to monitor BP daily and bring records to PCP for further management. Follow-up: 1 year, June 2025 Not available 07/11/2024 11:06:54 Plan of Treatment Reminders Order Date Submit Date Provider Last Modified By Organization Details Last Modified Time Details Appointments Any 30 2024 10:00A M Michi Cardenas MD Not available Not available Not available Lab None recorded. Referral None recorded. Procedures None recorded. Surgeries None recorded. Imaging polysomno gram, titration study - No auth needed 2023 024 5 [facility], [address] [place] [address], [address], 04/10/2024 08:41:42 home sleep study - *Please call pt to schedule* 2023 024 [email or web address] 56 [facility], [address] [place], [address], 07/25/2024 10:33:19 Medication Orders oxycodone -acetamin ophen 10 mg-325 mg tablet 2023 ALF[facility]ZO Not available 03/09/2024 11:11:14 alprazola m 0.5 mg tablet 2023 ALFONZO Not available 04/08/2024 13:57:37 Patient TargetsNo targets recorded. Patient Instructions Encounter Date Encounter Id Patient Instructions Last Modified By Organization Details Last Modified Time 03/09/2024 [id number] Thank you for your visit to our office today. We would like to request that you reach out to your referring or previous provider and request that they send us a Summary of Care in electronic form, so that we may have it on file in your medical record. At your visit, we had the medical records we needed to provide you with the best possible care; however, for insurance purposes, an electronic Summary of Care is beneficial. Thank you for your assistance in obtaining this information and we look forward to providing continued care to you. Please review your medication list from the Summary of Care for this visit. If there are any differences from what you are currently taking at home, please call us to discuss. Not available 03/09/2024 10:33:54 Homebound Status : {{Patient has an inability to leave the home without a taxing effort and assistance from another person Does not meet homebound status}} Required Home Health Services: {{none care home, physical therapy, occupational therapy care home, physical therapy care home}} Durable Medical Equipment needed: {{cane walker wal ker with seat manual wheelchair bedsid e commode oxygen}} Billing Guidelines CPT code 98732- Transitional Care Management services with moderate medical decision complexity ([id number] visit within 14 days of discharge). CPT code 76186- Transitional Care Management services with high medical decision complexity (yawm-ia-ruzi visit within 7 days of discharge). Not available 03/09/2024 10:33:54 Reason for Referral None Reported. Results Created Date Observation Date Name Description Value Unit Range Abnormal Flag Note LastModifiedBy Organization Detail LastModifiedTime 03/03/20 24 03/03/2024 XR, chest No observ ation record ed. [address] [address], [place], [address], 03/03/2024 13:45:12 03/04/20 24 03/03/2024 , echoc ardio gram No observ ation record ed. [address], [place], [address], 03/04/2024 18:38:58 03/06/20 24 03/06/2024 , echoc ardio gram No observ ation record ed. [address] [address], [place], [address], 03/06/2024 16:16:56 03/29/20 24 03/23/2024 home sleep study No observ ation record ed. [facility] Not Available 2023 16:54:17 Result Notes None recorded. Problems Name Problem SNOMED Code Status Onset Date Resolution Date Notes Provider Name and Address Organization Details Recorded Time Degeneration of lumbar intervertebral disc 70003395 Active 2022 Not Available [facility] 4 18:32:46 Arthritis 7750722 Active 2021 Not Available [facility] 4 18:32:46 Anxiety 11455800 Active 2021 Not Available [facility] 4 18:32:46 Increased liver function 85379954 Active 2022 Not Available [facility] 4 18:32:46 Atrial fibrillation 68544926 Active 2023 MICHAEL Wood [address], [place], [address] , [facility] 4 10:34:39 Sleep apnea 32660549 Active 2023 MICHAEL Wood [address], [place], [address] , [facility] 4 10:39:44 Obstructive sleep apnea syndrome 23672851 Active 2023 Michi Cardenas MD [address], [place], [address] , [facility] 4 10:23:01 Notes:Medical History: Eczem a Anxiety Bilateral tinnitus Elevated right hemidiaphragm Mod OSAHS, AHI = 20, 03/23/24, on autoCPAP c[facility]o [facility] Mod MR Mod LVE Mod LAE Mild KUSHAL Atrial fibrillation on amiodarone and Xarelto CHF Hypertension Hepatic steatosis Right inguinal hernia Right renal cyst Renal calculi BPH Lumbar spondylosis Lumbar dextroscoliosis Procedure History: Lumbar fusions 2003, 2010 Left total hip arthroplasty 2011 Right total knee arthroplasty 2011 Left total knee arthroplasty 2021 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 Procedures Surgical History Date Name Laterality Status Provider Name and Address Organization Details Recorded Time 03/09/20 24 Transitional_Car e_Management completed MICHAEL Wood [address], [place], [address], [facility] 03/09/2024 10:34:30 12/09/19 24 Wound Care-Podiatry completed Colton Caldwell DPM [address], [place], [address], [facility] 12/09/2023 12:57:24 11/29/19 24 Wound Care-Podiatry completed Colton Caldwell DPM [address], [place], [address], [facility] 11/29/2023 10:23:34 11/16/19 24 Partial Nail Avulsion Chemical Matrixectomy-Rig ht completed Colton Caldwell DPM [address], [place], [address], [place] [employer] 11/16/2023 11:23:08 11/16/19 24 Partial Nail Avulsion Chemical Matrixectomy-Lef t completed Colton Caldwell DPM [address], [place], [address], [place] [employer] 11/16/2023 11:22:55 03/25/20 23 Nail Debridement completed Colton Caldwell DPM [address], [place], [address], [place] [employer] 03/25/2023 10:27:08 Lumbar Spine Surgery completed Not Available [facility] 12/17/2022 00:24:42 Total knee arthroplasty completed Not Available [facility] 12/17/2022 00:24:42 EGD completed Not Available [facility] 11/2022 00:24:42 Total knee arthroplasty completed Not Available [facility] 12/17/2022 00:24:42 operation on lumbar spine completed Not Available [facility] 12/17/2022 00:24:42 Colonoscopy completed Not Available [facility] 12/17/2022 00:24:42 total replacement of hip completed Not Available [facility] 12/17/2022 00:24:42 Abdominal Surgery completed Not Available [facility] 12/17/2022 00:24:42 Abdominal Surgery completed Not Available [facility] 12/17/2022 00:24:42 repair of inguinal hernia completed Not Available [facility] 12/17/2022 00:24:42 Imaging Results Imaging Date Name Status LastModified by Organization Details LastModified Time 03/03/2024 XR, chest completed [facility] [address] [place] [address], [address], 03/03/2024 13:45:12 03/03/2024 US, echocardiogram completed [facility] Carlson [address], [address], 03/04/2024 18:38:58 03/06/2024 US, echocardiogram completed [email or web address] Aldo on [address], [place], [address], 03/06/2024 16:16:56 03/23/2024 home sleep study completed [facility] not available 03/29/2024 16:54:17 Procedure Notes None recorded. Medical Equipment None Reported. Allergies No known drug allergies Medications Name Sig Start Date Stop Date Status Note LastModified by Organization Details LastModified Time furosemide 40 mg tablet active Not Available Not Available Not Available atorvastati n 40 mg tablet active Not Available Not Available Not Available triamcinolo ne acetonide 0.5 % topical cream APPLY EXTERNALL Y TO THE AFFECTED AREA TWICE DAILY prn 04/03 completed Not Available Not Available Not Available azithromyci n 250 mg tablet TK 2 TS PO ON DAY 1, THEN TK 1 T PO D FOR 4 DAYS 12/23 completed Not Available Not Available Not Available ibuprofen 800 mg tablet Take 1 tablet 3 times a day by oral route. 04/03 completed Not Available Not Available Not Available alprazolam 1 mg tablet TAKE 1 TABLET BY MOUTH TWICE DAILY NEEDED 12/23 completed Not Available Not Available Not Available amiodarone 200 mg tablet TAKE 2 TABLETS BY MOUTH EVERY DAY AT 8 AM active Not Available Not Available No t Available meloxicam 15 mg tablet 1 po qday with food active Not Available Not Available No t Available fluorouraci l 5 % topical cream active Not Available Not Available Not Available ciprofloxac in 500 mg tablet TAKE 1 TABLET BY MOUTH EVERY 12 HOURS FOR 10 DAYS 12/23 completed Not Available Not Available Not Available hydrocodone 10 mg-acetamin ophen 325 mg tablet TAKE 1 TABLET 3 TIMES A DAY BY ORAL ROUTE NEEDED. 07/28 completed Not Available Not Available Not Available triamcinolo ne acetonide 0.1 % topical cream active Not Available Not Available Not Available spironolact one 25 mg tablet TAKE 1/2 TABLET BY MOUTH EVERY DAY active Not Available Not Available No t Available carvedilol 3.125 mg tablet active Not Available Not Available Not Available carbamazepi ne 200 mg tablet active Not Available Not Available Not Available oxycodone-a cetaminophe n 5 mg-325 mg tablet TAKE 1 TABLET BY MOUTH EVERY 8 HOURS NEEDED 10/28 completed Not Available Not Available Not Available alprazolam 0.5 mg tablet TAKE 1 TABLET BY MOUTH THREE TIMES DAILY NEEDED FOR ANXIETY active Not Available Not Available No t Available amoxicillin 875 mg tablet TAKE 1 TABLET BY MOUTH EVERY 12 HOURS FOR 7 DAYS 12/23 completed Not Available Not Available Not Available oxycodone-a cetaminophe n 10 mg-325 mg tablet Take 1 tablet twice a day by oral route as needed for 30 days. active Not Available Not Available No t Available tamsulosin 0.4 mg capsule TAKE 1 CAPSULE BY MOUTH EVERY DAY 03/25 completed Not Available Not Available Not Available cephalexin 500 mg capsule Take 1 capsule every 6 hours by oral route as directed for 7 days. 01/13 completed Not Available Not Available Not Available pantoprazol e 40 mg tablet,brett yed release 1 po qday 03/25 completed Not Available Not Available Not Available gabapentin 300 mg capsule 1 po qhs active Not Available Not Available Not Available ketoconazol e 2 % topical cream APPLY TO THE AFFECTED AREA(S) great toes BY TOPICAL ROUTE ONCE DAILY 04/03 completed Not Available Not Available Not Available finasteride 5 mg tablet TAKE 1 TABLET BY MOUTH DAILY active Not Available Not Available No t Available gentamicin 0.1 % topical ointment APPLY A SMALL AMOUNT TO THE AFFECTED AREA grea toe wounds BY TOPICAL ROUTE 3 TIMES PER DAY 04/03 completed Not Available Not Available Not Available amoxicillin 875 mg-potmichaeliu m clavulanate 125 mg tablet 07/11 completed Not Available Not Available Not Available bupropion HCl XL 150 mg 24 hr tablet, extended release TAKE 1 TABLET BY MOUTH EVERY DAY 03/25 completed Not Available Not Available Not Available Xarelto 20 mg tablet TAKE 1 TABLET BY MOUTH EVERY DAY AT 5 PM active Not Available Not Available No t Available Entresto 49 mg-51 mg tablet TAKE 1 TABLET BY MOUTH TWICE DAILY active Not Available Not Available No t Available Entresto 24 mg-26 mg tablet TAKE 1 TABLET BY MOUTH EVERY 12 HOURS 04/10 completed Not Available Not Available Not Available Vitals Date Recorded Body height Body mass index (BMI) Body weight Body temperature Heart rate Oxygen saturation Oxygen saturation in Arterial blood by Pulse oximetry Systolic blood pressure Diastolic blood pressure Provider Name and Address Organization Details Last Updated DateTime 05/23/202 4 170.18 cm 28.2 kg/m2 90945.6 3 g 97.1 [degF] 71 /min 98 % 98 % 128 mm[Hg] 82 mm[Hg] Lorena Curtis RN [facility] [employer] [facility] 4 10:28:13 Date Recorded Body height Body mass index (BMI) Body weight Oxygen saturation Oxygen saturation in Arterial blood by Pulse oximetry Heart rate Body temperature Systolic blood pressure Diastolic blood pressure Provider Name and Address Organization Details Last Updated DateTime 4 170.18 cm 29.3 kg/m2 79041.7 7 g 97 % 97 % 68 /min 97.3 [degF] 124 mm[Hg] 68 mm[Hg] Shivani Schmidt [facility] [employer] [facility] 4 09:41:13 Date Recorded Heart rate Respiratory rate Provider N norman and Address Organization Details Last Updated DateTime 04/03/2024 68 /min 15 /min Michi Cardenas MD [address] [email or web address] [address] [place] [address], [id number] [employer] [facility] 04/03/2024 10:35:51 Date Recorded Body height Body mass index (BMI) Body weight Body temperature Heart rate Oxygen saturation Oxygen saturation in Arterial blood by Pulse oximetry Systolic blood pressure Diastolic blood pressure Provider Name and Address Organization Details Last Updated DateTime 4 170.18 cm 29.1 kg/m2 50650.1 8 g 97.2 [degF] 77 /min 96 % 96 % 118 mm[Hg] 68 mm[Hg] Shivani Schmidt [facility] [employer] [facility] 4 11:09:59 Date Recorded Heart rate Respiratory rate Provider N norman and Address Organization Details Last Updated DateTime 04/10/2024 77 /min 15 /min Michi Cardenas MD [address], [place], [address] [employer] [facility] 04/10/2024 11:51:40 Date Recorded Body height Body mass index (BMI) Body weight Body temperature Heart rate Oxygen saturation Oxygen saturation in Arterial blood by Pulse oximetry Systolic blood pressure Diastolic blood pressure Provider Name and Address Organization Details Last Updated DateTime 4 170.18 cm 29.8 kg/m2 99795.5 5 g 98.3 [degF] 64 /min 95 % 95 % 128 mm[Hg] 70 mm[Hg] Faina Corea [place] [employer] [facility] [employer] 11:10:16 Date Recorded Heart rate Respiratory rate Provider Ryan austin and Address Organization Details Last Updated DateTime 07/11/2024 64 /min 14 /min Michi Cardenas MD [address] [facility], [facility] [address], [place], [address], [place] [employer] [facility] [employer] 07/11/2024 11:21:10 Social History Question Answer Notes LastModified by Organizat ion Details LastModified Time Tobacco Smoking Status Former Smoker quit 40+ years ago Gisella ed[place], [place] [employer] [facility] [employer] 11/16/2023 09:20:50 Are You Blind Or Do You Have Difficulty Seeing? No Information not available 11/16/2023 What Is Your Level Of Caffeine Consumption? Occasional [id number] Information not available 12/17/2022 In The 14 Days Before Symptom Onset, Have You Had Close Contact With A Laboratory-confir med COVID-19 While That Case Was Ill? No Information not available 11/16/2023 In The 14 Days Before Symptom Onset, Have You Had Close Contact With A Person Who Is Under Investigation For COVID-19 While That Person Was Ill? No Information not available 11/16/2023 Are You Deaf Or Do You Have Serious Difficulty Hearing? No Information not available 11/16/2023 What Type Of Diet Are You Following? REGULAR [id number] Information not available 12/17/2022 Do You Have An Electrostatic Air Filter? No Information not available 07/11/2024 Do You Have A Humidifier? No Information not available 07/11/2024 Do You Have Moisture Problems In Your Home? No Information not available 07/11/2024 What Was The Date Of Your Most Recent Tobacco Screening? 07/11/2024 Information not available 07/11/2024 Have You Ever Been Counseled For Unhealthy Alcohol Use? No Information not available 11/16/2023 Do You Have Any Pets? No Information not available 07/11/2024 What Is Your Relationship Status? [id number] Information not available 12/17/2022 Do You Use Your Seat Belt Or Car Seat Routinely? Yes Information not available 07/11/2024 Do You Have Smoke And Carbon Monoxide Detectors In Your Home? Yes Information not available 07/11/2024 Are You Passively Exposed To Smoke? No Information no t available 07/11/2024 Do You Use Sunscreen Routinely? Yes Information not available 07/11/2024 Has Tobacco Cessation Counseling Been Provided? No Information not available 11/16/2023 Have You Recently Traveled Abroad? No Information not available 11/16/2023 Do You Have Difficulty Walking Or Climbing Stairs? No Information not available 11/16/2023 Do You Have Any Dietary Restrictions? No Information not available 11/16/2023 Sex: Unknown Functional Status Question Answer Note LastModified by [employer] ion Details LastModified Time Do you use any illicit or recreational drugs? No Information not available 11/16/2023 Do you or have you ever used any other forms of tobacco or nicotine? No Information not available 11/16/2023 What is your level of alcohol consumption? Moderate [id number] Information not available 12/17/2022 Are you currently employed? Retired Information not available 07/11/2024 Have you been exposed to chemicals or toxins? not that aware of Information not available 07/11/2024 Do you have transportation difficulties? No Information not available 11/16/2023 Are you able to walk? YESWOREST Information not available 11/16/2023 Do you have difficulty doing errands alone? No Information not available 11/16/2023 Are you able to care for yourself? Yes Information n ot available 11/16/2023 Do you have difficulty dressing or bathing? No Information not available 11/16/2023 What is your exercise level? Occasional [id number] Information not available 12/17/2022 Mental Status Question Answer Note LastModified by Organizat ion Details LastModified Time Do you feel stressed (tense, restless, nervous, or anxious, or unable to sleep at night)? [id number] Information not available 11/16/2023 [id number]|2025-03-03 09:00:00|2025-03-03 09:00:00|XMS_ITS|BKG DARUBIOON|External Medical Summaries|[id number]|" Encounter Summary Created on: March 03, 2025 Mr. Marko Lyons : 1950 Sex: Male Author Organization [facility] Address [address] [place] [address] Care Team Providers Care Glue Bone Drier Name Role Phone AsifMariely Phill ESPINOZA Primary Care Provider [phone] Gonzalez Santizo MD Unavailable [phone] Encounter Details Date Type Department Care Team (Late st Contact Info) Description 10/02/2024 Hospital Orders Only [facility] Outpatient Therapy [place], [place] [id number] Carline Rocha, [place] [address] Social History Tobacco Use Types Packs/Day Years Used Date Smoking Tobacco: Never Smokeless Tobacco: Former Chew Alcohol Use Standard Drinks/Week Comments Yes 0 (1 standard drink = 0.6 oz pur e alcohol) 3-4 beers/week Sex and Gender Information Value Date Recorded Sex Assigned at Male 11/15/2024 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 Legal Sex Male 10:10 AM CDT Gender Identity Male 08/07/2024 11:19 AM CDT Sexual Orientation Not on file documented as of this encounter Plan of Treatment Upcoming Encounters Date Type Department Care Team (Latest Contact Info) Description 03/07/2025 1:40 PM CDT Hospital Encounter [facility] [place] [address] Benjie Watson MD [address] [place] [address] 03/07/2025 1:40 PM CDT Anesthesia Event [facility] [place] [address] Sheryl Corona FNP [address] [place] [address] 03/07/2025 1:40 PM CDT - 03/07/2025 2:54 PM CDT Surgery [facility] [place] [address] Benjie Watson MD [address] [place] [address] left ulnar nerve open release and anterior transposition at the elbow 03/13/2025 10:20 AM CDT Office Visit [facility] [place] [address] [place] [address] Benjie Watson MD [address] [place] [address] Scheduled Procedures Name Priority Associated Diagnoses Date/Ti me TRANSPOSITION ULNAR NERVE (CUBITAL TUNNEL) Cubital tunnel syndrome on left 03/07/2025 1:40 PM CDT documented as of this encounter Visit Diagnoses Not on filedocumented in this encounter Care Teams Glue Bone Drier Relationship Specialty Start Date End Date Mariely Gold NP [address] [place] [address] PCP - General FAMILY PRACTICE 06/01/24 Gonzalez Santizo MD [address] [facility] [address] [place] [address] CARDIOVASCULAR DISEASE 08/09/24 documented as of this encounter "
--- OUTSIDE RECORDS SUMMARY | 2025-03-03 09:00 | XMS_ITS | Clinical Summary ---
Author Organization [facility] Address [address] [place] [address] Care Team Providers Care Tutoring Assistant Name Role Phone Mariely Gold NP Primary Care Provider [phone] Allergies Active Allergy Reactions Criticality Noted Date Comments No Known Allergies Other (See comments) Low 019 Reaction: Medications ALPRAZolam (XANAX) 0.5 mg tablet Take 1 tablet (0.5 mg total) by mouth 3 (three) times a day as needed Active triamcinolone (KENALOG) 0.1 % ointment Active oxyCODONE-acetamin ophen (PERCOCET) 5-325 mg per tablet 0 02/15/20 19 Active multivitamin,tx-mi nerals (VITAMINS AND MINERALS) tablet Take 1 tablet by mouth Active Xarelto 20 mg tablet Take 1 tablet (20 mg total) by mouth daily with dinner 30 tablet 11 04/06/20 24 Active finasteride (PROSCAR) 5 mg tablet Take 1 tablet (5 mg total) by mouth daily Active amiodarone (PACERONE) 200 mg tablet Take 1 tablet (200 mg total) by mouth daily 90 tablet 2 08/31/20 24 Active atorvastatin (LIPITOR) 40 mg tabletIndications: Abnormal result of other cardiovascular function study TAKE 1 TABLET(40 MG) BY MOUTH DAILY 90 tablet 3 02/07/20 25 Active atorvastatin (LIPITOR) 40 mg tabletIndications: Abnormal result of other cardiovascular function study Take 1 tablet (40 mg total) by mouth daily 90 tablet 3 05/11/20 24 025 Discontinued Active Problems Problem Noted Date Diagnosed Date Paroxysmal atrial fibrillation 04/05/2024 Abnormal result of other cardiovascular function study 04/05/2024 Dilated cardiomyopathy 04/05/2024 Abdominal pain 07/01/2021 Overview (07/01/2021): Added automatically from request for surgery [id number] Encounters Date Type Department Care Team Description 12/11/2024 11:15 AM RESIDENTIAL CHILD CARE COUNSELOR Office Visit [facility] Cardiology [address] [place] [phone] Gonzalez Santizo MD Paroxysmal atrial fibrillation (HCC) (Primary Dx); Dilated cardiomyopathy (HCC) from Last 3 Months Surgical History Surgery Date Site/Laterality Comments ABSCESS CATHETER INJECTION 11/06/2016 N/A ABSCESS TUBE EXCHANGE 10/20/2016 N/A ABSCESS CATHETER INJECTION 10/20/2016 N/A ABSCESS TUBE EXCHANGE 10/08/2016 N/A ABSCESS CATHETER INJECTION 10/08/2016 N/A CT GUIDED DRAINAGE PERITONEA L OR RETROPERITONEAL FLUID COLLECTION 09/25/2016 N/A SPINAL FUSION Medical History Medical History Date Comments GERD (gastroesophageal reflux disease) Atrial fibrillation (HCC) Family History Medical History Relation Name Comments Stroke Father Family history of cerebrovascular accident (CVA) - (Added by TW Conv) Relation Name Status Comments Father Social History Tobacco Use Types Packs/Day Years Used Date Smoking Tobacco: Former Smokeless Tobacco: Former Tobacco Cessation:Counseling Given: Not Answered AUDIT-C Answer Date Recorded Q1: How often [...] on file Legal Sex Male 8:30 AM RESIDENTIAL CHILD CARE COUNSELOR Gender Identity Not on file Sexual Orientation Not on file Obstetrics History Last Filed Vital Signs Vital Sign Reading Time Taken Comments Blood Pressure 112/70 12/11/2024 11:00 AM RESIDENTIAL CHILD CARE COUNSELOR Pulse 98 12/11/2024 11:00 AM RESIDENTIAL CHILD CARE COUNSELOR Temperature 36.5 C (97.7 F) 07/02/2021 12:00 PM CDT Respiratory Rate 18 07/02/2021 12:3 0 PM CDT Oxygen Saturation 93% 12/11/2024 11: 00 AM RESIDENTIAL CHILD CARE COUNSELOR Inhaled Oxygen Concentration - - Weight 82.5 kg (181 lb 14.4 oz) 025 11:00 AM RESIDENTIAL CHILD CARE COUNSELOR Height 170.2 cm (5' 7 ) 12/11/2024 11:0 0 AM RESIDENTIAL CHILD CARE COUNSELOR Body Mass Index 28.49 12/11/2024 11:00 AM RESIDENTIAL CHILD CARE COUNSELOR Plan of Treatment Health Maintenance Due Date Last Done Comments Colon Cancer Screening-Colonoscopy 1950 Depression Screening 1950 Hepatitis C Screening 1950 DTaP/Tdap/Td Vaccine (1 - Tdap) 1962 Hepatitis B Screening 1969 Pneumococcal vaccine 65+ (1 of 1 - PCV) 2001 Zoster Vaccine (2 of 3) 03/20/2016 01/24/2016 Well Visit 65+ 2016 Fall Risk Assessment 07/02/2022 07/02/2021 Influenza Vaccine (Season Ended) 2025 07/27/20 21 Abdominal Aortic Aneurysm (A AA) Screen Completed 02/17/2017, 11/06/2016, 09/15/2016, Additional history exists Procedures Procedure Name Priority Date/Time Associated Diagnosis Comments CT ABDOMEN PELVIS W CONTRAST Routine 02/17/2017 8:27 PM CDT from Last 3 Months or Most Recently Relevant to Health Maintenance Results * CT Abdomen Pelvis W Contrast (02/17/2017 8:27 PM CDT) Anatomical Region Laterality Modality Body N/A Computed Tomogra phy 02/17/2017 8:27 PM CDT Narrative 02/17/2017 8:27 PM CDT ANUJ CORRAL M.D. FINAL REPORT ACC# Date Time Exam [id number] February 17, 2017 15:27:[id number] Abd and Pelvis with cont EXAMINATION: Computed tomography examination of the abdomen and pelvis with contrast HISTORY: Abdominal hernia. TECHNIQUE: Following the administration of 94 cc Optiray-350 images were obtained through the abdomen and pelvis using standard protocol. FINDINGS: Comparison is made to prior computed tomography examination of the abdomen and pelvis dated 11/06/2016. The liver, gallbladder, pancreas, spleen, both adrenal glands, and both kidneys appear normal. There has been interval removal of previously present left retroperitoneal drainage catheter. There is no residual drainable fluid collection. There is mild diastases of the rectus abdominal muscle. There is no definite abdominal wall hernia. The urinary bladder and prostate appear normal. Images obtained with bone window settings demonstrate a left hip arthroplasty an anterior spinal fusion within the lower lumbar spine. Marked multilevel degenerative changes present throughout the spine. Images obtained through the lung bases are clear. IMPRESSION: 1. Mild rectus abdominal muscle diastases without definite hernia. 2. Interval removal of retroperitoneal drainage catheter without residual fluid collection. Requested By: GONZALEZ BRODERICK MD, PHD Dictated By: ANUJ CORRAL M.D. on Feb 17 2017 3:51P This document has been electronically signed by: ANUJ CORRAL M.D. on Feb 17 2017 3:51P [id number] Procedure Note Miscellaneous, Not In File / Provider, MD Marjorie - 03/13/2017 ANUJ CORRAL M.D. FINAL REPORT ACC# Date Time Exam [id number] February 17, 2017 15:27:[id number] Abd and Pelvis with cont EXAMINATION: Computed tomography examination of the abdomen and pelvis with contrast HISTORY: Abdominal hernia. TECHNIQUE: Following the administration of 94 cc Optiray-350 images were obtained through the abdomen and pelvis using standard protocol. FINDINGS: Comparison is made to prior computed tomography examination of the abdomen and pelvis dated 11/06/2016. The liver, gallbladder, pancreas, spleen, both adrenal glands, and both kidneys appear normal. There has been interval removal of previously present left retroperitoneal drainage catheter. There is no residual drainable fluid collection. There is mild diastases of the rectus abdominal muscle. There is no definite abdominal wall hernia. The urinary bladder and prostate appear normal. Images obtained with bone window settings demonstrate a left hip arthroplasty an anterior spinal fusion within the lower lumbar spine. Marked multilevel degenerative changes present throughout the spine. Images obtained through the lung bases are clear. IMPRESSION: 1. Mild rectus abdominal muscle diastases without definite hernia. 2. Interval removal of retroperitoneal drainage catheter without residual fluid collection. Requested By: GONZALEZ BRODERICK MD, PHD Dictated By: ANUJ CORRAL M.D. on Feb 17 2017 3:51P This document has been electronically signed by: ANUJ CORRAL M.D. on Feb 17 2017 3:51P [id number] us Not In File Miscellaneous IMG CT PROCEDURES Therese l Result from Last 3 Months or Most Recently Relevant to Health Maintenance Insurance MEDICARE [employer] [place] [employer] [employer] [facility] Advance Directives For more information, please contact: [phone] * Full Code (Latest Code Status on File) Date Activated Date Inactivated Comments 07/02/2021 11:26 AM 07/02/2021 4:57 PM Care Teams Tutoring Assistant Relationship Specialty Start Date End Date [place] [address] PCP - General Family Practice 08/31/24
--- OUTSIDE RECORDS SUMMARY | 2025-03-03 09:00 | XMS_ITS | Referral Summary ---
Author Organization [facility] Address [address] [place] [address] Care Team Providers Care Patient Svcs Mgr Name Role Phone Mariely Gold NP Primary Care Provider [phone] Encounters Date Type Department Care Team Description 12/11/2024 11:15 AM OPERATORS SCHOOL MANAGER Office Visit [facility] Cardiology [address] [place] [phone] Gonzalez Santizo MD Paroxysmal atrial fibrillation (HCC) (Primary Dx); Dilated cardiomyopathy (HCC) from Last 3 Months Allergies Active Allergy Reactions Criticality Noted Date [...] BY MOUTH DAILY 90 tablet 3 02/07/20 Active atorvastatin (LIPITOR) 40 mg tabletIndications: Abnormal result of other cardiovascular function study Take 1 tablet (40 mg total) by mouth daily 90 tablet 3 05/11/20 24 025 Discontinued Active Problems Problem Noted Date Diagnosed Date Paroxysmal atrial fibrillation 04/05/2024 Abnormal result of other cardiovascular function study 04/05/2024 Dilated cardiomyopathy 04/05/2024 Abdominal pain 07/01/2021 Overview (07/01/2021): Added automatically from request for surgery [id number] Social History Tobacco Use Types Packs/Day Years [...] on file Legal Sex Male 8:30 AM OPERATORS SCHOOL MANAGER Gender Identity Not on file Sexual Orientation Not on file Last Filed Vital Signs Vital Sign Reading Time Taken Comments Blood Pressure 112/70 12/11/2024 11:00 AM OPERATORS SCHOOL MANAGER Pulse 98 12/11/2024 11:00 AM OPERATORS SCHOOL MANAGER Temperature 36.5 C (97.7 F) 07/02/2021 12:00 PM CDT Respiratory Rate 18 07/02/2021 12:3 0 PM CDT Oxygen Saturation 93% 12/11/2024 11: 00 AM OPERATORS SCHOOL MANAGER Inhaled Oxygen Concentration - - Weight 82.5 kg (181 lb 14.4 oz) 025 11:00 AM OPERATORS SCHOOL MANAGER Height 170.2 cm (5' 7 ) 12/11/2024 11:0 0 AM OPERATORS SCHOOL MANAGER Body Mass Index 28.49 12/11/2024 11:00 AM OPERATORS SCHOOL MANAGER Plan of Treatment Not on file Procedures Procedure Name Priority Date/Time Associated Diagnosis [...] M.D. FINAL REPORT ACC# Date Time Exam [id number] February 17, 2017 15:27:[id number] Abd and Pelvis with cont EXAMINATION: [...] CORRAL M.D. on Feb 17 2017 3:51P [id number] Procedure Note Miscellaneous, Not In File / Provider, MD Marjorie - 03/13/2017 ANUJ CORRAL M.D. FINAL REPORT ACC# Date Time Exam [id number] February 17, 2017 15:27:[id number] Abd and Pelvis with cont EXAMINATION: [...] CORRAL M.D. on Feb 17 2017 3:51P [id number] us Not In File Miscellaneous IMG CT PROCEDURES Therese l Result from Last 3 Months or Most Recently Relevant to Health Maintenance [place] [address] [facility] Advance Directives For more information, please contact: [phone] * Full Code (Latest Code Status on File) Date Activated Date Inactivated Comments 07/02/2021 11:26 AM 07/02/2021 4:57 PM Care Teams Patient Svcs Mgr Relationship Specialty Start Date End Date Mariely Gold NP [address] [place] [address] PCP - General Family Practice 08/31/24
--- OUTSIDE RECORDS SUMMARY | 2025-03-03 09:00 | XMS_ITS | Encounter Summary ---
Author Organization [employer] Address [address] [place] [address] Care Team Providers Care Marketing Development Specialist Name Role Phone Anuj Richter MD Primary Care Provider [phone] Encounter Details Date Type Department Care Team (Latest Contact Info) Description 09/25/1999 Outpatient Historical [facility] Matty Villaseñor MD Displacement of lumbar intervertebral disc without myelopathy (Primary Dx) Social History Tobacco Use Types Packs/Day Years Used Date Smoking Tobacco: Never Assessed Sex and Gender Information Value Date Recorded Sex Assigned at Not on file Legal Sex Male 3:45 AM HEALTH PROFESSOR Gender Identity Not on file Sexual Orientation Not on file documented as of this encounter Plan of Treatment Not on file documented as of this encounter Visit Diagnoses Diagnosis Displacement of lumbar intervertebral disc without myelopathy- Primary documented in this encounter Care Teams Marketing Development Specialist Relationship Specialty Start Date End Date Anuj Richter MD PCP - General Family Practice 06/12/11 documented as of this encounter
--- OUTSIDE RECORDS SUMMARY | 2025-03-03 09:00 | XMS_ITS | Encounter Summary ---
Author Organization [employer] Address 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
--- OUTSIDE RECORDS SUMMARY | 2025-03-03 09:00 | XMS_ITS | Encounter Summary ---
Author Organization [facility] Address [address] [place] [address] Care Team Providers Care Auto Technician Name Role Phone Anuj Richter MD Primary Care Provider [phone] Pérez Levy NP Primary Care Provider [phone] Mariely Gold NP Primary Care Provider [phone] Encounter Details Date Type Department Care Team (Late st Contact Info) Description 03/03/2024 Orders Only [facility] [place] Health Information Management [address] [place] [id number] Scanning, Provider Social History Tobacco Use Types [...] on file 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 Gender Identity Not on file Sexual Orientation Not on file documented as of this encounter Plan of Treatment Not on file documented as of this encounter Procedures Procedure Name Priority Date/Time Associated Diagnosis Comments SCAN - RADIOLOGY/IMAGING 03/03/2024 documented in this encounter Results * SCAN - RADIOLOGY/IMAGING (03/03/2024) Anatomical Region Laterality Modality Other us Provider Scanning Final Result documented in this encounter Visit Diagnoses Not on filedocumented in this encounter Care Teams Auto Technician Relationship Specialty Start Date End Date Anuj Richter MD PCP - General 02/10/17 04/04/24 Pérez Levy NP [address] [place] [address] PCP - General Family Medicine 04/05/24 08/30/24 Mariely Gold NP [address] [place] [address] [place] [address] PCP - General Family Practice 08/31/24 documented as of this encounter
--- OUTSIDE RECORDS SUMMARY | 2025-03-03 09:00 | XMS_ITS | Encounter Summary ---
Author Organization [employer] Address 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
--- OUTSIDE RECORDS SUMMARY | 2025-03-03 09:00 | XMS_ITS | Clinical Summary ---
Author Organization [facility] Address [address] [place] [address] Care Team Providers Care Hand Scudder Name Role Phone Mariely Gold NP Primary Care Provider [phone] Gonzalez Santizo MD Unavailable [phone] Allergies No known active allergies Medications finasteride (PROSCAR) 5 MG tablet Take 1 tablet (5 mg total) by mouth daily. Active triamcinolone (KENALOG) 0.1 % cream Apply topically as needed. Active amiodarone (PACERONE) 200 MG tablet Take 1 tablet (200 mg total) by mouth daily. 4 Active ALPRAZolam (XANAX) 0.5 MG tablet Take 1 tablet (0.5 mg total) by mouth 3 (three) times daily as needed. Active atorvastatin (LIPITOR) 40 MG tablet Take 1 tablet (40 mg total) by mouth nightly at bedtime. 4 Active Multiple Vitamins-Minera ls (CENTRUM SILVER ULTRA MENS OR) Take 1 tablet by mouth daily. Active rivaroxaban (XARELTO) 20 MG Tab tablet Take 1 tablet (20 mg total) by mouth daily with supper. Take with food Active oxyCODONE-aceta minophen (PERCOCET) 10-325 MG tablet TAKE 1 TABLET BY MOUTH IN THE MORNING AND TAKE 1 TABLET IN THE EVENING 5 Active sildenafil (VIAGRA) 100 MG tablet Take 1 tablet (100 mg total) by mouth daily. 5 Active furosemide (LASIX) 40 MG tablet Take 1 tablet (40 mg total) by mouth daily. 4 03/01/20 Discontinu ed(Error) ENTRESTO 49-51 MG tablet Take 1 tablet by mouth 2 (two) times daily. 4 03/01/20 Discontinu ed(Error) pregabalin (LYRICA) 50 MG capsule Take 1 capsule (50 mg total) by mouth 3 (three) times daily. 4 03/01/20 Discontinu ed(Error) doxycycline hyclate (VIBRAMYCIN) 100 MG capsule 5 03/01/20 Discontinu ed(Error) Active Problems Problem Noted Date Diagnosed Date Cubital tunnel syndrome on right 11/01/2024 Cubital tunnel syndrome on left 09/08/2024 Arthritis of knee 08/08/2024 Arthritis of right wrist 08/08/2024 Disorder of rotator cuff 08/08/2024 History of total knee replacement 08/08/2024 Dilated cardiomyopathy ([facility]) 024 Obstructive sleep apnea syndrome 03/09/2024 Paroxysmal atrial fibrillation ([facility]) 03/09/2024 Anxiety 10/27/2021 Arthritis 10/27/2021 Spondylosis of lumbosacral r egion without myelopathy or radiculopathy 10/23/2016 Lumbar degenerative disc disease 08/05/2016 Depression 06/03/2016 Lumbar post-laminectomy syndrome 06/03/2016 Radicular pain 06/03/2016 Right knee DJD 01/04/2012 Osteoarthritis of hip 06/16/2011 Encounters Date Type Department Care Team Description 03/01/2025 Travel 02/23/2025 Prep for Procedure [facility] - [place] [address] [place] [id number] Benjie Watson MD 02/15/2025 9:40 AM CDT Office Visit [facility] [place] [address] [place] [address] Chris Riggs, PHERESIS NURSE Follow Up (EMG) 02/15/2025 Scan [facility] INFO SRVCS Scanned, Doc Med Group 02/15/2025 Travel 01/29/2025 1:17 PM CDT - 01/29/2025 11:59 PM CDT Hospital Encounter [facility] Outpatient Therapy [facility] [place] [address] Chris Riggs NP Patchala, Sri K, MD Discharge Disposition: Home or Self Care (Routine Discharge) 01/29/2025 Results Follow-Up [facility] Orthopedic & Sports Medicine [facility] [address] [place] [address] Chris Riggs NP EMG 01/29/2025 Telephone [facility] Orthopedic Sports [facility] [address] [place] [address] Benjie Watson MD Appointment Request 01/29/2025 Travel 01/04/2025 9:40 AM CDT Office Visit [facility] Orthopedic Sports [facility] [address] [place] [address] Chris Riggs NP Follow Up (Left cubital tunnel sx 09/20/24, continued hand pain) 01/04/2025 Travel 12/20/2024 9:40 AM CLOTH EXAMINER Office Visit [facility] [address] [place] [address] Chris Riggs NP Postop Followup (Right cubital tunnel release 11/15/24) 12/19/2024 Travel from Last 3 Months Social History Tobacco Use Types Packs/Day Years Used Date Smoking Tobacco: Never Smokeless Tobacco: Former Chew Tobacco Cessation:Counseling Given: No Alcohol Use Standard Drinks/Week Comments Yes 3.3 (1 standard drink = 0.6 oz p ure alcohol) PHQ-2 Answer Date Recorded Patient Health Questionnaire-2 Score 0 10/30/2024 Sex and Gender Information Value Date Recorded Sex Assigned at Male 11/15/2024 5:23 AM CLOTH EXAMINER Legal Sex Male 10:10 AM CDT Gender Identity Male 08/07/2024 11:19 AM CDT Sexual Orientation Not on file Last Filed Vital Signs Vital Sign Reading Time Taken Comments Blood Pressure 158/91 02/15/2025 10:56 AM CDT Pulse 58 02/15/2025 9:36 AM CDT Temperature 36.6 C (97.9 F) 02/15/2025 9:36 AM CDT Respiratory Rate 16 11/15/2024 9:29 AM CLOTH EXAMINER Oxygen Saturation 96% 11/15/2024 9:29 AM CLOTH EXAMINER Inhaled Oxygen Concentration - - Weight 83.9 kg (185 lb) 03/01/2025 11:47 AM CDT Height 170.2 cm (5' 7 ) 02/15/2025 9:36 AM CDT Body Mass Index 28.98 02/15/2025 9:36 AM CDT Plan of Treatment Upcoming Encounters Date Type Department Care Team (Latest Contact Info) Description 03/07/2025 1:40 PM CDT Hospital Encounter [facility] [address] Benjie Watson MD [address] [place], [place] [id number] [phone] 03/07/2025 1:40 PM CDT Anesthesia Event [facility] [place] [place] [address] Sheryl Corona FNP [address] [place] [address] 03/07/2025 1:40 PM CDT - 03/07/2025 2:[address] [facility] [place] [place] [address] Benjie Watson MD [address] [place], [place] [address] 400- left ulnar nerve open release and anterior transposition at the elbow 03/13/2025 10:20 AM CDT Office Visit [facility] - [place] [address] [place] [address] Benjie Watson MD [address] [place] [address] Scheduled Procedures Name Priority Associated Diagnoses Date/Ti me TRANSPOSITION ULNAR NERVE (CUBITAL TUNNEL) Cubital tunnel syndrome on left 03/07/2025 1:40 PM CDT Health Maintenance Due Date Last Done Comments Colorectal Cancer Screening Colonoscopy (10 Years) 1950 Hepatitis C 1969 DTaP, Tdap and Td Vaccines ( 1 - Tdap) 1970 Pneumococcal Vaccine: 50+ Years (1 of 1 - PCV) 2001 Zoster Vaccines (1 of 2) 2001 RSV Immunization or 60+ Years (1 - Risk 60-74 years 1-dose series) 2011 Annual Medicare Wellness Visit 2016 COVID-19 Vaccine (4 - 2023-2 5 season) 2024 09/17/2021, 02/04/2021, 01/16/2021 PHQ-2 (Physician [place]) Completed 10/30/2024 Meningococcal B Vaccine Aged Out No l onger eligible based on patient's age to complete this topic Meningococcal Vaccine Aged Out No rylan sanju eligible based on patient's age to complete this topic RSV Immunizations Under 20 Months Aged Out No longer eligible b ased on patient's age to complete this topic Goals Goal Patient Goal Type Associated Problems Recent Progress Patient-Stated? Author Autogenerat ed Goal Care Plan Autogenerated Problem No Tavia Mack, cone tender Procedure Name Priority Date/Time Associated Diagnosis Comments EMG Routine 01/29/2025 1:17 PM CDT Hyperesthesia History of decompression of ulnar nerve from Last 3 Months Results * EMG (01/29/2025 1:17 PM CDT) 01/29/2025 1:17 PM CDT Addenda Addendum by Angelic Quispe MD on 02/14/2025 1:24 PM CDT Patient Name: YIMI LYONS Date of : 1950 Account: [id number] Facility: [facility] Location: [facility] Date of Service: 01/29/2025 EMG ADDENDUM CONCLUSION: Compared to his nerve conduction studies in July 2024, there is slight worsening of left ulnar nerve around the elbow area with no response noted across the elbow segment compared to his previous studies in July 2024 which shows left ulnar across the elbow with 0.2 and 0.1 amplitudes below the elbow Even after release, patient might not improve much at this time because nerve was severely damaged even in his initial presentation in July 2024. Signature/Date: ANGELIC QUISPE #[id number] /CARLOS Narrative ESCRIPTION - 01/29/2025 3:16 PM CDT Patient Name: YIMI LYONS Date of : 1950 Account: [id number] Facility: [facility] Location: [facility] Date of Service: 01/29/2025 EMG COMPLAINT: Left hand numbness. The patient had history of cubital tunnel release on the left recently. Patient had EMG conduction performed on the left side. Results are as follows. SENSORY NERVE CONDUCTION STUDIES: Left median to digit 2: Latency of 4.85 with amplitude 10.5. Prolonged latency with low amplitude. Left ulnar to digit 5: No response. Left radial to thumb: Latency of 2.4 with amplitude 25.1. MOTOR NERVE CONDUCTION STUDIES: Left median to APB: Latency of 5.55, which is prolonged, with amplitude 3.7, conduction velocity 40.7, which is low. Left ulnar to ADM: Latency of 6.0 with amplitude 0.4. Unable to obtain conduction velocity across the elbow, because nerve is severely damaged. EMG was performed on the left side: Left biceps, left triceps, left brachioradialis, left first dorsal interossei, left APB. Normal insertional activity. No fibs, positive sharp waves or fasciculations seen. Motor units with normal amplitude and duration. Recruitment pattern is, except on the left first dorsal interossei and left APB, there is discrete recruitment pattern noted. CONCLUSION: Electrodiagnostic evidence for severe carpal tunnel syndrome seen in the left upper extremity. Patient would benefit from carpal tunnel release on left as nerve is severely damaged. EMG evidence for severe ulnar neuropathy on left ( unable to obtain sensory nerve studies and very low ulnar motor ) . H/ O ulnar nerve release in the past . No studies available to compare, only RT hand EMG / NCV in the system Signature/Date: ANGELIC QUISPE #[id number] /MOS us Chris Riggs NP NEUROLOGY ORDERABLES Edited Resu lt - Final ESCRIPTION from Last 3 Months Additional Health Concerns Active Problems Noted Date Diagnosed Date Autogenerated Problem 02/23/2025 Insurance MEDICARE [facility] Care Teams Hand Scudder Relationship Specialty Start Date End Date Mariely Gold NP [address] [place] [address] PCP - General FAMILY PRACTICE 06/01/24 Gonzalez Santizo MD [address] [address] CARDIOVASCULAR DISEASE 08/09/24
--- OUTSIDE RECORDS SUMMARY | 2025-03-03 09:00 | XMS_ITS | Encounter Summary ---
Author Organization [employer] Address 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
--- OUTSIDE RECORDS SUMMARY | 2025-03-03 09:00 | XMS_ITS | Encounter Summary ---
Author Organization [employer] Address [address] [place] [address] Care Team Providers Care Aviation Project Manager Name Role Phone Anuj Richter MD Primary Care Provider Encounter Details Date Type Department Care Team (Late st Contact Info) Description 03/06/2004 Outpatient Historical [facility] [address] 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
--- OUTSIDE RECORDS SUMMARY | 2025-03-03 09:00 | XMS_ITS | Clinical Summary ---
Author Organization [facility] [email or web address] Address [address] [address] Care Team Providers Care Cold Mill Supervisor Name Role Phone Unavailable Primary Care Provider Unavailabl e Source Comments [facility] [email or web address],non-owned Affiliates and Associated Physician Practices is amultiple site organization consisting of ambulatory clinics and hospital sitesin [place], [place], [place] and [place]. This disclosure is being madepursuant to the Care Everywhere program and may not contain all information available regarding this patient. Last updated 18.[facility] [email or web address] Allergies No known active allergies Medications * Be aware that medications may not be up to date on this document. Alwaysverify current medications with the patient. multivitamin daily (THERAGRAN) tablet Take 1 Tab by mouth daily with food. Active hydrocodone-elvia taminophen (NORCO) 10-325 MG tablet Take 1 Tab by mouth every 4 hours as needed. Active valsartan-hydro chlorothiazide (DIOVAN HCT) 320-25 MG tablet Take 1 Tab by mouth every morning. Active ALPRAZolam (XANAX) 0.5 MG tablet Take 0.5 mg by mouth 3 times daily as needed. Active zolpidem (AMBIEN) 10 MG tablet Take 5 mg by mouth nightly as needed. Takes 1/2 tablet as needeed Active pantoprazole EC (PROTONIX) 40 MG tablet Take 40 mg by mouth once daily. Active oxycodone-aceta minophen (PERCOCET) 5-325 MG tablet Take 1-2 Tabs by mouth every 4 hours as needed for Pain. 90 Tab 0 01/06/2012 Active warfarin (COUMADIN) 4 MG tablet Take 1 Tab by mouth every evening. 30 Tab 0 01/06/2012 Active Active Problems Problem Noted Date Diagnosed Date Right knee DJD 01/04/2012 Social History Tobacco Use Types Packs/Day Years Used Date Smoking Tobacco: Former Cigarettes Q uit: 10/29/1977 Smokeless Tobacco: Current Alcohol Use Standard Drinks/Week Comments Yes 3.3 (1 standard drink = 0.6 oz p ure alcohol) Sex and Gender Information Value Date Recorded Sex Assigned at Not on file Legal Sex Male 1:11 PM DIRECTOR PHYSICAL THERAPY Gender Identity Not on file Sexual Orientation Not on file Last Filed Vital Signs Vital Sign Reading Time Taken Comments Blood Pressure 128/83 01/07/2012 7:35 AM CDT Pulse 78 01/07/2012 7:35 AM CDT Temperature 36.2 C (97.2 F) 01/07/2012 7:35 AM CDT Respiratory Rate 16 01/07/2012 7:35 AM CDT Oxygen Saturation 98% 01/07/2012 7:35 AM CDT Inhaled Oxygen Concentration - - Weight 85.7 kg (189 lb) 01/04/2012 11:44 AM CDT Height 170.2 cm (5' 7 ) 01/04/2012 11:44 AM CDT Body Mass Index 29.6 01/04/2012 11:44 AM CDT Plan of Treatment Health Maintenance Due Date Last Done Comments COLOGUARD (AGES 45-75) - COL ON CA SCREENING 1950 COLON MONITORING 1950 COLONOSCOPY - COLON CA SCREENING 1950 CT COLONOGRAPHY - COLON CA SCREENING 1950 Colorectal Cancer Screening 1950 FIT - COLON CA SCREENING 1950 FLEX SIG - COLON CA SCREENING 1950 LIPID TESTING 1950 HEPATITIS C SCREENING 04/25/1969 DTAP/TDAP/TD VACCINES (1 - Tdap) 1970 PNEUMOCOCCAL VACCINE 50+ (1 of 1 - PCV) 2001 ZOSTER VACCINE (1 of 2) 2001 AAA SCREENING 2016 COVID-19 VACCINE (1 - 2023-2 5 season) 2024 DEPRESSION SCREENING 10/18/2024 INFLUENZA VACCINE (Season Ended) 2025 Respiratory Syncytial Virus (RSV) Vaccine Pt: or over 60 yrs (1 - 1-dose 75+ series) 2026 HEPATITIS B VACCINE Aged Out No longe r eligible based on patient's age to complete this topic HIB VACCINE Aged Out No longer eligi ble based on patient's age to complete this topic HPV VACCINE Aged Out No longer eligi ble based on patient's age to complete this topic MENINGOCOCCAL (Group B) VACC INE SHARED DECISION-MAKING Aged Out No longer eligibl e based on patient's age to complete this topic MENINGOCOCCAL GROUPS A/C/Y/W VACCINE Aged Out No longer eligible b ased on patient's age to complete this topic Advance Directives * FULL RESUSCITATION (Latest Code Status on File) Date Activated Date Inactivated Comments 01/04/2012 8:36 AM 01/07/2012 11:24 PM
--- OUTSIDE RECORDS SUMMARY | 2025-03-03 09:00 | XMS_ITS | Continuity of Care Document ---
Author Organization [facility] Address [address] [place] [address] Phone Care Team Providers Care Housekeeping Laundry Worker Name Role Phone Administrative, Provider Unavailable Unavail able Procedures Procedure Date Medical testimony Ruy Work/Medical Disability Exam RJR 2011 I M E No Show Appointment Advance Directives Directive Yes / No Effective Date File Name No Information Encounters Encounter Description Practice Location Reason(s) For Visit Diagnoses Date Provider Providers Copied on Encounter [facility], [address] [place] [address], [id number], tel:[phone] [facility] No Information 2 Administrative Provider. [address] [place] [address], [id number], [place]. tel:[phone] Referring Provider: Werner Elkins, [address] [place] [address], [address] . tel:[phone] [facility], [address] [place] [address], [id number], [place] tel:[phone] [facility] LUMB/LUMBOSA C DISC DEGENJOINT REPLACED HIP 2 Administrative Provider. [address] [place] [address], [id number], [place]. tel:[phone] Referring Provider: Werner Elkins, [address] [place] [address], [place], [address] . tel:[phone] [facility], [address], [place], [place], [id number], tel:[phone] [facility] No Information 1 Administrative Provider. [address], [place], [place], [id number], [place]. tel:[phone] Family History Family Member Type Diagnosis Age At Onset No Information Payers Payer name Insurance type Covered constitution party ID Authoriza tion(s) No Information Social History Type Description Quantity Date Captured Comments Sex Male Smoking Status No Information Chief Complaint And Reason For Visit No Information Reason For Referral Reason For Referral No Information History Of Present Illness Encounter Date Complaint History Of Prese nt Illness No Information Functional Status Date Functional Assessmen t No Information Instructions Date Instruction Additional Infor mation No Information Assessments Type Assessment Date No Information Patient Care Teams Name Effective Dates (start - stop) Status Members No Information
== END 2025-03-03 08:56 | disposition home or self-care (01) ==
PROVIDERS: PCP Nurse Practitioner Family; Visit Provider Nurse Practitioner Family
DX: M19.011 Primary osteoarthritis, right shoulder (principal)
CPT/HCPCS: 73030

== ENCOUNTER 2025-10-15 11:27 | Outpatient (CLI) | payer MEDICARE, OTHER, SELFPAY ==
--- NOTE | ~2025-10-15 | XR_ITS ---
EXAMINATION: XR chest 2V 10/15/2025 11:42 INDICATION: Cough PROCEDURE: 2 view chest COMPARISON: 03/03/2024 FINDINGS: The lungs are clear. The cardiomediastinal silhouette is within normal limits. There are no pleural effusions. There is no pneumothorax suspected. IMPRESSION: 1: NO ACUTE CARDIOPULMONARY DISEASE. Reviewed, dictated and finalized at location O. RE ADMINISTRATOR
--- OUTSIDE RECORDS SUMMARY | 2025-10-15 12:06 | XMS_ITS | Encounter Summary ---
Author Organization [facility] [facility] Address [address] [place] [address] Care Team Providers Care Loan Secretary Name Role Phone Anuj Richter MD Primary Care Provider [phone] Encounter Details Date Type Department Care Team (Latest Contact Info) Description 09/25/1999 Outpatient Historical [facility] Matty Villaseñor MD Displacement of lumbar intervertebral disc without myelopathy (Primary Dx) Social History Tobacco Use Types Packs/Day Years Used Date Smoking Tobacco: Never Assessed Sex and Gender Information Value Date Recorded Sex Assigned at Not on file Legal Sex Male 3:45 AM AUTOMOTIVE EXHAUST EMISSIONS TECHNICIAN Gender Identity Not on file Sexual Orientation Not on file documented as of this encounter Plan of Treatment Not on file documented as of this encounter Visit Diagnoses Diagnosis Displacement of lumbar intervertebral disc without myelopathy- Primary documented in this encounter Care Teams Loan Secretary Relationship Specialty Start Date End Date Anuj Richter MD PCP - General Family Practice 06/12/11 documented as of this encounter
--- OUTSIDE RECORDS SUMMARY | 2025-10-15 12:06 | XMS_ITS | Clinical Summary ---
Author Organization [facility] Address [address] [place] [address] Phone Care Team Providers Care Under Presser Name Role Phone Anuj Richter MD Primary Care Provider Allergies No known active allergies Medications ALPRAZolam [...] Take 60 mg by mouth daily. Active valsartan-[place] chlorothiazide (DIOVAN HCT) 320-25 mg Oral tablet [...] Encounters Date Type Department Care Team Description 07/24/2025 External Device Data [facility] ABSTRACTION Provider, Abstract from Last 3 Months Social History Tobacco Use Types Packs/Day Years Used Date Smoking Tobacco: Former Cigarettes 0 Q uit: 06/12/1981 Alcohol Use Standard Drinks/Week Comments Yes 3.3 (1 standard drink = 0.6 oz p ure alcohol) Sex and Gender Information Value Date Recorded Sex Assigned at Not on file Legal Sex Male 3:45 AM GLOBAL PROGRAM MANAGER Gender Identity Not on file Sexual Orientation Not on file Last Filed Vital Signs Vital Sign Reading Time Taken Comments Blood Pressure 130/81 09/01/2011 9:27 AM GLOBAL PROGRAM MANAGER Pulse 90 09/01/2011 5:10 AM GLOBAL PROGRAM MANAGER Temperature 37.1 C (98.7 F) 09/01/2011 5:10 AM GLOBAL PROGRAM MANAGER Respiratory Rate 16 09/01/2011 5:10 AM GLOBAL PROGRAM MANAGER Oxygen Saturation 94% 09/01/2011 5:10 AM GLOBAL PROGRAM MANAGER Inhaled Oxygen Concentration - - Weight 82.7 kg (182 lb 6 oz) 08/27/2011 5:40 AM GLOBAL PROGRAM MANAGER Height 172.7 cm (5' 8) 08/18/2011 10:04 AM CDT Body Mass Index 27.73 08/18/2011 10:04 AM CDT Plan of Treatment Health Maintenance Due Date Last Done Comments DTAP/TDAP/TD VACCINES (1 - Tdap) 1970 COLORECTAL SCREENING 1996 Colorectal Cancer Screening 1996 FIT-DNA Q 3 years 1996 FIT/FOBT Q 1 year 1996 Flex Sig/CT Colonography Q 5 years 1996 PNEUMOCOCCAL VACCINE 50+ YEARS (1 of 1 - PCV) 04/30/20 ZOSTER VACCINE (1 of 2) 2001 INFLUENZA VACCINE (#1) 2025 RSV VACCINE (60+ or ) (1 - 1-dose 75+ series) 2026 Medical Devices Implanted Type Area Pediatric Nephrologist Device Identifier Shelf Expiration Date Model / Serial / Lot Log [id number] - Bone Recommind Biologicals - 1 - Infuse Protein Kit [id number] Implanted:Qty: 1 on 08/27/[address] [facility] Biological N/A: Spine Lumbar MEDTRONIC- SOFAMOR DANEK 02/15/2014 [id number] / N/A / [id number] S Log [id number] - Bone & Biologicals - 1 - Infuse Protein Kit [id number] Implanted:Qty: 1 on 08/27/[address] [facility] Biological Spine Lumbar MEDTRON[employer]- SOFAMOR DANEK 04/17/2013 [id number] / / [id number] N Log [id number] - Bone & Biologicals - 1 - Allgrft Spcr Lmnry Alif 9mm [id number] Implanted:Qty: 1 on 08/27/[address] [facility] Bone Spine Lumbar MUSCULOSKELETAL TRANSPLANT FOU 06/06/2014 [id number] / [id number] / Log [id number] - Bone & Biologicals - 1 - Allgrft Spcr Lmnry Alif 11mm [id number] Implanted:Qty: 1 on 08/27/[address] [facility] Bone N/A: Spine Lumbar MUSCULOSKELETAL TRANSPLANT FOU 08/23/2015 [id number] / [id number] / Log [id number] - Biomet Hip Primary Acetabular Components - 1 - Screw Canc Lopro 6.5x35mm [id number] Implanted:Qty: 1 on 06/16/[address] [facility] Hip Left: Hip BIOMET INC 01/15/2021 [id number] / / [id number] Log [id number] - Biomet Hip Primary Acetabular Components - 1 - Shell Ringloc Acet 54mm Sz 24 [id number] Implanted:Qty: 1 on 06/16/[address] [facility] Hip Left: Hip [employer] 04/16/2021 [id number] / / [id number] Log [id number] - Biomet Hip Primary Acetabular Components - 1 - Liner Acet Ringloc 40mm Sz 24 [id number] Implanted:Qty: 1 on 06/16/[address] [facility] Hip Left: Hip [employer] INC 03/17/2016 [id number] / / [id number] Description:Epoly liner is n ot part of total hip cap pricing,will be charged separately. Log [id number] - Biomet Hip Primary Femoral Components - 1 - Head Biolox Delta Optn 40mm [id number] Implanted:Qty: 1 on 06/16/[address] [facility] Hip Left: Hip [employer] INC 04/16/2021 [id number] / / [id number] Log [id number] - Biomet Hip Primary Femoral Components - 1 - Head Fem Biolox Option Minus 6 [id number] Implanted:Qty: 1 on 06/16/[address] [facility] Hip Left: Hip BI[employer]ET INC 07/17/2020 [id number] / / [id number] Description:Option sleeve is not part of total hip cap pricing,will be charged separately. Pin Fixation Temp [id number] Implanted:Qty: 2 on 08/27/[address] [facility] Pin SYNTHES-STRATEC- SPINAL 03.161.05 7 / / Log [id number] - Synthes Spine Antegra System - 1 - Plate Lumbar Antegra 41mm 04.102.141 Implanted:Qty: 1 on 08/27/[address] [facility] Plate Spine Lumbar SYNTHES-STRATEC- SPINAL 04.102.14 1 / / Description:load 36sterilize d aug Log [id number] - Synthes Spine Antegra System - 1 - Plate Antegra Sacral 1lvl 04.103.137 Implanted:Qty: 1 on 08/27/[address] [facility] Plate Spine Lumbar SYNTHES-STRATEC- SPINAL 04.103.13 7 / / Description:load 36sterilize d aug Log [id number] - Synthes Spine Antegra System - 1 - Screw Canc Loc 6.5x28mm 04.202.028 Implanted:Qty: 8 on 08/27/[address] [facility] Screw Spine Lumbar SYNTHES-STRATEC- SPINAL 04.202.02 8 / / Description:load 36sterilize d aug Femur Implanted:Qty: 1 on 06/16/[address] [facility] Left: Hip BIOMET INC 09/16/2020 [id number] / / [id number] Description:Taperloc complet e primary, standard offset Insurance [facility] BLUE ACCESS/TRUE BLUE PPO Advance Directives For more information, please contact: [phone] * Full Code (Latest Code Status on File) Date Activated Date Inactivated Comments 08/27/2011 7:01 PM 09/01/2011 2:46 PM * Full Code Date Activated Date Inactivated Comments 08/27/2011 6:02 AM 08/27/2011 7:01 PM * Full Code Date Activated Date Inactivated Comments 06/16/2011 5:31 PM 06/18/2011 6:28 PM * Full Code Date Activated Date Inactivated Comments 06/16/2011 12:34 PM 06/16/2011 5:31 PM Care Teams Under Presser Relationship Specialty Start Date End Date Anuj Richter MD PCP - General Family Practice 06/12/11
--- OUTSIDE RECORDS SUMMARY | 2025-10-15 12:06 | XMS_ITS | Encounter Summary ---
Author Organization [facility] Address [address] [place] [address] Care Team Providers Care Search Engineer Name Role Phone Anuj Richter MD Primary Care Provider Encounter Details Date Type Department Care Team (Late st Contact Info) Description 03/06/2004 Outpatient Historical [facility] Support Serv. (Adt Cardiology[facility]) [address] 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
--- OUTSIDE RECORDS SUMMARY | 2025-10-15 12:06 | XMS_ITS | Clinical Summary ---
Author Organization [facility] [employer] Address [address] [place] [address] Care Team Providers Care Nylon Machine Operator Name Role Phone Unavailable Primary Care Provider Unavailabl e Source Comments [facility] [employer],non-owned Affiliates and Associated Physician Practices is amultiple site organization consisting of ambulatory clinics and hospital sitesin [place], [place], [place] and [place]. This disclosure is being madepursuant to the Care Everywhere program and may not contain all information available regarding this patient. Last updated 18.[facility] [employer] Allergies No known active allergies Medications * [...] Smoking Tobacco: Former Cigarettes 0 Q uit: 10/29/1977 Smokeless Tobacco: Current Alcohol Use Standard Drinks/Week Comments Yes 3.3 (1 standard drink = 0.6 oz p ure alcohol) Sex and Gender Information Value Date Recorded Sex Assigned at Not on file Legal Sex Male 1:11 PM PATTERN DESIGNER Gender Identity Not on file Sexual Orientation [...] 11:44 AM CDT Height 170.2 cm (5' 7) 01/04/2012 11:44 AM CDT Body Mass Index [...] (1 of 2) 2001 AAA SCREENING 2016 DEPRESSION SCREENING 10/18/2024 COVID-19 VACCINE (1 - 2024-2 6 season) 2025 INFLUENZA VACCINE (#1) 2025 Respiratory Syncytial Virus (RSV) Vaccine Pt: [...]
--- OUTSIDE RECORDS SUMMARY | 2025-10-15 12:06 | XMS_ITS | Clinical Summary ---
Author Organization [facility] Address [address] [place] [address] Care Team Providers Care Surgical Garment Assembly Supervisor Name Role Phone Anuj Richter MD Primary Care Provider [phone] Allergies No known active allergies Medications ALPRAZolam (XANAX) 1 MG tablet Take 1 mg by mouth 3 times daily as needed for Anxiety Active fluticasone (FLONASE) 50 MCG/ACT nasal spray 1 [place] by Nasal route daily Active valsartan-hydro chlorothiazide (DIOVAN-HCT) 320-25 MG per tablet Take 1 Tab by mouth daily Active pantoprazole (PROTONIX) 40 MG packet Take 40 mg by mouth daily Active acetaminophen (TYLENOL) 500 MG tablet Take 1,000 mg by mouth every 6 hours as needed for Pain Active Ibuprofen (ADVIL) 200 MG CAPS capsule Take 200 mg by mouth every 6 hours as needed for Pain Active Active Problems Problem Noted Date Diagnosed Date Spondylosis of lumbosacral r egion without myelopathy or radiculopathy 10/23/2016 Abdominal wall pain 10/23/2016 Stress 10/23/2016 Lumbar degenerative disc disease 08/05/2016 Iliopsoas abscess 08/05/2016 Abscess of abdominal cavity 07/27/2016 Overview (09/01/2018): IMO 10.1.2018 Regulatory Update Intractable abdominal pain 07/16/2016 Lumbar post-laminectomy syndrome 06/03/2016 Radicular pain 06/03/2016 Depression 06/03/2016 Family History Medical History Relation Name Comments No Known Problems Brother No Known Problems Daughter No Known Problems Father No Known Problems Mother No Known Problems Other No Known Problems Sister No Known Problems Son Relation Name Status Comments Brother Daughter Father Mother Other Sister Son Social History Tobacco Use Types Packs/Day Years Used Date Smoking Tobacco: Never Alcohol Use Standard Drinks/Week Comments No 0 (1 standard drink = 0.6 oz pur e alcohol) Alcohol Use Answer Date Recorded Frequency of Alcohol Consumption Not on file 04/02/2024 Average Number of Drinks Not on file 024 Frequency of Binge Drinking Not on file 03/18 Alcohol Use Status No 04/02/2024 Average alcohol consumption Not on file 03/18 Sex and Gender Information Value Date Recorded Sex Assigned at Not on file Legal Sex Male 2:32 PM CDT Gender Identity Not on file Sexual Orientation Not on file Occupation Industry Job Start Date Job End Date retired Not on file Not on file Not on file Last Filed Vital Signs Vital Sign Reading Time Taken Comments Blood Pressure 184/96 10/23/2016 10:11 AM CLINICAL SUPPORT TECH Pulse 88 10/23/2016 10:11 AM CLINICAL SUPPORT TECH Temperature 36.7 C (98 F) 10/23/2016 10:11 AM CLINICAL SUPPORT TECH Respiratory Rate 18 10/23/2016 10:11 AM CLINICAL SUPPORT TECH Oxygen Saturation 98% 10/23/2016 10:11 AM CLINICAL SUPPORT TECH Inhaled Oxygen Concentration - - Weight 77 kg (169 lb 12.8 oz) 10/23/2016 10:11 A M CLINICAL SUPPORT TECH Height 170.2 cm (5' 7) 10/23/2016 10:11 AM CLINICAL SUPPORT TECH Body Mass Index 26.59 10/23/2016 10:11 AM CLINICAL SUPPORT TECH Plan of Treatment Health Maintenance Due Date Last Done Comments Hepatitis C Screening ages 1 8 to 79 once 1951 YEARLY WELLNESS EXAM 1954 ADULT TETANUS 1970 LIPID TESTING 1986 Colon Cancer Screening 1996 Pneumococcal Vaccine: 50 and over (1 of 1 - PCV) 2001 Zoster Vaccine (Recombinant Vaccine) (1 of 2) 2001 Fall Risk Assessment 2016 DEPRESSION SCREENING 06/03/2017 06/03/2016 Influenza Vaccine 05/18/2025 COVID-19 Immunization (1 - 2 024-25 season) 2025 RSV Vaccines (1 - 1-dose 75+ series) 2026 HEPATITIS A VACCINES Aged Out No long er eligible based on patient's age to complete this topic HEPATITIS B VACCINES Aged Out No long er eligible based on patient's age to complete this topic HIB VACCINES Aged Out No longer eligi ble based on patient's age to complete this topic HPV VACCINES Aged Out No longer eligi ble based on patient's age to complete this topic IPV VACCINES Aged Out No longer eligi ble based on patient's age to complete this topic MENINGOCOCCAL VACCINE Aged Out No rylan sanju eligible based on patient's age to complete this topic Meningococcal B Vaccine Aged Out No l onger eligible based on patient's age to complete this topic ROTAVIRUS VACCINES Aged Out No longer eligible based on patient's age to complete this topic Insurance MEDICARE [facility] MEDICARE [facility] [place] [place] [address] Advance Directives * Full Code (Latest Code Status on File) Date Activated Date Inactivated Comments 07/27/2016 3:21 PM 08/01/2016 1:12 PM Care Teams Surgical Garment Assembly Supervisor Relationship Specialty Start Date End Date Anuj Richter MD PCP - General Family Medicine 05/26/16
--- OUTSIDE RECORDS SUMMARY | 2025-10-15 12:06 | XMS_ITS | Encounter Summary ---
Author Organization [facility] Address [facility] [place] [address] Care Team Providers Care Multimedia Artist Name Role Phone Mariely Gold METAL DRESSER Primary Care Provider [phone] Gonzalez Santizo MD Unavailable [phone] Encounter Details Date Type Department Care Team (Late st Contact Info) Description 10/02/2024 Hospital Orders Only [facility] [address] [facility] [address] [place] [address] Carline Rocha, OT [address] [place], [place] [id number] Social History Tobacco Use Types Packs/Day Years Used Date Smoking Tobacco: Never Smokeless Tobacco: Former Chew Alcohol Use Standard Drinks/Week Comments Yes 0 (1 standard drink = 0.6 oz pur e alcohol) 3-4 beers/week Sex and Gender Information Value Date Recorded Sex Assigned at Male 11/15/2024 5:23 AM VETERINARY X RAY OPERATOR Legal Sex Male 10:10 AM CDT Gender Identity Male 08/07/2024 11:19 AM CDT Sexual Orientation Not on file documented as of this encounter Plan of Treatment Not on file documented as of this encounter Visit Diagnoses Not on filedocumented in this encounter Care Teams Multimedia Artist Relationship Specialty Start Date End Date Mariely Gold NP [address] [place] [address] PCP - General FAMILY PRACTICE 8/15/24 Gonzalez Santizo MD [address] [place] [address] CARDIOVASCULAR DISEASE 08/09/24 documented as of this encounter
--- OUTSIDE RECORDS SUMMARY | 2025-10-15 12:06 | XMS_ITS | Encounter Summary ---
Author Organization [facility] Address [facility] [place] [address] Care Team Providers Care Absorption Plant Operator Name Role Phone Mariely Gold HR RECRUITER Primary Care Provider [phone] Gonzalez Santizo MD Unavailable [phone] Encounter Details Date Type Department Care Team (Late st Contact Info) Description 03/23/2025 [employer] Message Enc [facility] - [place] [address] [facility] [employer] Provider wrist picture Social History Tobacco Use Types Packs/Day Years Used Date Smoking Tobacco: Never Smokeless Tobacco: Former Chew Alcohol Use Standard Drinks/Week Comments Yes 3.3 (1 standard drink = 0.6 oz p ure alcohol) PHQ-2 Answer Date Recorded Patient Health Questionnaire-2 Score 0 10/30/2024 Sex and Gender Information Value Date Recorded Sex Assigned at Male 11/15/2024 5:23 AM PALM GATHERER Legal Sex Male 10:10 AM CDT Gender Identity Male 08/07/2024 11:19 AM CDT Sexual Orientation Not on file documented as of this encounter Plan of Treatment Not on file documented as of this encounter Visit Diagnoses Not on filedocumented in this encounter Care Teams Absorption Plant Operator Relationship Specialty Start Date End Date Mariely Gold NP [address] [place] [address] PCP - General FAMILY PRACTICE 06/01/24 Gonzalez Santizo MD [address] [place] [address] CARDIOVASCULAR DISEASE 08/09/24 documented as of this encounter
--- OUTSIDE RECORDS SUMMARY | 2025-10-15 12:06 | XMS_ITS | Encounter Summary ---
Author Organization [facility] Address [address] [place] [address] Care Team Providers Care Press Tender Short Goods Name Role Phone Anuj Richter MD Primary Care Provider Encounter Details Date Type Department Care Team (Latest Contact Info) Description 03/13/2004 Outpatient Historical [facility] Anuj Paulino MD [address] [place] [address] LUMBAR DISC DISPLACEMENT (Primary Dx) Social History Tobacco Use Types Packs/Day Years Used Date Smoking Tobacco: Never Assessed Sex and Gender Information Value Date Recorded Sex Assigned at Not on file Legal Sex Male 3:45 AM GLOBAL SALES DIRECTOR Gender Identity Not on file Sexual Orientation Not on file documented as of this encounter Plan of Treatment Not on file documented as of this encounter Visit Diagnoses Diagnosis Displacement of lumbar intervertebral disc without myelopathy- Primary documented in this encounter Care Teams Press Tender Short Goods Relationship Specialty Start Date End Date Anuj Richter MD PCP - General Family Practice 06/12/11 documented as of this encounter
--- OUTSIDE RECORDS SUMMARY | 2025-10-15 12:06 | XMS_ITS | Encounter Summary ---
Author Organization [employer] Address 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
--- OUTSIDE RECORDS SUMMARY | 2025-10-15 12:06 | XMS_ITS | Encounter Summary ---
Author Organization [facility] Address [address] [place] [address] Care Team Providers Care Supervisor Files Name Role Phone Anuj Richter MD Primary Care Provider Encounter Details Date Type Department Care Team (Latest Contact Info) Description 02/20/2004 Outpatient Historical [facility] Anuj Paulino MD [address] [place] [address] LUMBAR DISC DISPLACEMENT (Primary Dx) Social History Tobacco Use Types Packs/Day Years Used Date Smoking Tobacco: Never Assessed Sex and Gender Information Value Date Recorded Sex Assigned at Not on file Legal Sex Male 3:45 AM MERCHANDISING MANAGER Gender Identity Not on file Sexual Orientation Not on file documented as of this encounter Plan of Treatment Not on file documented as of this encounter Visit Diagnoses Diagnosis Displacement of lumbar intervertebral disc without myelopathy- Primary documented in this encounter Care Teams Supervisor Files Relationship Specialty Start Date End Date Anuj Richter MD PCP - General Family Practice 06/12/11 documented as of this encounter
--- OUTSIDE RECORDS SUMMARY | 2025-10-15 12:06 | XMS_ITS | Clinical Summary ---
Author Organization [facility] Address [address] [place] [address] Care Team Providers Care Tier Over Name Role Phone Mariely Gold NP Primary Care Provider + [phone] Gonzalez Santizo MD Unavailable [phone] Allergies No known active allergies Medications finasteride [...] mouth nightly at bedtime. 4 Active Multiple Vitamins-Gentry als (CENTRUM SILVER ULTRA MENS OR) Take 1 tablet by mouth daily. Active rivaroxaban (XARELTO) 20 MG Tab tablet Take 1 tablet (20 mg total) by mouth daily with supper. Take with food Active oxyCODONE-acet aminophen (PERCOCET) 10-325 MG tablet TAKE 1 TABLET BY MOUTH IN THE MORNING AND TAKE 1 TABLET IN THE EVENING 5 Active sildenafil (VIAGRA) 100 MG tablet Take 1 tablet (100 mg total) by mouth daily. 5 Active predniSONE (DELTASONE) 20 MG tablet 1 tablet (20 mg total) daily. Dose pack, has not started 5 Active HYDROcodone-ac etaminophen (NORCO) 5-325 MG tabletIndicati ons:Acute Pain < 7 Day Supply Take 1-2 tablets by mouth every 6 (six) hours as needed for Pain. Indications: Acute Pain < 7 Day Supply For Moderate Pain 21 tablet 5 Active naloxone (NARCAN) 4 MG/0.1ML nasal spray 1 spray by Nasal route as needed for Opioid reversal. may repeat every 2 to 3 minutes in alternating nostrils until medical assistance becomes available 1 each 5 026 Active celecoxib (CELEBREX) 200 MG capsule TAKE 1 CAPSULE 200 MG ORALLY TWICE A DAY NEEDED FOR PAIN 5 Active methylPREDNISo SUSSY [place], (MEDROL DOSEPAK) 4 MG tabletIndicati ons:Cubital tunnel syndrome on left Take 1 tablet (4 mg total) by mouth see administration instructions. Follow package taper directions 1 each 5 Active Active Problems Problem Noted Date Diagnosed Date Cubital tunnel syndrome on right 11/01/2024 Cubital tunnel syndrome on left 09/08/2024 Arthritis of knee 08/08/2024 Arthritis of right wrist 08/08/2024 Disorder of rotator cuff 08/08/2024 History of total knee replacement 08/08/2024 Dilated cardiomyopathy 04/05/2024 Obstructive sleep apnea syndrome 03/09/2024 Paroxysmal atrial fibrillation 03/09/2024 Anxiety 10/27/2021 Arthritis 10/27/2021 Spondylosis of lumbosacral r egion without myelopathy or radiculopathy 10/23/2016 Lumbar degenerative disc disease 08/05/2016 Depression 06/03/2016 Lumbar post-laminectomy syndrome 06/03/2016 Radicular pain 06/03/2016 Right knee DJD 01/04/2012 Osteoarthritis of hip 06/16/2011 Immunizations Immunization Administration Dates Next Due Influenza Adult (Generic) 07/27/2021 MODERNA COVID-19 (12+) MRNA, LNP-S, PF, 100 MCG/ 0.5 ML DOSE 09/17/2021,02/04/2021,01/16/2021 Family History Medical History Relation Comments Alcohol Abuse Father Arthritis Mother Relation Status Comments Father Alive Mother Alive Social History Tobacco Use Types Packs/Day Years Used Date Smoking Tobacco: Never Smokeless Tobacco: Former Chew Tobacco Cessation:Counseling Given: No Alcohol Use Standard Drinks/Week Comments Yes 3.3 (1 standard drink = 0.6 oz p ure alcohol) Occasionally PHQ-2 Answer Date Recorded Patient Health Questionnaire-2 Score 0 10/30/2024 Sex and Gender Information Value Date Recorded Sex Assigned at Male 11/15/2024 5:23 AM PHYSICAL DIRECTOR Legal Sex Male 10:10 AM CDT Gender Identity Male 08/07/2024 11:19 AM CDT Sexual Orientation Not on file Last Filed Vital Signs Vital Sign Reading Time Taken Comments Blood Pressure 160/81 04/24/2025 8:11 AM CDT Pulse 62 04/24/2025 8:11 AM CDT Temperature 36.2 C (97.2 F) 04/24/2025 7:55 AM CDT Respiratory Rate 16 03/07/2025 2:20 PM CDT Oxygen Saturation 97% 03/07/2025 2:20 PM CDT Inhaled Oxygen Concentration - - Weight 84.4 kg (186 lb) 04/24/2025 7:55 AM CDT Height 170.2 cm (5' 7) 04/24/2025 7:55 AM CDT Body Mass Index 29.13 04/24/2025 7:55 AM CDT Plan of Treatment Health Maintenance Due Date Last Done Comments Colorectal Cancer Screening Colonoscopy (10 Years) 1950 Hepatitis C 1969 DTaP, Tdap and Td Vaccines ( 1 - Tdap) 1970 Pneumococcal Vaccine: 50+ Years (1 of 1 - PCV) 2001 Zoster Vaccines (1 of 2) 2001 Annual Medicare Wellness Visit 2016 COVID-19 Vaccine (4 - 2024-2 6 season) 2025 09/17/2021, 02/04/2021, 01/16/2021 Influenza Adult (#1) 2025 07/27/2021 RSV Immunization or 60+ Years (1 - 1-dose 75+ series) 2026 PHQ-2 (Physician [place]) Completed 10/30/2024 Hepatitis A Vaccines Aged Out No long er eligible based [...] age to complete this topic Insurance MEDICARE [facility] Care Teams Tier Over Relationship Specialty Start Date End Date Mariely Gold NP [address] [place] [address] PCP - General FAMILY PRACTICE 06/01/24 Gonzalez Santizo MD [address] [id number] CARDIOVASCULAR DISEASE 08/09/24
--- OUTSIDE RECORDS SUMMARY | 2025-10-15 12:06 | XMS_ITS | Data Portability ---
Author Organization [place] [facility] [employer] Main Office Address [address] [place] [address] Care Team Providers Care Nuclear Medicine Specialist Name Role Phone OSITO WATSON Primary Care Provider OSITO WATSON Referring Provider Assessment Encounter Date Assessment Date Assessment LastModified by Organization Details LastModified Time 03/09/2024 03/09/2024 I have reconcile d the patient's medications post their discharge from inpatient facility. Not available 03/09/2024 10:33:54 04/03/2024 04/03/2024 Assessment: Moderate OSAHS, AHI = 20 CSA from oxycodone PLMD Plan: The following were reviewed and explained to the patient: primary care/referral note [facility] home sleep study 03/23/24 AHI = 20, [...] Follow-up: 1 week after titration sleep study Not available 04/03/2024 10:35:17 04/10/2024 04/10/2024 Assessment: Moderate OSAHS, AHI = 20 CSA from oxycodone/CHF PLMD Plan: The following were reviewed and explained to the patient: [facility] home sleep study 03/23/24 AHI = 20, [...] carrier. Patient will setup an appointment with [facility] for supplies and pressure adjustments. A [...] were reviewed and explained to the patient: [facility] home sleep study 03/23/24 AHI = 20, [...] at 20 minutes. 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 Patient is benefiting from PAP therapy. Encouraged [...] carrier. Patient will setup an appointment with [facility] for supplies and pressure adjustments. A [...] Organization Details Last Modified Time Details Appointments None recorded. Lab None recorded. Referral None recorded. Procedures None recorded. Surgeries None recorded. Imaging polysomnogr am, titration study - No auth needed 2023 024 [email or web address] 25 [facility], [address] [place], [address], 08:41:42 home sleep study - *Please call pt to schedule* 2023 [email or web address] 256 [facility], [address] [place], [address], 10:33:19 Medication Orders oxycodone-a cetaminophe n 10 mg-325 mg tablet 2023 ALFONZO Not available 11:11:14 alprazolam 0.5 mg tablet 2023 ALFONZO Not available 13:57:37 Patient TargetsNo targets recorded. Patient Instructions Encounter Date Encounter Id Patient Instructions Last Modified By Organization Details Last Modified Time 03/09/2024 [id number] Thank you for your visit to our [...] Not available 03/09/2024 10:33:54 Homebound Status : Required Home Health Services: Durable Medical Equipment needed: Billing Guidelines CPT code 41590- Transitional Care Management services with moderate medical decision complexity (aejo-jz-rlqn visit within 14 days of discharge). CPT code 92445- Transitional Care Management services with high medical decision complexity (owqq-zc-ypuj visit within 7 days of discharge). Not available 03/09/2024 10:33:54 Reason for Referral None Reported. Results Created Date Observation Date Name Description Value Unit Range Abnormal Flag Note LastModifiedBy Organization Detail LastModifiedTime 01/14/20 25 01/13/2025 COLOG UARD cologuard result Cancel led - Order d not applic able Not Available [facility] [address], [place], [address], 01/13/2025 09:20:53 03/03/20 24 03/03/2024 XR, chest No observ ation record ed. [address] [facility], [place], [address], 03/03/2024 13:45:12 03/04/20 24 03/03/2024 US, echoc ardio gram No observ ation record ed. [address], [place], [address], 03/04/2024 18:38:58 03/06/20 24 03/06/2024 US, echoc ardio gram No observ ation record ed. [address], [place], [address], 03/06/2024 16:16:56 03/29/20 24 03/23/2024 home sleep study No observ ation record ed. [facility] Not Available 2023 16:54:17 Result Notes None recorded. Problems Name Problem SNOMED Code Status Onset Date Resolution Date Notes Provider Name and Address Organization Details Recorded Time Arthritis 4656352 Active 2021 Not Available [facility] 4 18:32:46 Anxiety 40790319 Active 2021 Not Available [facility] 4 18:32:46 Degeneration of lumbar intervertebral disc 00357120 Active 2022 Not Available [facility] 4 18:32:46 Increased liver function 59988233 Active 2022 Not Available 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 Procedures Surgical History Date Name Laterality Status Provider Name and Address Organization Details Recorded Time 03/09/20 24 Transitional_Car e_Management completed MICHAEL Wood [address], [place] [address], [place], [address], [employer] 03/09/2024 10:34:30 12/09/19 24 Wound Care-Podiatry completed Colton Caldwell DPM [address], [place], [address], [facility] 12/09/2023 12:57:24 11/29/19 24 Wound Care-Podiatry completed Colton Caldwell DPM [address], [address], [place], [address], [facility] 11/29/2023 10:23:34 11/16/19 24 Partial Nail [employer] Matrixectomy-Rig ht completed Colton Caldwell DPM [address], [place], [address], [employer] 11/16/2023 11:23:08 11/16/19 24 Partial Nail [employer] Matrixectomy-Lef t completed Colton Caldwell DPM [address], [place], [address], [employer] [facility] 11/16/2023 11:22:55 03/25/20 23 Nail Debridement completed Colton Caldwell DPM [address], [place], [address], [employer] [facility] 03/25/2023 10:27:08 Lumbar Spine Surgery completed Not Available [facility] 12/17/2022 00:24:42 Total knee arthroplasty completed Not Available [facility] 12/17/2022 00:24:42 EGD completed Not Available [facility] 11/2022 00:24:42 Total knee arthroplasty completed Not Available [facility] 12/17/2022 00:24:42 operation on lumbar spine completed Not Available [facility] 12/17/2022 00:24:42 Colonoscopy completed Not Available [facility] 12/17/2022 00:24:42 total replacement of hip completed Not Available [facility] 12/17/2022 00:24:42 Abdominal Surgery completed Not Available [facility] 12/17/2022 00:24:42 Abdominal Surgery completed Not Available [facility] 12/17/2022 00:24:42 repair of inguinal hernia completed Not Available [facility] 12/17/2022 00:24:42 Imaging Results None recorded. Procedure Notes None recorded. Medical Equipment None [...] Available Not Available Not Available amoxicillin 875 mg-potassiu m clavulanate 125 mg tablet 07/11 completed [...] weight Body temperature Heart rate Oxygen saturation Systolic And Diastolic Provider Name and Address Organization Details Last Updated DateTime 4 170.18 cm 28.2 kg/m2 46631.6 3 g 97.1 [degF] 71 /min 98 % 128/82 mm[Hg] Lorena Curtis RN [facility] [employer] 4 10:28:13 Date Recorded Heart rate Respiratory rate Provider Ryan austin and Address Organization Details Last Updated DateTime 04/03/2024 68 /min 15 /min Michi Cardenas MD [address] [facility] [address], [place], [address], [facility] [employer] 04/03/2024 10:35:51 Date Recorded Body height Body mass index (BMI) Body weight Oxygen saturation Heart rate Body temperature Systolic And Diastolic Provider Name and Address Organization Details Last Updated DateTime 4 170.18 cm 29.3 kg/m2 90328.7 7 g 97 % 68 /min 97.3 [degF] 124/68 mm[Hg] Shivani Schmidt CMA [facility] [employer] 09:41:13 Date Recorded Heart rate Respiratory rate Provider N norman and Address Organization Details Last Updated DateTime 04/10/2024 77 /min 15 /min Michi Cardenas MD [address] [facility], [address], [address], [facility] [employer] [facility] 04/10/2024 11:51:40 Date Recorded Body height Body mass index (BMI) Body weight Body temperature Heart rate Oxygen saturation Systolic And Diastolic Provider Name and Address Organization Details Last Updated DateTime 4 170.18 cm 29.1 kg/m2 53713.1 8 g 97.2 [degF] 77 /min 96 % 118/68 mm[Hg] Shivani Schmidt CMA [facility] [employer] [facility] 11:09:59 Date Recorded Heart rate Respiratory rate Provider N norman and Address Organization Details Last Updated DateTime 07/11/2024 64 /min 14 /min Michi Cardenas MD [address], [address], [facility] [employer] [facility] 07/11/2024 11:21:10 Date Recorded Body height Body mass index (BMI) Body weight Body temperature Heart rate Oxygen saturation Systolic And Diastolic Provider Name and Address Organization Details Last Updated DateTime 4 170.18 cm 29.8 kg/m2 74613.5 5 g 98.3 [degF] 64 /min 95 % 128/70 mm[Hg] Faina Corea MA [facility] [employer] [facility] 11:10:16 Social History Question Answer Notes LastModified by Organizat ion Details LastModified Time Tobacco Smoking Status Former Smoker quit 40+ years ago Gisella eddy, [facility] [employer] [facility] 11/16/2023 09:20:50 Are You Blind Or Do You Have Difficulty Seeing? No Information not available 11/16/2023 What Is Your Level Of Caffeine Consumption? Occasional [id number] Information not available 12/17/2022 In The 14 [...] Type Of Diet Are You Following? REGULAR [id number] Information not available 12/17/2022 Do You Have [...] available 07/11/2024 What Is Your Relationship Status? [id number] Information not available 12/17/2022 Do You Use [...] Functional Status Question Answer Note LastModified by Organizat ion Details LastModified Time Do you use any illicit or recreational drugs? No Information not available 11/16/2023 Do you or have you ever used any other forms of tobacco or nicotine? No Information not available 11/16/2023 What is your level of alcohol consumption? Moderate [id number] Information not available 12/17/2022 Are you currently employed? Retired Information not available 07/11/2024 Have you been exposed to chemicals or toxins? not that aware of Information not available 07/11/2024 Do you have transportation difficulties? No Information not available 11/16/2023 Are you able to walk independently without assistance or assistive devices? YESWOREST Information not available 11/16/2023 Do you have difficulty doing errands alone? No Information not available 11/16/2023 Are you able to care for yourself independently? Yes Information not available 11/16/2023 Do you have difficulty dressing, bathing, grooming, or toileting? No Information not available 11/16/2023 What is your exercise level? Occasional [id number] Information not available 12/17/2022 Mental Status Question Answer Note LastModified by Organizat ion Details LastModified Time Do you feel stressed (tense, restless, nervous, or anxious, or unable to sleep at night)? [id number] Information not available 11/16/2023 Do you have difficulty concentrating, remembering or making decisions? No Information no t available 11/16/2023 Family History Relationship Description Onset Age of this Age Resolved Age Notes LastModified by Organization Details LastModified Time Father Cerebrovascu lar accident [id number] Not available 12/17/2022 00:24:43 Sister Crohn's disease [id number] Not available 12/17/2022 00:24:43 Maternal Grandmother Dementia Not available 04/03 10:25:27 Maternal Grandfather Alcoholism Not available 10:25:44 Paternal Grandfather Alcoholism Not available 10:27:18 Brother Atrial fibrillation Not available 10:27:29 Medical History Condition Response ARTHRITIS Y ANXIETY DISORDER Y BACK / NECK PROBLEMS Y Immunizations Vaccine Type Date Status Note Provider Nam e and Address Organization Details Recorded Time COVID-19, mRNA, LNP-S, PF, 100 mcg/0.5mL dose or 50 mcg/0.25mL dose 1 completed Not Available [facility] 11/18/2023 18:32:47 Influenza, split virus, quadrivalent, preservative 1 completed Not Available [facility] 11/18/2023 18:32:46 COVID-19, mRNA, LNP-S, PF, 100 mcg/0.5mL dose or 50 mcg/0.25mL dose 1 completed Not Available [facility] 11/18/2023 18:32:47 COVID-19, mRNA, LNP-S, PF, 100 mcg/0.5mL dose or 50 mcg/0.25mL dose 1 completed Not Available [facility] 11/18/2023 18:32:46 Past Encounters Encounter ID Performer Location Encounter Start Date Encounter Closed Date Diagnosis/Indication Diagnosis SNOMED-CT Code Diagnosis ICD10 Code Diagnosis IMO Codes Diagnosis Note [id number] Osito Watson MD [facility] Primary Care [place] [address] [place] [address] [address] [place] [address] 10/28/2021 00:00:00 10/28/2021 11:36:26 [id number] Osito Watson MD [facility] Primary Care [place] [address] [place] [address] [address] [place] [address] 12/15/2021 00:00:00 12/15/2021 09:09:16 [id number] sOito Watson MD [facility] Primary Care [place] [address] [facility] [address] [place] [address] 03/23/2022 00:00:00 03/23/2022 10:31:40 [id number] KAMERON Lezama [facility] Primary Care [place] [address] [facility] [address] [place] [address] 05/04/2022 00:00:00 05/04/2022 13:50:44 [id number] Osito Watson MD [facility] Primary Care [place] [address] [facility] [address] [place] [address] 09/16/2022 00:00:00 09/16/2022 10:02:14 [id number] Osito Watson MD [facility] Primary Care [address] [place] [address] 09/23/2022 00:00:00 10/15/2022 11:34:50 [id number] Anuj Thomson MD [facility] Urology [address] [address] 09/24/2022 00:00:00 09/24/2022 10:54:11 [id number] Osito Watson MD [facility] Primary Care [address] [place] [address] 12/23/2022 09:15:03 12/23/2022 09:52:32 Degeneration of lumbar intervertebral disc 19361269 M51.36 remain off gabapentin due to med s/emay d/c mobic and use ibuprofen otcwill increase hydrocodon e/apap to 3 per day prn severe painPt understand s this medication has risk for abuse/depe ndence and agrees to take it only as prescribed and to guard from loss/theft [place] prescripti on monitoring website reviewed [id number] Osito Watson MD [facility] Primary Care [address] [address] 02/03/2023 09:19:30 02/03/2023 09:47:22 Degeneration of lumbar intervertebral disc 76232171 M51.36 Diabetes m ellitus screening 818836321 Z13.1 Z13.220 Z79.899 check labs Unable to cut own toenails 544699756 Z74.1 [id number] Colton Caldwell DPM [facility] [place] [place] Podiatry Karlos Coleman [address] [place] [address] 03/25/2023 09:58:24 03/25/2023 13:30:03 Pain in toe 443600866 M79.675 M79.674 secondary to ingrown toenails without infection, great toes Subungual hematoma of great toe of right foot 4789929622 0321501 S90.211A great toenail- chronic secondary to injury with 2 x 4 dropping on his toe Bilateral ingrowing nail of toe of feet 8031833147 5457990 L60.0 both corners of both great toesslant back procedure performed today without incidentEd ucated on treatment optionsPat ient will return for partial matrixecto my both corners both great toenails [id number] Osito Watson MD [facility] Primary Care [facility] [address] [facility] [address] [place] [address] 05/05/2023 09:53:24 05/05/2023 10:43:31 Degeneration of lumbar intervertebral disc 02260913 M51.36 stableno refill neededUDS todayPt understand s this medication has risk for abuse/depe ndence and agrees to take it only as prescribed and to guard from loss/theft Leukopenia 84632573 D72. 819 Increased liver function 56046758 R94.5 [id number] Colton Caldwell DPM [facility] Podiatry [place] [address] [facility] [address] [place] [address] 11/16/2023 09:19:50 11/16/2023 12:01:14 Bilateral ingrowing nail of toe of feet 8616367566 2836245 L60.0 both corners of both great toespartia l matrix procedure performed today without incidentEd ucated on wound care and dressings, if symptoms of infection occur report to ER /office immediatel yfollow up in 2 weeks [id number] Colton Caldwell DPM [facility] Podiatry [place] [address] [facility] [address] [place] [address] 11/29/2023 09:54:51 11/30/2023 13:34:53 Bilateral ingrowing nail of toe of feet 4392581748 1988809 L60.0 both corners of both great toespartia l matrix procedure healingmil d inflammato ry changes worse to the leftstart oral antibiotic sfollow-up 1 weekcontin ue dressings daily and Patient is to soak in warm Epsom salt soaks math for approximat justina 20 min daily for 5-7 days until infection has resolved. Patient is to dress the wound daily with topical antibiotic ointment and Band-Aid. Patient to monitor for signs of infection, if worsens seek medical attention at the nearest ER. Cellulitis of toe 672861 04 L03.032 left great toe [id number] Colton Calwdell DPM [facility] Podiatry [place] [address] [place] [address] 12/09/2023 11:40:58 12/09/2023 14:11:37 Superficial dehiscence of wound 7525003250 9106 T81.30XA Wounds debrided todayRx gentamicin Finish cephalexin Continue daily dressings with 3 times a day dressing changesWas h wounds daily with HibiclensF ollow-up in 1 week Cellulitis of toe 490788 04 L03.032 left great toe-resolv ed [id number] Colton Caldwell DPM [facility] Podiatry [place] [address] [place] [address] 12/20/2023 10:52:57 12/20/2023 16:38:36 Bilateral ingrowing nail of toe of feet 5291753378 5571996 L60.0 both corners of both great toes- 90% healedcont wound careMonito r for infection at present seek medical attention immediatel y Follow-up in 1-2 weeks [id number] Osito Watson MD [facility] Primary Care [facility] [address] [employer] [address] [place] [address] 01/14/2024 12:01:24 01/14/2024 12:45:51 Screening for malignant neoplasm of colon 383620096 Z12.11 Degenerati on of lumbar intervertebral disc 45305842 M51.36 stablerefi ll givenUDS appropriat e 05/09Pt understand s this medication has risk for abuse/depe ndence and agrees to take it only as prescribed and to guard from loss/theft Diabetes m carlito screening 937335657 Z13.1 Z13.220 Z79.899 check labs [id number] MICHAEL Wood [facility] Primary Care [facility] [address] [place] [address] 03/09/2024 10:20:00 03/09/2024 11:00:48 Transition of care 1621747500 105 Z75.8 d/c on 03/07 Atrial fibrillation 4943 6004 I48.91 -recently in the hospital for afib, noted sob, weakness-c ardioversi on while in hospital-c ardiology f/u on 04/05-given (6) xarelto 10mg samples and told to take 2 tabs-given (4) entresto samples and continue as ordered Degenerati on of lumbar intervertebral disc 76164376 M51.36 -chronic, stable with use of meds-refer ral to pain management given-refi ll oxycodone given Anxiety 01609117 F41.9 Sleep apnea 74051169 G47 .30 -recommend ed to get sleep study per cardiology -wakes up feeling tired/fati gued--home sleep ordered [id number] Michi Cardenas MD [facility] [address] 04/03/2024 09:25:27 04/04/2024 08:23:38 Obstructive sleep apnea syndrome 05639205 G47.33 G47.36 G47.61 [id number] MICHAEL Wood [facility] [place] [place] Primary Care [address] [place] [address] 04/07/2024 12:33:18 04/07/2024 14:10:21 [id number] Michi Cardenas MD [address] [address] 04/10/2024 10:39:03 04/11/2024 09:49:05 Obstructive sleep apnea syndrome 23113898 G47.33 G47.36 G47.61 [id number] Michi Cardenas MD [place] [address] 07/11/2024 10:33:33 07/11/2024 15:19:30 Obstructive sleep apnea syndrome 86960939 G47.33 G47.36 G47.61 Health Concerns Section Related Observation LastModified by Organization Detai ls LastModified Time None Recorded Concern Status LastModified by Organization Details LastModified Time None Recorded Advance Directives Directive None Recorded Payers Insurance Date Sequence Insurance Name Policy Number Policy Valdez Covered Member ID Valdez Member ID Guarantor Name 07/11/2024 2 [employer] (MEDICARE SUPPLEMENT) Marko Lyons [id number] Marko Lyons 07/11/2024 1 [place] Marko Lyons [id number] Marko Lyons Notes Date Note Type Note Provider Name and Address Organization Details Recorded Time 03/09/2024 text/html pt is here for hospital f/u MICHAEL Wood [address] [facility], [facility] [address], [place], [address], [facility] [employer] 03/09/2024 11:06:01 04/03/2024 text/html Primary care/Referring provider: MICHAEL Ackerman During the [facility] home sleep study on 03/23/24, AHI = 20, supine AHI = 21. At home, the patient sleeps from 11 pm to 6 am and wakes up without an alarm. Snoring: moderate, since 1980s. Snorting: no Choking: no Coughing: no Gasping: yes Gagging: no Sighing: no Witnessed apnea: yes Twitching or jerking of leg(s), arm(s), body, head: yes Teeth grinding: no Teeth clenching: no Sleeptalking: no Sleepwalking: no Sleep crying: no Bedwetting: no Tongue/lip/gum/cheek biting: no Sleeping with open mouth: yes Sleep paralysis: no Hypnagogic hallucinations: no Hypnopompic hallucinations: no Vivid dreams: yes Difficulty with sleep onset: yes Difficulty with sleep maintenance: yes Sleep interruptions: nocturia x 1 Patient wakes up with: fatigue, xerostomia, headaches Daytime cataplexy: no Morning hypersomnolence: yes Afternoon hypersomnolence: yes Caffeine sources in diet: coffee 1 cup per day, tea 1/3 gallon per day, chocolate 1/2 candy per day Associated medical and psychiatric conditions: Congestive heart failure: yes Coronary artery disease: no Myocardial infarction: no Hypertension: yesArrhythmias: yes Stroke: no Bronchial asthma: no Chronic obstructive pulmonary disease: no Depression: no Bipolar disorder: no Anxiety: yes Panic disorder: no Posttraumatic stress disorder: no Attention deficit and hyperactivity disorder: no Obsessive Compulsive disorder: no Schizophrenia: no Schizoaffective disorder: no Personality disorder: no Chronic analgesic use: oxycodone Chronic sedative/hypnotic use: no EPWORTH SLEEPINESS SCALE (ESS) CHANCE OF DOZING SCORE 0 = would never doze 1 = slight chance of dozing 2 = moderate chance of dozing 3 = high chance of dozing SITUATION AND CHANCE OF DOZING Sitting and reading - 1 Watching television - 3 Sitting inactive in a public place (e.g. a theater or meeting) - 1 As a passenger in a car for an hour without a break - 1 Lying down to rest in the afternoon when circumstances permit - 1 Sitting and talking to someone - 1 Sitting quietly after lunch without alcohol - 1 In a car, while stopped for a few minutes in the traffic - 1 TOTAL SCORE 10 Subjectively, patient has a moderate chance of dozing. Michi Cardenas MD [address] [place] [address], [id number], [place] [facility] [employer] 04/03/2024 10:35:57 04/10/2024 text/html Primary care/Referring provider: MICHAEL Ackerman CC: Patient declined CPAP titration sleep study. He wants his CPAP adjusted. During the [facility] home sleep study on 03/23/24, AHI = 20, supine AHI = 21. At home since 03/08/24, the patient uses a [employer] AirSense 11 autoset unit with heated humidification. The patient does not need the ramp to start low and go up slowly on the pressure. There is some xerostomia in a.m. There is no hose/mask condensation with water. The patient wears a [employer] medium Vitera full face mask without chin strap. There is no claustrophobia, no nostril/nose bridge irritation, no facial rash, no facial numbness, no nosebleeding. The patient feels slightly refreshed upon waking and daytime alertness is mildly improved. Energy levels are sustained for the remainder of the day. At home, the patient sleeps from 11 pm to 6 am and wakes up without an alarm. Snoring: moderate, since .Snorting: noChoking: noCoughing: noGasping: yesGagging: noSighing: noWitnessed apnea: yesTwitching or jerking of leg(s), arm(s), body, head: yesTeeth grinding: noTeeth clenching: noSleeptalking: noSleepwalking: noSleep crying: noBedwetting: noTongue/lip/gum/cheek biting: noSleeping with open mouth: yesSleep paralysis: noHypnagogic hallucinations: noHypnopompic hallucinations: noVivid dreams: yesDifficulty with sleep onset: yesDifficulty with sleep maintenance: yesSleep interruptions: nocturia x 1Patient wakes up with: fatigue, xerostomia, headachesDaytime cataplexy: noMorning hypersomnolence: yesAfternoon hypersomnolence: yesCaffeine sources in diet: coffee 1 cup per day, tea 1/3 gallon per day, chocolate 1/2 candy per day Associated medical and psychiatric conditions:Congestive heart failure: yesCoronary artery disease: noMyocardial infarction: noHypertension: yesArrhythmias: yesStroke: noBronchial asthma: noChronic obstructive pulmonary disease: noDepression: noBipolar disorder: noAnxiety: yesPanic disorder: noPosttraumatic stress disorder: noAttention deficit and hyperactivity disorder: noObsessive Compulsive disorder: noSchizophrenia: noSchizoaffective disorder: noPersonality disorder: noChronic analgesic use: oxycodoneChronic sedative/hypnotic use: no EPWORTH SLEEPINESS SCALE (ESS) CHANCE OF DOZING SCORE0 = would never doze1 = slight chance of dozing2 = moderate chance of dozing3 = high chance of dozing SITUATION AND CHANCE OF DOZINGSitting and reading - 1Watching television - 3Sitting inactive in a public place (e.g. a theater or meeting) - 1As a passenger in a car for an hour without a break - 0Lying down to rest in the afternoon when circumstances permit - 1Sitting and talking to someone - 0Sitting quietly after lunch without alcohol - 1In a car, while stopped for a few minutes in the traffic - 0TOTAL SCORE 7Subjectively, patient has a slight chance of dozing. Michi Cardenas MD [address] [place] [address], [place], [address], [place] [facility] 04/10/2024 11:54:14 07/11/2024 text/html Primary care/Referring provider: MICHAEL Ackerman During the [facility] home sleep study on 03/23/24, AHI = 20, supine AHI = 21. At home since 04/10/24, the patient uses a [employer]Med AirSense 11 autoset unit with heated humidification. The patient does not need the ramp to start low and go up slowly on the pressure. There is some xerostomia in a.m. There is no hose/mask condensation with water. The patient wears a [employer] medium Vitera full face mask with chin strap. There is no claustrophobia, no nostril/nose bridge irritation, no facial rash, no facial numbness, no nosebleeding. The patient feels slightly refreshed upon waking and daytime alertness is mildly improved. Energy levels are sustained for the remainder of the day. At home, the patient sleeps from 11 pm to 6 am and wakes up without an alarm. Snoring: moderate, since 1980s.Snorting: noChoking: noCoughing: noGasping: yesGagging: noSighing: noWitnessed apnea: yesTwitching or jerking of leg(s), arm(s), body, head: yesTeeth grinding: noTeeth clenching: noSleeptalking: noSleepwalking: noSleep crying: noBedwetting: noTongue/lip/gum/cheek biting: noSleeping with open mouth: yesSleep paralysis: noHypnagogic hallucinations: noHypnopompic hallucinations: noVivid dreams: yesDifficulty with sleep onset: yesDifficulty with sleep maintenance: yesSleep interruptions: nocturia x 1Patient wakes up with: fatigue, xerostomia, headachesDaytime cataplexy: noMorning hypersomnolence: yesAfternoon hypersomnolence: yesCaffeine sources in diet: coffee 1 cup per day, tea 1/3 gallon per day, chocolate 1/2 candy per day Associated medical and psychiatric conditions:Congestive heart failure: yesCoronary artery disease: noMyocardial infarction: noHypertension: yesArrhythmias: yesStroke: noBronchial asthma: noChronic obstructive pulmonary disease: noDepression: noBipolar disorder: noAnxiety: yesPanic disorder: noPosttraumatic stress disorder: noAttention deficit and hyperactivity disorder: noObsessive Compulsive disorder: noSchizophrenia: noSchizoaffective disorder: noPersonality disorder: noChronic analgesic use: oxycodoneChronic sedative/hypnotic use: no EPWORTH SLEEPINESS SCALE (ESS) CHANCE OF DOZING SCORE0 = would never doze1 = slight chance of dozing2 = moderate chance of dozing3 = high chance of dozing SITUATION AND CHANCE OF DOZINGSitting and reading - 1Watching television - 1Sitting inactive in a public place (e.g. a theater or meeting) - 0As a passenger in a car for an hour without a break - 0Lying down to rest in the afternoon when circumstances permit - 2Sitting and talking to someone - 0Sitting quietly after lunch without alcohol - 0In a car, while stopped for a few minutes in the traffic - 0TOTAL SCORE 4Subjectively, patient has a slight chance of dozing. Michi Cardenas MD [address] [place] [address], [facility] [address], [place], [address], [place] [facility] 07/11/2024 13:32:11
--- OUTSIDE RECORDS SUMMARY | 2025-10-15 12:06 | XMS_ITS | Clinical Summary ---
Author Organization [facility] Address [address] [place] [address] Care Team Providers Care Offset Printing Operator Name Role Phone Mariely Gold NP Primary Care Provider [phone] Allergies Active Allergy Reactions Criticality Noted Date Comments No Known Allergies Other (See comments) Low 019 Reaction: Medications ALPRAZolam (XANAX) 0.5 mg tablet Take 1 tablet (0.5 mg total) by mouth 3 (three) times a day as needed Active triamcinolone (KENALOG) 0.1 % ointment Active oxyCODONE-acetami nophen (PERCOCET) 5-325 mg per tablet 0 019 Active multivitamin,tx-m inerals (VITAMINS AND MINERALS) tablet Take 1 tablet by mouth Active finasteride (PROSCAR) 5 mg tablet Take 1 tablet (5 mg total) by mouth daily Active atorvastatin (LIPITOR) 40 mg tabletIndications :Abnormal result of other cardiovascular function study TAKE 1 TABLET(40 MG) BY MOUTH DAILY 90 tablet 3 025 Active amiodarone (PACERONE) 200 mg tablet TAKE 1 TABLET(200 MG) BY MOUTH DAILY 90 tablet 2 025 Active Additional Information Patient not taking.Reported on 06/01/2025 amLODIPine-benaze priL (LOTREL) 10-20 mg per capsule Take 1 capsule by mouth daily Active omeprazole (PriLOSEC) 20 mg capsule Take 1 capsule (20 mg total) by mouth daily Active vit A/C/E ac/ZnOx/cupric oxide (EYE VITAMIN AND MINERALS ORAL) Take by mouth A ctive aspirin 81 mg enteric coated tablet Take 1 tablet (81 mg total) by mouth daily Active tamsulosin (FLOMAX) 0.4 mg extended release capsule tamsulosin 0.4 mg capsule Active Xarelto 20 mg tablet TAKE 1 TABLET(20 MG) BY MOUTH DAILY WITH DINNER 30 tablet 4 025 Active Xarelto 20 mg tablet TAKE 1 TABLET(20 MG) BY MOUTH DAILY WITH DINNER 30 tablet 4 025 2024 Discontinued warfarin (COUMADIN) 3 mg tablet Take 1 tablet (3 mg total) by mouth 2024 Discontinued(A lternate therapy) Active Problems Problem Noted Date Diagnosed Date Paroxysmal atrial fibrillation 04/05/2024 Abnormal result of other cardiovascular function study 04/05/2024 Dilated cardiomyopathy 04/05/2024 Abdominal pain 07/01/2021 Overview (07/01/2021): Added automatically from request for surgery [id number] Surgical History Surgery Date Site/Laterality Comments ABSCESS [...] on file Legal Sex Male 8:30 AM PORTABLE [employer] Gender Identity Not on file Sexual Orientation Not on file Last Filed Vital Signs Vital Sign Reading Time Taken Comments Blood Pressure 128/70 06/01/2025 1:10 PM CDT Pulse 54 06/01/2025 1:10 PM CDT Temperature 36.5 C (97.7 F) 07/02/2021 12:00 PM CDT Respiratory Rate 18 07/02/2021 12:3 0 PM CDT Oxygen Saturation 92% 06/01/2025 1:10 PM CDT Inhaled Oxygen Concentration - - Weight 86.5 kg (190 lb 11.2 oz) 06/01/2025 1:10 PM CDT Height 170.2 cm (5' 7) 06/01/2025 1:10 PM CDT Body Mass Index 29.87 06/01/2025 1:10 PM CDT Plan of Treatment Health Maintenance Due Date Last Done Comments Colon Cancer Screening-Colonoscopy 1950 Depression Screening 1950 Hepatitis C Screening 1950 DTaP/Tdap/Td Vaccine (1 - Tdap) 1962 Hepatitis B Screening 1969 Pneumococcal vaccine 65+ (1 of 1 - PCV) 2001 Zoster Vaccine (2 of 3) 03/20/2016 01/24/2016 Well Visit 65+ 2016 Fall Risk Assessment 07/02/2022 07/02/2021 Influenza Vaccine (#1) 2025 07/27/2021 Abdominal Aortic Aneurysm (A AA) Screen Completed [...] M.D. FINAL REPORT ACC# Date Time Exam [id number] February 17, 2017 15:27:[id number] Abd and Pelvis with cont EXAMINATION: [...] catheter without residual fluid collection. Requested By: ADRIANO BRODERICK MD, PHD Dictated By: ANUJ CORRAL M.D. on Feb 17 2017 3:51P This document has been electronically signed by: ANUJ CORRAL M.D. on Feb 17 2017 3:51P [id number] Procedure Note Miscellaneous, Not In File / Provider, MD Marjorie - 03/13/2017 ANUJ CORRAL M.D. FINAL REPORT ACC# Date Time Exam [id number] February 17, 2017 15:27:[id number] Abd and Pelvis with cont EXAMINATION: [...] catheter without residual fluid collection. Requested By: ADRIANO BRODERICK MD, PHD Dictated By: ANUJ CORRAL M.D. on Feb 17 2017 3:51P This document has been electronically signed by: ANUJ CORRAL M.D. on Feb 17 2017 3:51P [id number] us Not In File Miscellaneous IMG CT PROCEDURES Therese l Result from Last 3 Months or Most Recently Relevant to Health Maintenance Insurance [facility] Advance Directives For more information, please contact: [phone] * Full Code (Latest Code Status on File) Date Activated Date Inactivated Comments 07/02/2021 11:26 AM 07/02/2021 4:57 PM Care Teams Offset Printing Operator Relationship Specialty Start Date End Date Mariely Gold NP [address] [place] [address] PCP - General Family Practice 08/31/24
== END 2025-10-15 11:28 | disposition home or self-care (01) ==
PROVIDERS: PCP Nurse Practitioner Family; Visit Provider Nurse Practitioner Family
DX: R05.9 Cough, unspecified (principal)
CPT/HCPCS: 71046